=== PATIENT | male | born 1940 | race Caucasian/White ===

== ENCOUNTER 2018-04-25 21:58 | Inpatient (IN) | payer OTHER, MEDICARE ==
[~2018-04-25] VITALS: Ht 180.3 cm; Wt 120.1 kg
[~2018-04-25 21:58] MED LIST: ALBIPROI INH; ALBU2.5V5 NEB; ASPI325 PO; ASPI81EC PO; ATOR40TA PO; ATORVASTATIN CA80 MG PO; AZIT250 PO; AZIT500 PO; CEPH500 PO; CILO100 PO; CILO50 PO; CLOP75 PO; COMBIVENT RESPIM4 GM IH; DELTASONE20 MG PO; DIAZ5 PO; DOCU100 PO; DURICEF; FERR325 PO; FISH1000 PO; FLUSAL2505 INH; FURO20 PO; GABA100 PO; GABA300 PO; GABA600 PO; HYDACE10B PO; HYDACE5 PO; HYDACE5325 PO; HYDCHL12.5 PO; HYDRA25 PO; HYDROCHLOTHIAZIDE; LAVAP17G PO; LISI20 PO; LOSA50 PO; LOSHYD100 PO; METO25 PO; MULVITMIND PO; NITR.4SL SL; NYST100P TOP; OMEG1CAP30 PO; OMEP20ER PO; OMEP40CA12 PO; OXYACE5T PO; Omeprazole20 M1 PO; PINDOLOL 5 MG; PINDOLOL PO; POLY17UD PO; POTCHL10ER PO; POTCHL20ER PO; PRED10; PRED20 PO; ROBITUSSIN DM PO; ROSU10TA PO; SIMV20 PO; SIMV5 PO; SPIR25 PO; STRIVERDI RESPIM4 GM INH; SULTRIDS PO; TAMS.4ER PO; THIA100 PO; TIOT18 INH; UREATC TOP; Ventolin Soln3 ML INH; [UNRECOGNIZED DRUG - REMARK]
[2018-04-25 22:12] LABS: Hematocrit 40.9 % (37.0-53.0); Hemoglobin 13.8 g/dL (13.5-17.5); Mean Corpuscular HGB 35.5 pg (26.0-34.0); Mean Corpuscular HGB Conc 33.7 g/dL (31.5-36.5); Mean Corpuscular Volume 105 fL (80-100); Mean Platelet Volume 9.6 fL (9.1-12.4); Platelet Count 212 K/mm3 (150-400); RDW Coefficient Variation 13.7 % (11.7-14.2); RDW Standard Deviation 51.8 fL (35.1-46.3); Red Blood Cell Count 3.89 M/mm3 (4.30-5.90); White Blood Cell Count 12.46 K/mm3 (4.00-11.30)
[2018-04-25 22:30] LABS: BAND PERCENT MAN 4 % (0-8); BASOPHILS ABSOLUTE MAN 0.12 K/mm3 (0.00-0.23); BASOPHILS PERCENT MAN 1 % (0-2); EOSINOPHILS ABSOLUTE MAN 1.74 K/mm3 (0.00-0.68); EOSINOPHILS PERCENT MAN 14 % (0-6); LYMPHOCYTES ABSOLUTE MAN 2.49 K/mm3 (0.84-5.20); LYMPHOCYTES PERCENT MAN 20 % (21-46); MONOCYTES ABSOLUTE MAN 0.74 K/mm3 (0.16-1.47); MONOCYTES PERCENT MAN 6 % (4-13); MYELOCYTE ABSOLUTE MAN 0.12 K/mm3 (0.00-0.00); MYELOCYTE PERCENT MAN 1 % (0-0); NEUTROPHILS ABSOLUTE MAN 7.22 K/mm3 (1.96-9.15); SEG NEUTROPHILS PERCENT MAN 54 % (41-73); TOTAL CELLS COUNTED 100
[2018-04-25 22:35] LABS: Alanine Aminotransfer (ALT/SGP 33 U/L (12-78); Albumin/Globulin Ratio 1.1 (0.8-1.8); Alk Phos 73 U/L (50-136); Anion Gap 10 mmol/L (6-16); Aspartate Aminotrans (AST/SGOT 22 U/L (12-37); Blood Urea Nitrogen 13 mg/dL (8-24); Bun/Creatinine Ratio 15.3 (12.0-20.0); CO2, Blood 26 mmol/L (21-32); Calcium, Blood 9.1 mg/dL (8.5-10.1); Chloride, Blood 99 mmol/L (98-108); Creatinine, Blood 0.85 mg/dL (0.60-1.20); Globulin, Blood 3.5 g/dL (2.2-4.0); Glomerular Filtration Rate >60 (60-); Glucose, Blood 164 mg/dL (70-99); Potassium, Blood 4.1 mmol/L (3.5-5.5); Sodium, Blood 135 mmol/L (136-145); Total Protein, Blood 7.5 g/dL (6.4-8.2)
[2018-04-25] MEDS ORDERED: ALBU90OI INH (22:38)
[2018-04-25] MEDS ORDERED: ALBU3IS INH (22:38)
[2018-04-25] MEDS ORDERED: ASPI325 PO (22:39)
[2018-04-25] MEDS ORDERED: CHOL10002 PO (22:39)
[2018-04-25] MEDS ORDERED: CILO100 (22:40)
[2018-04-25] MEDS ORDERED: CILO100 PO (22:40)
[2018-04-25] MEDS ORDERED: ATHLETE'S FOO35.4 GM TOP (22:42)
[2018-04-25] MEDS ORDERED: CYCL10 PO (22:43)
[2018-04-25] MEDS ORDERED: FISH OIL 1,0001 EAC1 PO (22:44)
[2018-04-25] MEDS ORDERED: Mucus Relief400 MG PO (22:45)
[2018-04-25] MEDS ORDERED: LOSARTAN POTAS100 MG PO (22:45)
[2018-04-25] MEDS ORDERED: GABA300 PO (22:45)
[2018-04-25] MEDS ORDERED: Hair, Skin & N1 EACH PO (22:46)
[2018-04-25] MEDS ORDERED: ASMANEX220 MC1 INH (22:46)
[2018-04-25 22:50] LABS: Troponin I 0.523 ng/mL (0.000-0.040)
[2018-04-25] MEDS ORDERED: STIOLTO RESPIMAT4 GM INH (22:55)
[2018-04-25] MEDS ORDERED: PYRI100 PO (22:57)
[2018-04-26 04:36] LABS: BASOPHILS ABSOLUTE AUTO 0.03 K/mm3 (0.00-0.23); BASOPHILS PERCENT AUTO 0 % (0-2); EOSINOPHILS ABSOLUTE AUTO 0.17 K/mm3 (0.00-0.68); EOSINOPHILS PERCENT AUTO 2 % (0-6); Hematocrit 36.8 % (37.0-53.0); Hemoglobin 12.7 g/dL (13.5-17.5); IMMATURE GRAN ABSOLUTE AUTO 0.09 K/mm3 (0.00-0.10); IMMATURE GRAN PERCENT AUTO 1 % (0-1); LYMPHOCYTES ABSOLUTE AUTO 0.64 K/mm3 (0.84-5.20); LYMPHOCYTES PERCENT AUTO 8 % (21-46); MONOCYTES ABSOLUTE AUTO 0.18 K/mm3 (0.16-1.47); MONOCYTES PERCENT AUTO 2 % (4-13); Mean Corpuscular HGB 36.5 pg (26.0-34.0); Mean Corpuscular HGB Conc 34.5 g/dL (31.5-36.5); Mean Corpuscular Volume 106 fL (80-100); Mean Platelet Volume 9.7 fL (9.1-12.4); NEUTROPHILS ABSOLUTE AUTO 7.28 K/mm3 (1.96-9.15); NEUTROPHILS PERCENT AUTO 87 % (41-73); Platelet Count 184 K/mm3 (150-400); RDW Coefficient Variation 13.6 % (11.7-14.2); RDW Standard Deviation 53.4 fL (35.1-46.3); Red Blood Cell Count 3.48 M/mm3 (4.30-5.90); White Blood Cell Count 8.39 K/mm3 (4.00-11.30)
[2018-04-26 05:01] LABS: Anion Gap 12 mmol/L (6-16); Blood Urea Nitrogen 17 mg/dL (8-24); Bun/Creatinine Ratio 18.5 (12.0-20.0); CO2, Blood 22 mmol/L (21-32); Calcium, Blood 8.7 mg/dL (8.5-10.1); Chloride, Blood 101 mmol/L (98-108); Creatinine, Blood 0.92 mg/dL (0.60-1.20); Glomerular Filtration Rate >60 (60-); Glucose, Blood 181 mg/dL (70-99); Potassium, Blood 4.4 mmol/L (3.5-5.5); Sodium, Blood 135 mmol/L (136-145)
[2018-04-26 10:53] LABS: Troponin I 5.58 ng/mL (0.000-0.040)
[2018-04-26 16:45] LABS: Troponin I 7.1 ng/mL (0.000-0.040)
[2018-04-27 00:56] LABS: BASOPHILS ABSOLUTE AUTO 0.02 K/mm3 (0.00-0.23); BASOPHILS PERCENT AUTO 0 % (0-2); EOSINOPHILS ABSOLUTE AUTO 0.04 K/mm3 (0.00-0.68); EOSINOPHILS PERCENT AUTO 0 % (0-6); Hematocrit 35.8 % (37.0-53.0); Hemoglobin 12.3 g/dL (13.5-17.5); IMMATURE GRAN ABSOLUTE AUTO 0.16 K/mm3 (0.00-0.10); IMMATURE GRAN PERCENT AUTO 1 % (0-1); LYMPHOCYTES PERCENT AUTO 9 % (21-46); MONOCYTES ABSOLUTE AUTO 0.77 K/mm3 (0.16-1.47); MONOCYTES PERCENT AUTO 6 % (4-13); Mean Corpuscular HGB 36.4 pg (26.0-34.0); Mean Corpuscular HGB Conc 34.4 g/dL (31.5-36.5); Mean Corpuscular Volume 106 fL (80-100); Mean Platelet Volume 9.9 fL (9.1-12.4); NEUTROPHILS ABSOLUTE AUTO 10.51 K/mm3 (1.96-9.15); NEUTROPHILS PERCENT AUTO 83 % (41-73); Platelet Count 179 K/mm3 (150-400); RDW Coefficient Variation 13.4 % (11.7-14.2); RDW Standard Deviation 52.9 fL (35.1-46.3); Red Blood Cell Count 3.38 M/mm3 (4.30-5.90)
[2018-04-27 01:10] LABS: Anion Gap 10 mmol/L (6-16); Blood Urea Nitrogen 18 mg/dL (8-24); Bun/Creatinine Ratio 21.7 (12.0-20.0); CO2, Blood 24 mmol/L (21-32); Calcium, Blood 8.6 mg/dL (8.5-10.1); Chloride, Blood 102 mmol/L (98-108); Creatinine, Blood 0.83 mg/dL (0.60-1.20); Glomerular Filtration Rate >60 (60-); Glucose, Blood 151 mg/dL (70-99); Potassium, Blood 4.1 mmol/L (3.5-5.5); Sodium, Blood 136 mmol/L (136-145)
[2018-04-28 05:02] LABS: BASOPHILS ABSOLUTE AUTO 0.02 K/mm3 (0.00-0.23); BASOPHILS PERCENT AUTO 0 % (0-2); EOSINOPHILS PERCENT AUTO 0 % (0-6); Hematocrit 36.4 % (37.0-53.0); Hemoglobin 12.5 g/dL (13.5-17.5); IMMATURE GRAN ABSOLUTE AUTO 0.29 K/mm3 (0.00-0.10); IMMATURE GRAN PERCENT AUTO 2 % (0-1); LYMPHOCYTES ABSOLUTE AUTO 1.03 K/mm3 (0.84-5.20); LYMPHOCYTES PERCENT AUTO 7 % (21-46); MONOCYTES ABSOLUTE AUTO 0.84 K/mm3 (0.16-1.47); MONOCYTES PERCENT AUTO 6 % (4-13); Mean Corpuscular HGB 36.2 pg (26.0-34.0); Mean Corpuscular HGB Conc 34.3 g/dL (31.5-36.5); Mean Corpuscular Volume 106 fL (80-100); Mean Platelet Volume 10.5 fL (9.1-12.4); NEUTROPHILS ABSOLUTE AUTO 11.71 K/mm3 (1.96-9.15); NEUTROPHILS PERCENT AUTO 84 % (41-73); Platelet Count 185 K/mm3 (150-400); RDW Coefficient Variation 13.4 % (11.7-14.2); RDW Standard Deviation 52.7 fL (35.1-46.3); Red Blood Cell Count 3.45 M/mm3 (4.30-5.90); White Blood Cell Count 13.89 K/mm3 (4.00-11.30)
[2018-04-28 05:27] LABS: Anion Gap 10 mmol/L (6-16); Blood Urea Nitrogen 20 mg/dL (8-24); Bun/Creatinine Ratio 25.3 (12.0-20.0); CO2, Blood 21 mmol/L (21-32); Calcium, Blood 8.4 mg/dL (8.5-10.1); Chloride, Blood 104 mmol/L (98-108); Creatinine, Blood 0.79 mg/dL (0.60-1.20); Glomerular Filtration Rate >60 (60-); Glucose, Blood 134 mg/dL (70-99); Potassium, Blood 4.1 mmol/L (3.5-5.5); Sodium, Blood 135 mmol/L (136-145)
[2018-04-29 04:37] LABS: BASOPHILS ABSOLUTE AUTO 0.02 K/mm3 (0.00-0.23); BASOPHILS PERCENT AUTO 0 % (0-2); EOSINOPHILS ABSOLUTE AUTO 0.01 K/mm3 (0.00-0.68); EOSINOPHILS PERCENT AUTO 0 % (0-6); Hematocrit 35.5 % (37.0-53.0); Hemoglobin 12.3 g/dL (13.5-17.5); IMMATURE GRAN ABSOLUTE AUTO 0.49 K/mm3 (0.00-0.10); IMMATURE GRAN PERCENT AUTO 5 % (0-1); LYMPHOCYTES ABSOLUTE AUTO 0.75 K/mm3 (0.84-5.20); LYMPHOCYTES PERCENT AUTO 7 % (21-46); MONOCYTES ABSOLUTE AUTO 0.48 K/mm3 (0.16-1.47); MONOCYTES PERCENT AUTO 5 % (4-13); Mean Corpuscular HGB 36.4 pg (26.0-34.0); Mean Corpuscular HGB Conc 34.6 g/dL (31.5-36.5); Mean Corpuscular Volume 105 fL (80-100); Mean Platelet Volume 9.8 fL (9.1-12.4); NEUTROPHILS ABSOLUTE AUTO 8.53 K/mm3 (1.96-9.15); NEUTROPHILS PERCENT AUTO 83 % (41-73); Platelet Count 165 K/mm3 (150-400); RDW Coefficient Variation 13.2 % (11.7-14.2); RDW Standard Deviation 51.1 fL (35.1-46.3); Red Blood Cell Count 3.38 M/mm3 (4.30-5.90); White Blood Cell Count 10.28 K/mm3 (4.00-11.30)
[2018-04-29] MEDS ORDERED: LEVO750 PO (13:56)
== END 2018-04-29 15:10 | disposition home or self-care (01) | DRG 193 ==
LOC: ER 21:58 → PCU 23:37
PROVIDERS: Emergency Medicine; Family Medicine; Nurse Practitioner Acute Care
PROC: 5A09357 Assistance with Respiratory Ventilation, Less than 24 Consecutive Hours, Continuous Positive Airway Pressure (ICD-10-PCS; principal; 2018-04-25)
PROC: 5A09357 Assistance with Respiratory Ventilation, Less than 24 Consecutive Hours, Continuous Positive Airway Pressure (ICD-10-PCS; 2018-04-29)
DX: J15.9 Unspecified bacterial pneumonia (principal); J96.01 Acute respiratory failure with hypoxia; J44.1 Chronic obstructive pulmonary disease with (acute) exacerbation; I50.32 Chronic diastolic (congestive) heart failure; R07.9 Chest pain, unspecified; R79.89 Other specified abnormal findings of blood chemistry; I11.0 Hypertensive heart disease with heart failure; K21.9 Gastro-esophageal reflux disease without esophagitis; G47.33 Obstructive sleep apnea (adult) (pediatric); I73.9 Peripheral vascular disease, unspecified; E78.5 Hyperlipidemia, unspecified; N40.0 Benign prostatic hyperplasia without lower urinary tract symptoms; Z95.820 Peripheral vascular angioplasty status with implants and grafts; Z87.891 Personal history of nicotine dependence; Z79.899 Other long term (current) drug therapy; R73.9 Hyperglycemia, unspecified; T38.0X5A Adverse effect of glucocorticoids and synthetic analogues, initial encounter; Y92.239 Unspecified place in hospital as the place of occurrence of the external cause; E66.9 Obesity, unspecified; Z68.36 Body mass index [BMI] 36.0-36.9, adult
CPT/HCPCS: 36415; 71045; 71046; 80048; 80053; 82550; 83605; 83880; 84145; 84484; 85025; 85730; 87040; 93005; 93010; 93970; 94640; 94644; 94660; 94762; 96365; 96366; 99285-25; C8929; J0360; J1644; J1650; J1956; J2930; J7030; Q9957

== ENCOUNTER 2018-07-05 12:23 | Emergency (ER) | payer MEDICARE, OTHER ==
[~2018-07-05] VITALS: Ht 180.3 cm; Wt 117.9 kg
[~2018-07-05 12:23] MED LIST changes: +ALBU3IS INH; +ALBU90OI INH; +ASMANEX220 MC1 INH; +ATHLETE'S FOO35.4 GM TOP; +CHOL10002 PO; +CILO100; +CYCL10 PO; +FISH OIL 1,0001 EAC1 PO; +Hair, Skin & N1 EACH PO; +LEVO750 PO; +LOSARTAN POTAS100 MG PO; +Mucus Relief400 MG PO; +PYRI100 PO; +STIOLTO RESPIMAT4 GM INH
[2018-07-05] MEDS ORDERED: Naprosyn500 MG PO (13:51)
== END 2018-07-05 13:58 | disposition home or self-care (01) ==
LOC: ER 12:23
DX: M54.2 Cervicalgia (principal); I10 Essential (primary) hypertension; Z88.0 Allergy status to penicillin; Z88.5 Allergy status to narcotic agent; Z88.1 Allergy status to other antibiotic agents; Z88.8 Allergy status to other drugs, medicaments and biological substances; Z88.6 Allergy status to analgesic agent; Z79.899 Other long term (current) drug therapy; Z79.51 Long term (current) use of inhaled steroids; Z79.82 Long term (current) use of aspirin
CPT/HCPCS: 72040; 99283-25

== ENCOUNTER 2019-04-12 18:56 | Observation (INO) | payer OTHER ==
[~2019-04-12] VITALS: Ht 180.3 cm; Wt 124.7 kg
[~2019-04-12 18:56] MED LIST changes: -ASMANEX220 MC1 INH; +ASMANEX220 MC3 INH; +ASPI81CH PO; -CHOL10002 PO; +LOSA25 PO; -LOSARTAN POTAS100 MG PO; +Naprosyn500 MG PO; +POTA10T PO; -POTCHL20ER PO; -STRIVERDI RESPIM4 GM INH; +VITAMIN D31000 UNIT PO
[2019-04-12 19:59] LABS: BASOPHILS ABSOLUTE AUTO 0.04 K/mm3 (0.00-0.23); BASOPHILS PERCENT AUTO 1 % (0-2); EOSINOPHILS ABSOLUTE AUTO 0.43 K/mm3 (0.00-0.68); EOSINOPHILS PERCENT AUTO 7 % (0-6); Hematocrit 31.9 % (37.0-53.0); Hemoglobin 10.8 g/dL (13.5-17.5); IMMATURE GRAN ABSOLUTE AUTO 0.05 K/mm3 (0.00-0.10); IMMATURE GRAN PERCENT AUTO 1 % (0-1); LYMPHOCYTES ABSOLUTE AUTO 1.49 K/mm3 (0.84-5.20); LYMPHOCYTES PERCENT AUTO 24 % (21-46); MONOCYTES ABSOLUTE AUTO 0.72 K/mm3 (0.16-1.47); MONOCYTES PERCENT AUTO 12 % (4-13); Mean Corpuscular HGB 37.6 pg (26.0-34.0); Mean Corpuscular HGB Conc 33.9 g/dL (31.5-36.5); Mean Corpuscular Volume 111 fL (80-100); Mean Platelet Volume 9.5 fL (9.1-12.4); NEUTROPHILS PERCENT AUTO 56 % (41-73); Platelet Count 213 K/mm3 (150-400); RDW Coefficient Variation 13.1 % (11.7-14.2); RDW Standard Deviation 52.7 fL (35.1-46.3); Red Blood Cell Count 2.87 M/mm3 (4.30-5.90); White Blood Cell Count 6.13 K/mm3 (4.00-11.30)
[2019-04-12 20:24] LABS: Alanine Aminotransfer (ALT/SGP 23 U/L (12-78); Albumin, Blood 3.5 g/dL (3.4-5.0); Albumin/Globulin Ratio 1.1 (0.8-1.8); Alk Phos 71 U/L (50-136); Anion Gap 7 mmol/L (6-16); Aspartate Aminotrans (AST/SGOT 19 U/L (12-37); Blood Urea Nitrogen 21 mg/dL (8-24); Bun/Creatinine Ratio 17.6 (12.0-20.0); CO2, Blood 25 mmol/L (21-32); Calcium, Blood 8.7 mg/dL (8.5-10.1); Chloride, Blood 102 mmol/L (98-108); Creatinine, Blood 1.19 mg/dL (0.60-1.20); Globulin, Blood 3.1 g/dL (2.2-4.0); Glomerular Filtration Rate >60 (60-); Glucose, Blood 96 mg/dL (70-99); Magnesium, Blood 2.1 mg/dL (1.6-2.4); Potassium, Blood 5.3 mmol/L (3.5-5.5); Sodium, Blood 134 mmol/L (136-145); Total Protein, Blood 6.6 g/dL (6.4-8.2); Troponin I 0.209 ng/mL (0.000-0.040)
[2019-04-12] MEDS ORDERED: ACET500 PO (21:12)
[2019-04-12] MEDS ORDERED: FINA5 PO (21:13)
[2019-04-12] MEDS ORDERED: Culturelle1 CAP PO (21:14)
[2019-04-12] MEDS ORDERED: BACL10 PO (21:20)
[2019-04-12] MEDS ORDERED: Naproxen250 MG PO (21:24)
--- NOTE | 2019-04-12 23:32 | NUR ---
2250 PT ADMITTED TO RM 357 PER WHEELCHAIR FROM ER. TELEMETRY REFLECTS SINUS BRADYCARDIA AT 55. 2320 KILN FURNITURE SAW TENDER JOHN CALLED AND REPORT PATIENT HAD 7 SECOND PAUSE WITH CURRENT RYTHYM SECOND DEGREE BLOCK, TYPE I. THIS NURSE CALLED Malika SAM NP AND ADVISED OF ALL THIS INFO. CONTINUE TO MONITOR.
--- NOTE | 2019-04-13 06:31 | NUR ---
SHIFT SUMMARY: 78 Y/O MALE RESTED COMFORTABLY ALL SHIFT. PT IS ALERT AND ORIENTED X 4, ABLE TO TRANSFER AND AMBULATE BATHROOM AND BACK X 1 STANDBY ASSIST. PT DENIES CHEST PAIN OR NAUSEA. PTS TELEMETRY REFLECTS NSR, SECOND DEGREE HEART BLOCK, TYPE I. PT DID HAVE ONE EPISODE 6.7 SECOND FLAT LINE WHICH WAS REPORTED TO MD. PTS BED LOW POSITION, CALL LIGHT AT SIDE.
--- NOTE | 2019-04-13 20:04 | NUR ---
SHIFT SUMMARY PT A&Ox4. CALM AND COOPERATIVE. PT RESTING IN BED DURING SHIFT. UP 1 PERSON ASSIST TO BATHROOM. PT DENIES PAIN, SOB AND N/V DURINGS SHIFT. PT RECEIVING PO ANTIBIOTICS FOR CELLULITIS TO LLE, BLE DARK RED IN COLOR. TELE SECOND DEGREE HB TYPE 1, NO TELE EVENT REPORT DURING SHIFT. DR CARRASCO CONSULTED. VSS. NO OTHER ACUTE CHANGES NOTED DURING SHIFT. REPORT GIVEN TO ONCOMING RN.
[2019-04-14 04:57] LABS: Anion Gap 9 mmol/L (6-16); Blood Urea Nitrogen 22 mg/dL (8-24); Bun/Creatinine Ratio 20.4 (12.0-20.0); CO2, Blood 23 mmol/L (21-32); Calcium, Blood 8.6 mg/dL (8.5-10.1); Chloride, Blood 102 mmol/L (98-108); Creatinine, Blood 1.08 mg/dL (0.60-1.20); Glomerular Filtration Rate >60 (60-); Glucose, Blood 103 mg/dL (70-99); Potassium, Blood 4.2 mmol/L (3.5-5.5); Sodium, Blood 134 mmol/L (136-145)
--- NOTE | 2019-04-14 06:26 | NUR ---
SHIFT SUMMARY: 78 Y/O OBESE MALE RESTED COMFORTABLY ALL SHIFT WITH NO C/O PAIN, DYSPNEA OR NAUSEA. PTS LLE STILL RED AND WARM TO TOUCH WITH KEFLEX PO BEING TAKEN. PT HAD CARDIOLOGY CONSULT AND MAY HAVE POSSIBLE HALTER MONITOR AT TIME DISCHARGE. PT EAGER TO RETURN HOME. PTS USING A WARM HEATING K PAD TO NECK FOR GENERALIZED DISCOMFORT. PTS BED LOW POSITION, CALL LIGHT AT SIDE.
--- NOTE | 2019-04-14 11:15 | NUR ---
CARDIOLOGY: DR BENOIT IN TO SEE PATIENT. OK FOR PATIENT TO DC HOME LONG FOLLOW UP CAN BE ARRNAGED. [facility] TO SEE ABOUT [facility].
[2019-04-14] MEDS ORDERED: CEPH500 PO (12:42)
--- NOTE | 2019-04-14 14:10 | NUR ---
DISCHARGE: PT DC TO HOME WITH FAMILY. SCRIPT GIVEN, [facility] TO [facility]. ORDER ENTERED FOR HOLTER MONITOR. PT TO FOLLOW UP WITH CARDIOLOGY FOR OUTPATIENT WORKUP. VERBALIZED UNDERSTANDING OF INSTRUCTIONS, FOLLOW UP, PROBLEMS TO REPORT AND MEDICATIONS. IV DC'D WNL. PT LEFT VIA WHEELCHAIR TO CAR WITH BELONGINGS.
== END 2019-04-14 14:15 | disposition home or self-care (01) ==
LOC: ER 18:56 → MEDS 18:57 → ENPENDDIS 04-14 12:14 → MEDS 04-14 14:15
PROVIDERS: Emergency Medicine; Internal Medicine; ADMIT Hospitalist
DX: I44.1 Atrioventricular block, second degree (principal); I87.2 Venous insufficiency (chronic) (peripheral); J44.9 Chronic obstructive pulmonary disease, unspecified; R77.8 Other specified abnormalities of plasma proteins; E66.9 Obesity, unspecified; I73.9 Peripheral vascular disease, unspecified; I50.30 Unspecified diastolic (congestive) heart failure
CPT/HCPCS: 36415; 80048; 80053; 83735; 84484; 85025; 93005; 93010; 93306; 94640; 94760; 96372; 99285; A9270; G0378; J1650

== ENCOUNTER 2019-05-24 23:50 | Emergency (ER) | payer OTHER ==
[~2019-05-24] VITALS: Ht 180.3 cm; Wt 127.0 kg
[~2019-05-24 23:50] MED LIST changes: +ACET500 PO; +BACL10 PO; +Culturelle1 CAP PO; +FINA5 PO; +Naproxen250 MG PO
[2019-05-25 00:25] LABS: Calcium, Ionized (POC) 1.17 mmol/L (1.10-1.46); Chloride (POC) 97 mmol/L (98-108); Creatinine (POC) 1.1 mg/dL (0.8-1.3); Glucose (ISTAT POC) 101 mg/dL (70-99); Hemoglobin (POC) 11.9 g/dL (13.5-17.5); Potassium (POC) 4.4 mmol/L (3.5-5.5); Sodium (POC) 129 mmol/L (135-148); Total CO2 (POC) 20 mmol/L (21-32)
[2019-05-25 00:59] LABS: BASOPHILS ABSOLUTE AUTO 0.05 K/mm3 (0.00-0.23); BASOPHILS PERCENT AUTO 1 % (0-2); EOSINOPHILS ABSOLUTE AUTO 0.42 K/mm3 (0.00-0.68); EOSINOPHILS PERCENT AUTO 7 % (0-6); Hematocrit 34.5 % (37.0-53.0); Hemoglobin 11.6 g/dL (13.5-17.5); IMMATURE GRAN ABSOLUTE AUTO 0.07 K/mm3 (0.00-0.10); IMMATURE GRAN PERCENT AUTO 1 % (0-1); LYMPHOCYTES ABSOLUTE AUTO 1.47 K/mm3 (0.84-5.20); LYMPHOCYTES PERCENT AUTO 26 % (21-46); MONOCYTES PERCENT AUTO 12 % (4-13); Mean Corpuscular HGB 36.3 pg (26.0-34.0); Mean Corpuscular HGB Conc 33.6 g/dL (31.5-36.5); Mean Corpuscular Volume 108 fL (80-100); Mean Platelet Volume 9.4 fL (9.1-12.4); NEUTROPHILS ABSOLUTE AUTO 2.94 K/mm3 (1.96-9.15); NEUTROPHILS PERCENT AUTO 52 % (41-73); Platelet Count 188 K/mm3 (150-400); RDW Coefficient Variation 12.9 % (11.7-14.2); RDW Standard Deviation 50.8 fL (35.1-46.3); White Blood Cell Count 5.65 K/mm3 (4.00-11.30)
[2019-05-25 01:18] LABS: Alanine Aminotransfer (ALT/SGP 24 U/L (12-78); Albumin, Blood 3.9 g/dL (3.4-5.0); Albumin/Globulin Ratio 1.1 (0.8-1.8); Alk Phos 74 U/L (50-136); Anion Gap 8 mmol/L (6-16); Aspartate Aminotrans (AST/SGOT 17 U/L (12-37); Bilirubin, Total 0.7 mg/dL (0.1-1.0); Blood Urea Nitrogen 15 mg/dL (8-24); Bun/Creatinine Ratio 15.2 (12.0-20.0); CO2, Blood 23 mmol/L (21-32); Chloride, Blood 99 mmol/L (98-108); Creatinine, Blood 0.99 mg/dL (0.60-1.20); Globulin, Blood 3.5 g/dL (2.2-4.0); Glomerular Filtration Rate >60 (60-); Glucose, Blood 102 mg/dL (70-99); Potassium, Blood 4.4 mmol/L (3.5-5.5); Sodium, Blood 130 mmol/L (136-145); Total Protein, Blood 7.4 g/dL (6.4-8.2)
== END 2019-05-25 02:05 | disposition home or self-care (01) ==
LOC: ER 23:50
PROVIDERS: Emergency Medicine
DX: R04.0 Epistaxis (principal); E87.1 Hypo-osmolality and hyponatremia; I10 Essential (primary) hypertension; Z88.1 Allergy status to other antibiotic agents; Z88.5 Allergy status to narcotic agent; Z88.6 Allergy status to analgesic agent; Z88.8 Allergy status to other drugs, medicaments and biological substances; Z79.899 Other long term (current) drug therapy; Z79.82 Long term (current) use of aspirin
CPT/HCPCS: 36415; 80047; 80053; 85014; 85025; 99283; J7030

== ENCOUNTER 2019-06-11 14:18 | Inpatient (IN) | payer OTHER ==
[~2019-06-11] VITALS: Ht 180.3 cm; Wt 126.2 kg
[2019-06-11 15:02] LABS: BASOPHILS ABSOLUTE AUTO 0.04 K/mm3 (0.00-0.23); BASOPHILS PERCENT AUTO 1 % (0-2); EOSINOPHILS ABSOLUTE AUTO 0.51 K/mm3 (0.00-0.68); EOSINOPHILS PERCENT AUTO 11 % (0-6); Hematocrit 35.6 % (37.0-53.0); Hemoglobin 12.4 g/dL (13.5-17.5); IMMATURE GRAN ABSOLUTE AUTO 0.05 K/mm3 (0.00-0.10); IMMATURE GRAN PERCENT AUTO 1 % (0-1); LYMPHOCYTES ABSOLUTE AUTO 1.34 K/mm3 (0.84-5.20); LYMPHOCYTES PERCENT AUTO 29 % (21-46); MONOCYTES ABSOLUTE AUTO 0.58 K/mm3 (0.16-1.47); MONOCYTES PERCENT AUTO 13 % (4-13); Mean Corpuscular HGB 37.8 pg (26.0-34.0); Mean Corpuscular HGB Conc 34.8 g/dL (31.5-36.5); Mean Corpuscular Volume 109 fL (80-100); Mean Platelet Volume 9.7 fL (9.1-12.4); NEUTROPHILS ABSOLUTE AUTO 2.12 K/mm3 (1.96-9.15); NEUTROPHILS PERCENT AUTO 46 % (41-73); Platelet Count 202 K/mm3 (150-400); RDW Coefficient Variation 12.5 % (11.7-14.2); RDW Standard Deviation 50.2 fL (35.1-46.3); Red Blood Cell Count 3.28 M/mm3 (4.30-5.90); White Blood Cell Count 4.64 K/mm3 (4.00-11.30)
[2019-06-11 15:31] LABS: Alanine Aminotransfer (ALT/SGP 22 U/L (12-78); Albumin/Globulin Ratio 1.1 (0.8-1.8); Alk Phos 74 U/L (50-136); Anion Gap 7 mmol/L (6-16); Aspartate Aminotrans (AST/SGOT 18 U/L (12-37); Bilirubin, Total 1.1 mg/dL (0.1-1.0); Blood Urea Nitrogen 11 mg/dL (8-24); Bun/Creatinine Ratio 15.2 (12.0-20.0); CO2, Blood 23 mmol/L (21-32); Calcium, Blood 9.2 mg/dL (8.5-10.1); Chloride, Blood 101 mmol/L (98-108); Creatinine, Blood 0.73 mg/dL (0.60-1.20); Globulin, Blood 3.6 g/dL (2.2-4.0); Glomerular Filtration Rate >60 (60-); Glucose, Blood 102 mg/dL (70-99); Potassium, Blood 4.5 mmol/L (3.5-5.5); Sodium, Blood 131 mmol/L (136-145); Total Protein, Blood 7.6 g/dL (6.4-8.2); Troponin I 0.319 ng/mL (0.000-0.040)
[2019-06-11] MEDS ORDERED: DOCU100 PO (16:54)
[2019-06-11] MEDS ORDERED: GABA300 PO (16:56)
[2019-06-11] MEDS ORDERED: LIDO5TO TOP (16:57)
[2019-06-11] MEDS ORDERED: STIOLTO RESPIMAT4 GM INH (16:59)
[2019-06-11] MEDS ORDERED: MIRALAX17 GM PO (17:00)
--- NOTE | 2019-06-11 18:47 | NUR ---
ARRIVAL TO ICU 1814 - PT ARRIVES TO ICU AT THIS TIME. HE IS A/O X3, CALM AND COOPERATIVE. DENIES PAIN. CURRENTLY IN BLOCK, HR 60S WITH VISIBLE PAUSES. BP ELEVATED AT 200-220 SYSTOLIC. MD MADRID CALLED AND NOTIFIED; T.O. TO ADMINSTER HOME DOSE OF LOSARTAN AND PRN HYDRALAZINE. CURRENTLY AWAITING VERIFICAITON FROM PHARMACY. FAMILY AT BEDSIDE. SPO2 96% ON RA. CALL LIGHT WITHIN REACH. IV SALINE LOCKED. WILL GIVE BEDSIDE, HANDOFF REPORT TO JOSE RN.
--- NOTE | 2019-06-11 19:15 | NUR ---
ASSUMED CARE PT SITTING UP IN BED, DENIES COMPLAINTS. PER REPORT, PT JUST ARRIVED POST APPOINTMENT AT [facility] WHERE HR IN THE 20'S AND THIRD DEGREE HEART BLOCK FOUND. CURRENTLY, PT IS IN FIRST DEGREE IN THE 80'S, DENIES COMPLAINTS OF DIZZINESS, + SOB WITH ACTIVITY BUT PT REPORTS THIS IS HIS BASELINE. PLAN FOR PERM PACEMAKER TOMORROW, TIME GIVEN TO SON AND . DR CABRERA CALLED REQUESTING UPDATE, PLANS TO ENTER ORDERS FOR BP MEDS SINCE SBP REMAINS >200. RT IN ROOM SETTING UP CPAP FOR HS USE.
--- NOTE | 2019-06-12 | NUR ---
NPO PT NPO FOR PACEMAKER PLACEMENT IN AM.
[2019-06-12 04:05] LABS: International Normalized Ratio 1.02; Prothrombin Time Results 10.8 Sec (9.7-11.5)
[2019-06-12 04:08] LABS: Anion Gap 10 mmol/L (6-16); Blood Urea Nitrogen 13 mg/dL (8-24); Bun/Creatinine Ratio 16.9 (12.0-20.0); CO2, Blood 26 mmol/L (21-32); Calcium, Blood 8.9 mg/dL (8.5-10.1); Chloride, Blood 98 mmol/L (98-108); Creatinine, Blood 0.77 mg/dL (0.60-1.20); Glomerular Filtration Rate >60 (60-); Glucose, Blood 102 mg/dL (70-99); Magnesium, Blood 1.9 mg/dL (1.6-2.4); Potassium, Blood 4.1 mmol/L (3.5-5.5); Sodium, Blood 134 mmol/L (136-145)
[2019-06-12 05:07] LABS: Source, Urine Catheter
[2019-06-12 05:09] LABS: Bilirubin, Urine Neg (Neg); Blood, Urine Neg (Neg); Glucose Qualitative, Urine Neg (Neg); Ketones, Urine Neg (Neg); Leukocyte Esterase, Urine Neg (Neg); Nitrite, Urine Neg (Neg); Protein, Urine 3+ (Neg); Specific Gravity, Urine 1.005 (1.003-1.022); Urobilinogen, Urine NORM (Normal)
[2019-06-12 05:13] LABS: Appearance, Urine Clear (Clear); Color, Urine Yellow (P-Yellow)
[2019-06-12 05:21] LABS: Bacteria Rare /hpf; Red Blood Cells, Urine 0-2 /hpf (0-2); Squamous Epithelial Cells Not Seen /hpf (Few); White Blood Cells, Urine 0-2 /hpf (0-5)
--- NOTE | 2019-06-12 06:02 | NUR ---
SHIFT SUMMARY NO ACUTE EVENTS OVERNIGHT. PT NPO SINCE MIDNIGHT FOR PACEMAKER PLACEMENT THIS AM. PT REFUSED [facility] CPAP, TO BRING IN HIS CPAP FOR TONIGHT, USED O2 WHILE ASLEEP FOR SPO2 DROPS. ECG SHOWS FIRST DEGREE AVB FOR ENTIRE SHIFT, LOWEST RATE, UNSUSTAINED NOTED WHILE ASLEEP AT 46. BP OCCASIONALLY HYPERTENSIVE, BUT NO HYDRALAZINE GIVEN AFTER RECHECK SBP HAS BEEN <160. UOP >3L POST LASIX LAST NIGHT.
--- NOTE | 2019-06-12 06:40 | NUR ---
DR CABRERA IN DR IN TO SEE PT, UPDATED ON UOP >3L FOR SHIFT, BP AND PLAN FOR PACEMAKER THIS AM. DR CABRERA REQUESTED PT HAVE ALL HIS HTN MEDS THIS AM.
--- NOTE | 2019-06-12 08:10 | NUR ---
INITIAL ASSESSMENT PATIENT RESTING QUIETLY IN BED UPON ENTERING ROOM. PATIENT ALERT AND ORIENTED X 4, AFEBRILE. PATIENT REPORTS N/T IN ALL EXTREMITIES AND STATES THAT THIS IS NORMAL FOR HIM. PATIEN WEAK, 1 PERSON ASSIST. PATIENT SATTING 90% AND GREATER ON RA. LUNGS CLEAR IN UPPER LOBES, DIMINISHED IN LOWER LOBES. CRACKLES NOTED IN LLL. PATIENT REPORTS THAT HE WEARS CPAP WITH 2 L O2 AT NIGHT AT HOME. PATIENT STATES HE HAS COPD COUGH AND SPUTUM- MODERATE AMOUNT OF SPUTUM, FROTHY AND WHITE. PATIENT IN AV BLOCK. HR 40S TO 80S. SBP 170 TO 181. ABDOMEN MODERATELY DISTENDED- PATIENT REPORTS NORMAL FOR HIM. ABD SOFT, NONTENDER, WITH NORMOACTIVE BS NOTED. PATIENT HAD MEDIUM SIZED, FORMED, BROWN STOOL THIS AM. PATIENT HAS BEEN NPO SINCE MIDNIGHT FOR PACEMAKER PLACEMENT SCHEDULED TODAY. BESS IN PLACE AND DRAINING YELLOW COLORED URINE. REDDENED GROIN FOLDS NOTED. DRESSINGS IN PLACE TO BLES- PATIENT STATES IT IS FROM [place] AND THAT [facility] SPECIAL[facility] IS [facility]NA[facility]ING THE DRESSINGS AND THAT HE IS TO BE SEEN ON MONDAY AGAIN FOR THEM. IVS FLUSHED AND SALINE LOCKED. BED LOW, CALL LIGHT IN REACH. FAMILY AT BEDSIDE. WILL CONTINUE TO MONITOR PATIENT FREQUENTLY T/O SHIFT.
--- NOTE | 2019-06-12 10:38 | NUR ---
PATIENT TAKEN FOR PACEMAKER PROCEDURE BY VEGETABLE TIER RN.
--- NOTE | 2019-06-12 13:25 | NUR ---
PATIENT BACK FROM PACEMAKER PLACEMENT AT 1250. DUAL CHAMBER PPM PLACED. SURGICAL SITE TO LEFT CHEST WALL APPEARS WNL- TEGADERM DRESSING IN PLACE. PATIENT ALERT AND ORIENTED, IN GOOD SPIRITS. AFEBRILE. VITAL SIGNS STABLE. PATIENT IN SR WITH BBB, OCCASIONALLY VENTRICULARLY PACED. HR 60S TO 70S. BP STABLE. FAMILY NOW AT BEDSIDE. NO COMPLAINTS AT THIS TIME. WILL CONTINUE TO MONITOR.
--- NOTE | 2019-06-12 16:13 | NUR ---
SHIFT SUMMARY PATIENT HAS REMAINED ALERT AND ORIENTED T/O SHIFT. AFEBRILE. PATIENT GIVEN PRN TYLENOL OT DURING SHIFT FOR COMPLAINT OF NECK PAIN. PATIENT REMAINED SATTING WELL ON RA. PATIENT'S BROUGHT IN HOME CPAP FOR NIGHT. PATIENT IN FIRST DEGREE BLOCK BEFORE DUAL CHAMBER PPM PLACEMENT. PATIENT NOW IN SR WITH BBB AND OCCASIONALLY VENT PACED. VITAL HAVE BEEN STABLE. PATIENT HAD MEDIUM, SOFT, BROWN BM. PATIENT TOLERATING DIET WELL SINCE PACER PLACEMENT. BESS DRAINING DARK YELLOW URINE. NO CHANGE TO SKIN. NYSTATIN ORDERED FOR REDDENED KEON/ GROIN FOLDS. PATIENT REMAINS SALINE LOCKED. FAMILY AT BEDSIDE. REPORT HAS BEEN GIVEN TO ASSUMING PCU NURSE. PATIENT WILL BE TRANSFERRING SHORTLY TO PCU ROOM 02.
--- NOTE | 2019-06-12 17:01 | NUR ---
PATIENT TRANSFERRED TO PCU.
--- NOTE | 2019-06-12 17:11 | NUR ---
NURSING PCU DAYSHIFT SUMMARY: Assumed care of pt at approx 1700. Arrived from ICU via w/c accompanied by PCT and family members. Xfer w/SBA to unit bed w/o difficulty. C/O mild pain to LCW r/t recent pacer placement, site appears stable w/no bleed or hematoma noted. Tele placed, HR 60's, occ paced. No respiratory distress noted, w/mild dyspnea w/exertion, home CPAP at bedside, O2 sat stable on RA. Abd obese, nontender, FC in place and draining well. PIV x2, s/l. No s/s of acute distress upon arrival. Pt and family oriented to unit, call light placed in reach. Pt denies any current needs, anticipating discharge home tomorrow morning, cont to monitor until rpt is given to NOC RN.
--- NOTE | 2019-06-12 20:00 | NUR ---
CARE ASSUMPTION PT A&O X4. VSS. L UPPER CHEST WALL NOTED TO BE SLIGHTLY RED AND SWOLLEN POST PLACER IMPLANTATION W/ SMALL BLEED. PT C/O L SHOULDER BEING "SORE". PT REQUESTING SLING FOR ARM BUT FOUND SLING TO BE UNCOMFORTABLE, PT NO LONGER WEARING. L ARM SUPPORTED AT PT'S SIDE AND ACROSS PT'S CHEST W/ PILLOW. WILL CONTINUE TO MONITOR AND PROVIDE CARE.
--- NOTE | 2019-06-12 22:00 | NUR ---
RED COLORED URINE IN BESS BAG PT UP TO BATHROOM W/ NOTED RED COLORED URINE IN BESS CATH COLLECTION BAG REPORTED TO BE NEW. WHEN DISCUSSING POTENTIAL CAUSE PT STATES HAVING "TUGGED" AT THE CATHETER LINE AND IT "PULLING INSIDE." WILL CONTINUE TO MONITOR.
--- NOTE | 2019-06-13 06:22 | NUR ---
SHIFT SUMMARY PT A&O X4. VSS. L CHEST WALL POST PACER UNCHANGED THIS SHIFT W/ SMALL AMOUNT OF BLOOD UNDER DRESSING. PT C/O L SHOULDER AND NECK SORENESS, MEDICATING PER EMAR. BLOOD TINGED URINE NOTED IN BESS CATH BAG THIS SHIFT, NOW YELLOW ONLY AGAIN. PT AWAITING DC HOME. WILL CONTINUE TO MONITOR AND PROVIDE CARE UNTIL REPORT OFF TO DAY SHIFT RN.
--- NOTE | 2019-06-13 07:47 | NUR ---
NURSING PCU DAYSHIFT: Assumed care of pt at approx 0700. A/O, pleasant, cooperative w/care. C/O 2-3 chronic BLE pain and mild L shoulder discomfort r/t recent pacer placement. Pacer site appears stable w/no bleed or hematoma noted. Redness to skin folds, BLE w/dressings in place d/t PVD, no other breakdown noted. Mild general weakness, chronic numbness/tingling of all ext's. Tele in place, paced, no c/o CP/pressure, SBP 160's prior to a.m. meds. L/S dim in mid/lower lobes, dyspnea w/minimal exertion, O2 sat low 90's on RA, c/o occ cough producing clear sputum, continuous bedside O2 monitoring. Abd obese, SNT, BT+, FC w/stat lock in place at initial assessment. PIV x2, s/l. Seen by PMD, d/o received from cardiology, plan for discharge home today. FC dc'd w/o difficulty, pt tolerated well. Pt denies any current needs, anticipating discharge home. Call light remains in reach, cont to monitor for any changes.
[2019-06-13] MEDS ORDERED: ACET500 PO (09:07)
[2019-06-13] MEDS ORDERED: AMLO10 PO (09:10)
[2019-06-13] MEDS ORDERED: ATEN25 PO (09:11)
[2019-06-13] MEDS ORDERED: CLOP75 PO (09:11)
--- NOTE | 2019-06-13 09:34 | NUR ---
NURSING PCU DISCHARGE SUMMARY: No acute changes noted t/o the a.m. Family at bedside. Seen by PMD, discharge home d/o received. Pt and family verbalized understanding of all written and verbal discharge intructions, pacer info box sent w/pt, [facility]. PIV x2 dc'd w/caths intact. No s/s of acute distress at this time, cont to monitor until escort from unit is complete.
== END 2019-06-13 10:23 | disposition home or self-care (01) | DRG 243 ==
LOC: ER 14:18 → ICUW 16:23 → ICUE 16:23 → PCU 06-12 17:04
PROVIDERS: Internal Medicine Cardiovascular Disease; Physician Assistant; ADMIT Internal Medicine
PROC: 0JH606Z Insertion of Pacemaker, Dual Chamber into Chest Subcutaneous Tissue and Fascia, Open Approach (ICD-10-PCS; principal; 2019-06-12)
PROC: 02HK3JZ Insertion of Pacemaker Lead into Right Ventricle, Percutaneous Approach (ICD-10-PCS; 2019-06-12)
DX: I44.2 Atrioventricular block, complete (principal); I50.32 Chronic diastolic (congestive) heart failure; I45.5 Other specified heart block; J44.9 Chronic obstructive pulmonary disease, unspecified; E11.51 Type 2 diabetes mellitus with diabetic peripheral angiopathy without gangrene; G47.33 Obstructive sleep apnea (adult) (pediatric); N40.0 Benign prostatic hyperplasia without lower urinary tract symptoms; E11.40 Type 2 diabetes mellitus with diabetic neuropathy, unspecified; K21.9 Gastro-esophageal reflux disease without esophagitis; I11.0 Hypertensive heart disease with heart failure; E78.5 Hyperlipidemia, unspecified; E66.01 Morbid (severe) obesity due to excess calories; Z87.891 Personal history of nicotine dependence; Z79.1 Long term (current) use of non-steroidal anti-inflammatories (NSAID); Z79.82 Long term (current) use of aspirin; Z79.899 Other long term (current) drug therapy; Z88.6 Allergy status to analgesic agent; Z88.1 Allergy status to other antibiotic agents; Z88.5 Allergy status to narcotic agent; Z88.8 Allergy status to other drugs, medicaments and biological substances
CPT/HCPCS: 33208; 36415; 51703; 71046; 80048; 80053; 81001; 83735; 83880; 84484; 85025; 85610; 86850; 86900; 86901; 93005; 93010; 94640; 94660; 94762; 99152; 99153; 99285-25; C1785; C1898; J1644; J1940; J2250; J2405; J3010; J7040; Q9967

== ENCOUNTER 2020-04-27 11:30 | Observation (INO) | payer OTHER ==
[~2020-04-27] VITALS: Ht 180.3 cm; Wt 136.8 kg
[~2020-04-27 11:30] MED LIST changes: +ASPI325EC PO; -ASPI81CH PO; +ATEN25 PO; +LIDO5TO TOP; -LOSA25 PO; +MIRALAX17 GM PO; +NORVASC10 MG PO
[2020-04-27 11:58] LABS: BASOPHILS ABSOLUTE AUTO 0.01 K/mm3 (0.00-0.23); BASOPHILS PERCENT AUTO 0 % (0-2); EOSINOPHILS ABSOLUTE AUTO 0.09 K/mm3 (0.00-0.68); EOSINOPHILS PERCENT AUTO 1 % (0-6); Hematocrit 32.9 % (37.0-53.0); Hemoglobin 10.9 g/dL (13.5-17.5); IMMATURE GRAN ABSOLUTE AUTO 0.05 K/mm3 (0.00-0.10); IMMATURE GRAN PERCENT AUTO 1 % (0-1); LYMPHOCYTES ABSOLUTE AUTO 0.51 K/mm3 (0.84-5.20); LYMPHOCYTES PERCENT AUTO 6 % (21-46); MONOCYTES ABSOLUTE AUTO 0.19 K/mm3 (0.16-1.47); MONOCYTES PERCENT AUTO 2 % (4-13); Mean Corpuscular HGB 37.1 pg (26.0-34.0); Mean Corpuscular HGB Conc 33.1 g/dL (31.5-36.5); Mean Corpuscular Volume 112 fL (80-100); Mean Platelet Volume 10.6 fL (9.1-12.4); NEUTROPHILS ABSOLUTE AUTO 7.61 K/mm3 (1.96-9.15); NEUTROPHILS PERCENT AUTO 90 % (41-73); NRBC ABSOLUTE 0.02 K/mm3 (0.00-0.02); NRBC Auto 0.2 /100 WBC (0.0-0.2); Platelet Count 162 K/mm3 (150-400); RDW Coefficient Variation 14.3 % (11.7-14.2); RDW Standard Deviation 58.4 fL (35.1-46.3); Red Blood Cell Count 2.94 M/mm3 (4.30-5.90); White Blood Cell Count 8.46 K/mm3 (4.00-11.30)
[2020-04-27 12:17] LABS: Alanine Aminotransfer (ALT/SGP 24 U/L (12-78); Albumin, Blood 3.9 g/dL (3.4-5.0); Albumin/Globulin Ratio 1.1 (0.8-1.8); Alk Phos 78 U/L (50-136); Anion Gap 7 mmol/L (6-16); Aspartate Aminotrans (AST/SGOT 14 U/L (12-37); Bilirubin, Total 0.9 mg/dL (0.1-1.0); Blood Urea Nitrogen 20 mg/dL (8-24); Bun/Creatinine Ratio 18.9 (12.0-20.0); CO2, Blood 23 mmol/L (21-32); Calcium, Blood 9.2 mg/dL (8.5-10.1); Chloride, Blood 109 mmol/L (98-108); Creatinine, Blood 1.06 mg/dL (0.60-1.20); Globulin, Blood 3.7 g/dL (2.2-4.0); Glomerular Filtration Rate >60 (60-); Glucose, Blood 120 mg/dL (70-99); Potassium, Blood 4.8 mmol/L (3.5-5.5); Sodium, Blood 139 mmol/L (136-145); Total Protein, Blood 7.6 g/dL (6.4-8.2); Troponin I 0.222 ng/mL (0.000-0.040)
[2020-04-27] MEDS ORDERED: FISH OIL CONC1000 M2 PO (12:22)
[2020-04-27] MEDS ORDERED: PANT40 PO (12:23)
[2020-04-27 15:30] LABS: Base Excess Venous -4.1 mmol/L; Bicarbonate Venous 21.2 mmol/L (24.0-30.0); PCO2 Venous 36.3 mmHg (38-42); pH Blood Venous 7.37 (7.34-7.37)
--- NOTE | 2020-04-27 18:16 | NUR ---
PT ARRIVED AT 1730 VIA CART. PT ON 4L O2 R22. PT STATES HE FEELS BETTER THAN WHEN HE ARRIVED TO HOSPITAL. PT SITTING AT SIDE OF BED AT THIS TIME WITH CALL LIGHT WITHIN REACH NO DISTRESS NOTED. PT WAS A ONE PERSON ASSIST TO BEDSIDE COMMODE. PT'S BREATHING IS MUCH MORE LABORED WITH PHYSICAL EFFORT. WILL CONTINUE TO MONITOR. PULSE OXIMETRY IS MONITORING AT THIS TIME.
--- NOTE | 2020-04-28 01:09 | NUR ---
INSOMNIA PT REPORTS DIFFICULTY SLEEPING. STATES HE NORMALLY TAKES 1-2 TABS TYLENOL PM TO HELP HIM SLEEP @NIGHT. ASKED PT IF MELATONIN WORKS & PT STATED NO IT DOES NOT WORK FOR HIM. INFORMED DR PEREZ & HE ORDERED TYLENOL PM @BEDTIME PRN. WILL MEDICATE PER ORDERS & CONTINUE TO MONITOR.
--- NOTE | 2020-04-28 03:20 | NUR ---
SHIFT SUMMARY AOX4. VSS. TELE IN PLACE, RUNNING PACED @70. DENIES N/V. REPORTS 05/01 BURNING, TINGLING PAIN IN HANDS & WAIST DOWN, STATES HE HAS CHRONIC NEUROPATHY. MEDICATED W/TYLENOL, GABAPENTIN & BACLOFEN FOR DISCOMFORT, REPORTS MILD RELIEF. E/U RESPIRATIONS @REST. DYSPNIC W/ACTIVITY. SPO2 >90% ON 4L O2- PT STATES HE NORMALLY WEARS O2 BECAUSE HE DOESN'T WEAR HIS CPAP @HS @HOME. LUNGS SOUND DIM W/CRACKLES BASES. REPORTS HE "BREATHS BETTER" WHEN SITTING UPRIGHT & NORMALLY HE SLEEPS IN A RECLINER. HAS +2 EDEMA IN RT FOOT & +1 EDEMA IN L FOOT, BLE EDEMATOUS, SCALY, DISCOLORED. CALL LIGHT IN REACH. TM
[2020-04-28 04:51] LABS: Base Excess Venous -5.3 mmol/L; PCO2 Venous 25.5 mmHg (38-42); PO2 Venous 120 mmHg (38-42); pH Blood Venous 7.47 (7.34-7.37)
[2020-04-28 04:51] LABS: Hematocrit 29.6 % (37.0-53.0); Hemoglobin 9.7 g/dL (13.5-17.5); Mean Corpuscular HGB 36.7 pg (26.0-34.0); Mean Corpuscular HGB Conc 32.8 g/dL (31.5-36.5); Mean Corpuscular Volume 112 fL (80-100); Mean Platelet Volume 10.8 fL (9.1-12.4); Platelet Count 133 K/mm3 (150-400); RDW Coefficient Variation 14.8 % (11.7-14.2); Red Blood Cell Count 2.64 M/mm3 (4.30-5.90); White Blood Cell Count 17.07 K/mm3 (4.00-11.30)
[2020-04-28 05:11] LABS: Anion Gap 8 mmol/L (6-16); Blood Urea Nitrogen 27 mg/dL (8-24); Bun/Creatinine Ratio 22.3 (12.0-20.0); CO2, Blood 21 mmol/L (21-32); Calcium, Blood 8.6 mg/dL (8.5-10.1); Chloride, Blood 107 mmol/L (98-108); Creatinine, Blood 1.21 mg/dL (0.60-1.20); Glomerular Filtration Rate >60 (60-); Glucose, Blood 155 mg/dL (70-99); Potassium, Blood 4.7 mmol/L (3.5-5.5); Sodium, Blood 136 mmol/L (136-145)
[2020-04-28] MEDS ORDERED: SENNA-PLUS TAB1 EACH PO (11:56)
[2020-04-28] MEDS ORDERED: ABAT250V (11:57)
[2020-04-28] MEDS ORDERED: PRED20 PO (11:57)
--- NOTE | 2020-04-28 16:01 | NUR ---
PT DISCHARGED AT 1600 WITH TO TRANSPORT. RESPIRATORY CALLED AND SAID PT CAN GO HOME WITHOUT O2 BEING DELIVERED TO ROOM PT IS 92% RESTING. PT WAS INSTRUCTED TO GET ONE HIS O2 SOON HE GETS INTO HIS HOUSE AND NOT TO WALK AROUND WITHOUT O2. [facility] TO HIS HOME FOR WALKING. PT WAS ALSO INSTRUCTED TO US HIS CPAP EVERY NIGHT AND RECIEVED EXTRA EDUCATION PRIOR TO DISCHARGE FROM RESPIRATORY THERAPIST. PT HAD MEDICATIONS REVIEWED WITH BOTH HIM AND HIS PRESENT AND [facility] TO [facility]. ALL PAPERS SIGNED AND EDUCATIONAL MATERIAL REVIEWED. PT WAS EDUCATED ABOUT HIS COVID 19 TEST AND WAS INSTRUCTED TO STAY HOME UNTIL HE GETS THE FINAL RESULT CALLED TO HIM. PT AND VERBALIZED UNDERSTANDING. PT WHEELCHAIRED OUT TO CAR BY AID TO N ENTRANCE.
== END 2020-04-28 17:18 | disposition home or self-care (01) ==
LOC: ER 11:30 → MEDS 11:31 → ER 14:56 → MEDS 16:54
PROVIDERS: Emergency Medicine; ADMIT Internal Medicine
DX: J96.01 Acute respiratory failure with hypoxia (principal); J44.1 Chronic obstructive pulmonary disease with (acute) exacerbation; I11.0 Hypertensive heart disease with heart failure; I50.32 Chronic diastolic (congestive) heart failure; I87.2 Venous insufficiency (chronic) (peripheral); E78.5 Hyperlipidemia, unspecified; E66.9 Obesity, unspecified; I73.9 Peripheral vascular disease, unspecified; G47.33 Obstructive sleep apnea (adult) (pediatric); Z11.59 Encounter for screening for other viral diseases; Z91.19 Patient's noncompliance with other medical treatment and regimen; Z95.0 Presence of cardiac pacemaker; Z79.82 Long term (current) use of aspirin; Z79.899 Other long term (current) drug therapy; Z88.0 Allergy status to penicillin; Z88.6 Allergy status to analgesic agent; Z88.5 Allergy status to narcotic agent; Z88.8 Allergy status to other drugs, medicaments and biological substances; R79.89 Other specified abnormal findings of blood chemistry; Z68.41 Body mass index [BMI] 40.0-44.9, adult
CPT/HCPCS: 36415; 71045; 80048; 80053; 82803; 83880; 84145; 84484; 85025; 85027; 93005; 93010; 94618; 94640; 94660; 94664; 94667; 94760; 94762; 96374; 98960; 99285-25; A9270; A9270-GY; G0378; J1650; J2930; J7512; U0002; U0003

== ENCOUNTER 2022-06-03 13:38 | Emergency (ER) | payer OTHER ==
[~2022-06-03] VITALS: Ht 177.8 cm; Wt 127.0 kg
[~2022-06-03 13:38] MED LIST changes: +ABAT250V; +FISH OIL CONC1000 M2 PO; +PANT40 PO; +SENNA-PLUS TAB1 EACH PO
[2022-06-03 14:49] LABS: BASOPHILS ABSOLUTE AUTO 0.06 K/mm3 (0.00-0.23); BASOPHILS PERCENT AUTO 1 % (0-2); EOSINOPHILS ABSOLUTE AUTO 0.36 K/mm3 (0.00-0.68); EOSINOPHILS PERCENT AUTO 3 % (0-6); Hematocrit 33.7 % (37.0-53.0); Hemoglobin 11.7 g/dL (13.5-17.5); IMMATURE GRAN ABSOLUTE AUTO 0.14 K/mm3 (0.00-0.10); IMMATURE GRAN PERCENT AUTO 1 % (0-1); LYMPHOCYTES ABSOLUTE AUTO 1.61 K/mm3 (0.84-5.20); LYMPHOCYTES PERCENT AUTO 13 % (21-46); MONOCYTES ABSOLUTE AUTO 1.14 K/mm3 (0.16-1.47); MONOCYTES PERCENT AUTO 10 % (4-13); Mean Corpuscular HGB Conc 34.7 g/dL (31.5-36.5); Mean Corpuscular Volume 109 fL (80-100); Mean Platelet Volume 9.7 fL (9.1-12.4); NEUTROPHILS ABSOLUTE AUTO 8.71 K/mm3 (1.96-9.15); NEUTROPHILS PERCENT AUTO 72 % (41-73); Platelet Count 252 K/mm3 (150-400); RDW Coefficient Variation 12.6 % (11.7-14.2); RDW Standard Deviation 50.1 fL (35.1-46.3); Red Blood Cell Count 3.08 M/mm3 (4.30-5.90); White Blood Cell Count 12.02 K/mm3 (4.00-11.30)
[2022-06-03 15:06] LABS: Albumin, Blood 3.4 g/dL (3.4-5.0); Albumin/Globulin Ratio 0.9 (0.8-1.8); Bilirubin, Total 0.7 mg/dL (0.1-1.0); Bun/Creatinine Ratio 10.6 (12.0-20.0); Calcium, Blood 9.6 mg/dL (8.5-10.1); Creatinine, Blood 0.85 mg/dL (0.60-1.20); Globulin, Blood 3.9 g/dL (2.2-4.0); Magnesium, Blood 1.6 mg/dL (1.6-2.4); Potassium, Blood 3.8 mmol/L (3.5-5.5); Total Protein, Blood 7.3 g/dL (6.4-8.2)
[2022-06-03] MEDS ORDERED: PAXLOVID 2X1501 EACH PO (18:27)
[2022-06-03] MEDS ORDERED: NITR.4SL SL (18:27)
== END 2022-06-03 18:39 | disposition home or self-care (01) ==
LOC: ER 13:38
PROVIDERS: Emergency Medicine
DX: R07.9 Chest pain, unspecified (principal); J44.9 Chronic obstructive pulmonary disease, unspecified; I10 Essential (primary) hypertension; E78.5 Hyperlipidemia, unspecified; R79.89 Other specified abnormal findings of blood chemistry; Z88.5 Allergy status to narcotic agent; Z88.8 Allergy status to other drugs, medicaments and biological substances; Z79.82 Long term (current) use of aspirin; Z79.899 Other long term (current) drug therapy; Z79.52 Long term (current) use of systemic steroids; Z95.0 Presence of cardiac pacemaker; Z88.0 Allergy status to penicillin; Z53.29 Procedure and treatment not carried out because of patient's decision for other reasons
CPT/HCPCS: 71045; 80053; 83735; 83880; 84484; 85025; 93005; 93010

== ENCOUNTER 2022-10-21 15:23 | Emergency (ER) | payer OTHER ==
[~2022-10-21] VITALS: Ht 177.8 cm; Wt 120.2 kg
[~2022-10-21 15:23] MED LIST changes: +PAXLOVID 2X1501 EACH PO
[2022-10-21 16:07] LABS: BASOPHILS ABSOLUTE AUTO 0.03 K/mm3 (0.00-0.23); BASOPHILS PERCENT AUTO 0 % (0-2); EOSINOPHILS ABSOLUTE AUTO 0.07 K/mm3 (0.00-0.68); EOSINOPHILS PERCENT AUTO 1 % (0-6); Hematocrit 26.7 % (37.0-53.0); Hemoglobin 9.1 g/dL (13.5-17.5); IMMATURE GRAN ABSOLUTE AUTO 0.07 K/mm3 (0.00-0.10); IMMATURE GRAN PERCENT AUTO 1 % (0-1); LYMPHOCYTES ABSOLUTE AUTO 1.08 K/mm3 (0.84-5.20); LYMPHOCYTES PERCENT AUTO 13 % (21-46); MONOCYTES ABSOLUTE AUTO 1.06 K/mm3 (0.16-1.47); MONOCYTES PERCENT AUTO 13 % (4-13); Mean Corpuscular HGB 34.9 pg (26.0-34.0); Mean Corpuscular HGB Conc 34.1 g/dL (31.5-36.5); Mean Corpuscular Volume 102 fL (80-100); Mean Platelet Volume 9.4 fL (9.1-12.4); NEUTROPHILS ABSOLUTE AUTO 5.76 K/mm3 (1.96-9.15); NEUTROPHILS PERCENT AUTO 71 % (41-73); Platelet Count 254 K/mm3 (150-400); RDW Coefficient Variation 13.6 % (11.7-14.2); RDW Standard Deviation 51.1 fL (35.1-46.3); Red Blood Cell Count 2.61 M/mm3 (4.30-5.90); White Blood Cell Count 8.07 K/mm3 (4.00-11.30)
[2022-10-21 16:20] LABS: Albumin, Blood 3.5 g/dL (3.4-5.0); Bilirubin, Total 0.8 mg/dL (0.1-1.0); Bun/Creatinine Ratio 23.3 (12.0-20.0); Calcium, Blood 9.2 mg/dL (8.5-10.1); Creatinine, Blood 1.33 mg/dL (0.60-1.20); Globulin, Blood 3.4 g/dL (2.2-4.0); Potassium, Blood 4.4 mmol/L (3.5-5.5); Total Protein, Blood 6.9 g/dL (6.4-8.2)
== END 2022-10-21 19:40 | disposition home or self-care (01) ==
LOC: ER 15:23
PROVIDERS: Emergency Medicine
DX: J81.1 Chronic pulmonary edema (principal); I11.0 Hypertensive heart disease with heart failure; I50.9 Heart failure, unspecified; J44.9 Chronic obstructive pulmonary disease, unspecified; E78.5 Hyperlipidemia, unspecified; Z88.0 Allergy status to penicillin; Z88.5 Allergy status to narcotic agent; Z88.8 Allergy status to other drugs, medicaments and biological substances; Z79.82 Long term (current) use of aspirin; Z79.899 Other long term (current) drug therapy; Z79.52 Long term (current) use of systemic steroids; Z95.0 Presence of cardiac pacemaker
CPT/HCPCS: 71045; 80053; 83880; 84484; 85025; 93005; 93010; 99285-25

== ENCOUNTER 2022-12-21 14:07 | Inpatient (IN) | payer OTHER ==
[~2022-12-21] VITALS: Ht 177.8 cm; Wt 115.4 kg
[2022-12-21] MEDS ORDERED: FAMO40 PO (14:27)
[2022-12-21 14:28] LABS: BASOPHILS ABSOLUTE AUTO 0.02 K/mm3 (0.00-0.23); BASOPHILS PERCENT AUTO 0 % (0-2); EOSINOPHILS PERCENT AUTO 2 % (0-6); IMMATURE GRAN ABSOLUTE AUTO 0.08 K/mm3 (0.00-0.10); IMMATURE GRAN PERCENT AUTO 1 % (0-1); LYMPHOCYTES ABSOLUTE AUTO 1.28 K/mm3 (0.84-5.20); LYMPHOCYTES PERCENT AUTO 13 % (21-46); MONOCYTES ABSOLUTE AUTO 0.93 K/mm3 (0.16-1.47); MONOCYTES PERCENT AUTO 9 % (4-13); Mean Corpuscular HGB 29.7 pg (26.0-34.0); Mean Corpuscular HGB Conc 30.7 g/dL (31.5-36.5); Mean Corpuscular Volume 97 fL (80-100); Mean Platelet Volume 9.8 fL (9.1-12.4); NEUTROPHILS ABSOLUTE AUTO 7.72 K/mm3 (1.96-9.15); NEUTROPHILS PERCENT AUTO 75 % (41-73); Platelet Count 326 K/mm3 (150-400); RDW Coefficient Variation 16.6 % (11.7-14.2); RDW Standard Deviation 57.8 fL (35.1-46.3); Red Blood Cell Count 1.85 M/mm3 (4.30-5.90); White Blood Cell Count 10.23 K/mm3 (4.00-11.30)
[2022-12-21] MEDS ORDERED: FURO40 PO (14:28)
[2022-12-21] MEDS ORDERED: MOME220I (14:29)
[2022-12-21] MEDS ORDERED: AMLO10 PO (14:30)
[2022-12-21 14:33] LABS: Hematocrit 17.9 % (37.0-53.0); Hemoglobin 5.5 g/dL (13.5-17.5)
[2022-12-21 14:48] LABS: Albumin, Blood 3.1 g/dL (3.4-5.0); Bilirubin, Total 0.6 mg/dL (0.1-1.0); Bun/Creatinine Ratio 19.5 (12.0-20.0); Calcium, Blood 9.6 mg/dL (8.5-10.1); Creatinine, Blood 1.64 mg/dL (0.60-1.20); Globulin, Blood 3.2 g/dL (2.2-4.0); Total Protein, Blood 6.3 g/dL (6.4-8.2)
[2022-12-21 21:20] LABS: International Normalized Ratio 1.07; Prothrombin Time Results 11.2 Sec (9.7-11.5)
--- NOTE | 2022-12-21 22:19 | NUR ---
ARRIVAL TO [facility] PT ARRIVED TO [facility] AT APPROXIMATELY 2000. PT TRANSFERED FROM [facility] TO HOSPITAL BED WITH 1 PERSON ASSIST STAND PIVOT. PT A&Ox4, ORIENTED TO CALL LIGHT/UNIT. VSS, SpO2> 92% RA, REPORTS MILD SOB WITH ACTIVITY. BP STABLE, PACED 90's, DENIES CP/PRESSURE. REPORTS MILD DIZZINESS, STATES THAT IT IS IMPROVING. PT REPORTS BEING CONTINENT OF URINE AND BOWEL, INSTRUCTED PT TO CALL FOR HELP TO USE BATHROOM. NO S/S OF BLEEDING AT THIS TIME. BLOOD PRODUCTS INFUSING, WNL. PT RESTING COMFORTABLY, WATCHING TV. BED IN LOWEST POSITION, CALL LIGHT IN REACH.
[2022-12-22 02:13] LABS: Albumin, Blood 2.9 g/dL (3.4-5.0); Albumin/Globulin Ratio 0.9 (0.8-1.8); Bilirubin, Total 2.9 mg/dL (0.1-1.0); Bun/Creatinine Ratio 21.3 (12.0-20.0); Creatinine, Blood 1.41 mg/dL (0.60-1.20); Globulin, Blood 3.4 g/dL (2.2-4.0); Potassium, Blood 4.2 mmol/L (3.5-5.5); Total Protein, Blood 6.3 g/dL (6.4-8.2)
[2022-12-22 02:28] LABS: BASOPHILS ABSOLUTE AUTO 0.01 K/mm3 (0.00-0.23); BASOPHILS PERCENT AUTO 0 % (0-2); EOSINOPHILS PERCENT AUTO 0 % (0-6); Hematocrit 22.6 % (37.0-53.0); Hemoglobin 7.4 g/dL (13.5-17.5); IMMATURE GRAN ABSOLUTE AUTO 0.08 K/mm3 (0.00-0.10); IMMATURE GRAN PERCENT AUTO 1 % (0-1); LYMPHOCYTES ABSOLUTE AUTO 0.69 K/mm3 (0.84-5.20); LYMPHOCYTES PERCENT AUTO 9 % (21-46); MONOCYTES ABSOLUTE AUTO 0.12 K/mm3 (0.16-1.47); MONOCYTES PERCENT AUTO 2 % (4-13); Mean Corpuscular HGB 29.6 pg (26.0-34.0); Mean Corpuscular HGB Conc 32.7 g/dL (31.5-36.5); Mean Platelet Volume 9.8 fL (9.1-12.4); NEUTROPHILS ABSOLUTE AUTO 7.04 K/mm3 (1.96-9.15); NEUTROPHILS PERCENT AUTO 89 % (41-73); Platelet Count 318 K/mm3 (150-400); RDW Coefficient Variation 17.3 % (11.7-14.2); RDW Standard Deviation 56.7 fL (35.1-46.3); White Blood Cell Count 7.94 K/mm3 (4.00-11.30)
[2022-12-22 02:34] LABS: Mean Corpuscular Volume 90 fL (80-100)
--- NOTE | 2022-12-22 05:00 | NUR ---
SHIFT SUMMARY SEE PREVIOUS NOTE. NO ACUTE CHANGES. VSS, SpO2> 92% RA, DENIES SOB. BP STABLE, PACED 90'S, DENIES CP/PRESSURE. NO S/S OF BLEEDING. HGB STABLE. PT A&Ox4, CALLS AND COMMUNICATES NEEDS APPROPRIATELY. 1 ASSIST WITH FWW TO BSC, CONTINENT OF URINE AND BOWEL. PT DENIES PAIN. PT NPO SINCE ARRIVAL. NO OTHER EVENTS, WILL REPORT TO ONCOMING RN.
[2022-12-22 07:25] LABS: Hematocrit 21.2 % (37.0-53.0); Hemoglobin 7.2 g/dL (13.5-17.5)
--- NOTE | 2022-12-22 09:49 | NUR ---
"Spiritual Care | Pt. Request Pt. is awake in bed and welcomes my visit. Pt. is pleasant but unsettled by the unexpected passing of his son in due to cancer. Listened with empathy and a calming presence. Facilitated a family life review and established rapport. Prayed with Pt. Pt. verbalized gratitude for the spiirtual care visit, and welcomed me to return."
[2022-12-22 14:43] LABS: Hematocrit 21.7 % (37.0-53.0); Hemoglobin 7.2 g/dL (13.5-17.5)
--- NOTE | 2022-12-22 17:58 | NUR ---
SHIFT SUMMARY ALERT AND ORIENTED, SPOUSE PRESENT IN AM AND AFTERNOON. GI CONSULTED FOR GI BLEED. ORDERS FOR CLEAR LIQUIDS NOW, NPO AFTER BREAKFAST 12/23/22, AND PLAN FOR EGD IN AFTERNOON 12/23/22. SBA UP TO BSC. VOIDING WELL, OCC SOFT DARK BROWN BOWEL MOVEMENTS. VSS, RA. BLE DRESSINGS FOR LYMPHEDEMA IN PLACE. [facility] BY [facility]22 AND TO REMAIN IN PLACE FOR 2 WEEKS PER PATIENT. PATIENTS STATES NOT TO REMOVE, APPEARS TO BE GAUZE ROLL, COBAN, AND KERLEX NETTING. HGB STABLE AT 7.2 AFTER 2 UNITS OF PRBC DURING POLICE GUARD. TELE PACED IN 90S.
[2022-12-23 02:18] LABS: BASOPHILS ABSOLUTE AUTO 0.03 K/mm3 (0.00-0.23); BASOPHILS PERCENT AUTO 0 % (0-2); EOSINOPHILS ABSOLUTE AUTO 0.15 K/mm3 (0.00-0.68); EOSINOPHILS PERCENT AUTO 2 % (0-6); Hematocrit 22.4 % (37.0-53.0); Hemoglobin 7.3 g/dL (13.5-17.5); IMMATURE GRAN ABSOLUTE AUTO 0.06 K/mm3 (0.00-0.10); IMMATURE GRAN PERCENT AUTO 1 % (0-1); LYMPHOCYTES ABSOLUTE AUTO 2.05 K/mm3 (0.84-5.20); LYMPHOCYTES PERCENT AUTO 25 % (21-46); MONOCYTES ABSOLUTE AUTO 0.89 K/mm3 (0.16-1.47); MONOCYTES PERCENT AUTO 11 % (4-13); Mean Corpuscular HGB 29.9 pg (26.0-34.0); Mean Corpuscular HGB Conc 32.6 g/dL (31.5-36.5); Mean Corpuscular Volume 92 fL (80-100); Mean Platelet Volume 9.3 fL (9.1-12.4); NEUTROPHILS ABSOLUTE AUTO 5.12 K/mm3 (1.96-9.15); NEUTROPHILS PERCENT AUTO 62 % (41-73); Platelet Count 309 K/mm3 (150-400); RDW Coefficient Variation 17.5 % (11.7-14.2); RDW Standard Deviation 58.6 fL (35.1-46.3); RETICULOCYTE ABSOLUTE 0.0722 M/mm3 (0.0200-0.1100); RETICULOCYTE COUNT PERCENT 2.96 % (0.50-2.50); Red Blood Cell Count 2.44 M/mm3 (4.30-5.90)
[2022-12-23 03:10] LABS: Albumin, Blood 2.9 g/dL (3.4-5.0); Albumin/Globulin Ratio 0.9 (0.8-1.8); Bilirubin, Total 1.5 mg/dL (0.1-1.0); Bun/Creatinine Ratio 21.5 (12.0-20.0); Calcium, Blood 9.1 mg/dL (8.5-10.1); Creatinine, Blood 1.07 mg/dL (0.60-1.20); Globulin, Blood 3.2 g/dL (2.2-4.0); Percent Saturation 63.1 % (20.0-50.0); Potassium, Blood 4.1 mmol/L (3.5-5.5); Total Protein, Blood 6.1 g/dL (6.4-8.2)
--- NOTE | 2022-12-23 04:00 | NUR ---
PT REFUSED 0400 VITALS.
--- NOTE | 2022-12-23 04:35 | NUR ---
SHIFT SUMMARY VSS, SpO2> 92% RA, DENIES SOB. BP STABLE, PACED 90'S, DENIES CP/PRESSURE. NO S/S OF BLEEDING. HGB STABLE. PT A&Ox4, CALLS AND COMMUNICATES NEEDS APPROPRIATELY. 1 ASSIST WITH FWW TO BSC, CONTINENT OF URINE AND BOWEL. PT DENIES PAIN. CLEAR LIQUID DIET, NOTHING RED THROUGHOUT SHIFT, TO BE NPO AFTER BREAKFAST. NO OTHER EVENTS, WILL REPORT TO ONCOMING RN.
--- NOTE | 2022-12-23 11:03 | NUR ---
CARE ASSUMPTION This RN assumed care at 0700 VSS. Spo2 >90% on RA. Tele paced. Patient is alert and oriented x4. Patient reports some anxiety with upcoming procedure. This RN sat and listened to the patient and used therapeutic communication. This seemed to help ease patients anxiety. Patient reports no pain. Patient reports no shortness of breath. Patient reports no chest pain/pressure. See shift assessment for further detials. Patient has dressing on bilateral lower legs that he sees at the [facility] biweekly for dressing changes, and patient stated he did not want it removed. Md Steel in to see patient and patient and updated them on plan of care and procedure. Patient and patient verbalized understanding. Plan of care is up to date. Physical therapy in to see patient. Patient AM care done. See ADLs. Patient call light is within reach and bed in lowest position.
--- NOTE | 2022-12-23 12:55 | NUR ---
PATIENT LEFT FOR PROCEDURE patient left for procedure at 1253 in no distress. patient left with patient and RN.
--- NOTE | 2022-12-23 13:20 | NUR ---
AUSCULTATED INSP. WHEEZING/RHONCHI TO POSTERIOR RUL, DIMINISHED IN BASES BILAT. PATIENT DENIES SOB. RESP EVEN AND UNLABORED.
--- NOTE | 2022-12-23 14:34 | NUR ---
12/23/22 1434 Mattie Marrero 1425- 3ML 4% LIDOCAINE ATOMIZED TO BACK OF THROAT PER DR SCHWARTZ ORDER. MONITOR INTACT WITH CONTINUOUS PULSE OXIMETRY AND INTERMITTENT BP.
--- NOTE | 2022-12-23 16:42 | NUR ---
RETURNED FROM PROCEDURE Patient returned from procedure at 1520. patient vital signs are stable and patient is in no distress. at bedside. call light within reach and bed in lowest position.
--- NOTE | 2022-12-23 17:34 | NUR ---
SHIFT SUMMARY Patient neuro remains unchaged. Vital signs stable. No acute changes during this shift. Call light within reach and bed in lowest position. Will give report to oncoming shift.
[2022-12-24 04:29] LABS: BASOPHILS ABSOLUTE AUTO 0.03 K/mm3 (0.00-0.23); BASOPHILS PERCENT AUTO 0 % (0-2); EOSINOPHILS ABSOLUTE AUTO 0.22 K/mm3 (0.00-0.68); EOSINOPHILS PERCENT AUTO 3 % (0-6); Hematocrit 23.3 % (37.0-53.0); Hemoglobin 7.4 g/dL (13.5-17.5); IMMATURE GRAN ABSOLUTE AUTO 0.06 K/mm3 (0.00-0.10); IMMATURE GRAN PERCENT AUTO 1 % (0-1); LYMPHOCYTES ABSOLUTE AUTO 1.88 K/mm3 (0.84-5.20); LYMPHOCYTES PERCENT AUTO 23 % (21-46); MONOCYTES ABSOLUTE AUTO 1.14 K/mm3 (0.16-1.47); MONOCYTES PERCENT AUTO 14 % (4-13); Mean Corpuscular HGB 29.6 pg (26.0-34.0); Mean Corpuscular HGB Conc 31.8 g/dL (31.5-36.5); Mean Corpuscular Volume 93 fL (80-100); Mean Platelet Volume 9.4 fL (9.1-12.4); NEUTROPHILS ABSOLUTE AUTO 4.78 K/mm3 (1.96-9.15); NEUTROPHILS PERCENT AUTO 59 % (41-73); Platelet Count 297 K/mm3 (150-400); RDW Coefficient Variation 17.1 % (11.7-14.2); RDW Standard Deviation 57.1 fL (35.1-46.3); White Blood Cell Count 8.11 K/mm3 (4.00-11.30)
[2022-12-24 04:46] LABS: Albumin, Blood 2.7 g/dL (3.4-5.0); Albumin/Globulin Ratio 0.8 (0.8-1.8); Bilirubin, Total 1.1 mg/dL (0.1-1.0); Calcium, Blood 8.6 mg/dL (8.5-10.1); Creatinine, Blood 1.19 mg/dL (0.60-1.20); Globulin, Blood 3.2 g/dL (2.2-4.0); Potassium, Blood 4.2 mmol/L (3.5-5.5); Total Protein, Blood 5.9 g/dL (6.4-8.2)
--- NOTE | 2022-12-24 05:40 | NUR ---
SHIFT SUMMARY PATIENT IS ALERT AND ORIENTED X4. PATIENT ABLE TO STAND STEADY WITH MINIMAL ASSIST AND A FRONT WHEELED WALKER. SBP IN THE LOW 100'S BUT REMAINS STABLE. SPO2 >92% ON ROOM AIR. HAD NO COMPLAINTS OF PAIN OR SHORTNESS OF BREATH. PATIENT VENTRICULAR PACED IN THE 90'S ON TELE. NO BOWEL MOVEMENT OVERNIGHT. NO ACUTE ISSUES NOTED OVERNIGHT. CALL LIGHT WITHIN REACH.
--- NOTE | 2022-12-24 07:12 | NUR ---
ASSUMED CARE: PT AWAKE, TALKING TO STAFF. ON RA, PACED AT 60 ON TELE. DENIES NEEDS OR CONCERNS AT THIS TIME.
[2022-12-24] MEDS ORDERED: PANT40 PO (12:32)
--- NOTE | 2022-12-24 14:18 | NUR ---
IV DC'D WNL. PT GIVEN INSTRUCTIONS REGARDING NEW MEDICATIONS AND FOLLOW UP APPOINTMENTS. DENIED FURTHER NEEDS OR CONCERNS. ESCORTED OUT VIA WHEEL CHAIR BY HOSPITAL STAFF.
== END 2022-12-24 13:30 | disposition home or self-care (01) | DRG 811 ==
LOC: ER 14:07 → PCU 19:34
PROVIDERS: Emergency Medicine; Family Medicine; Student in an Organized Health Care Education/Training Program; ADMIT Internal Medicine
PROC: 30233N1 Transfusion of Nonautologous Red Blood Cells into Peripheral Vein, Percutaneous Approach (ICD-10-PCS; 2022-12-21)
PROC: 0W3P8ZZ Control Bleeding in Gastrointestinal Tract, Via Natural or Artificial Opening Endoscopic (ICD-10-PCS; principal; 2022-12-23 14:00)
PROC: 0DB98ZX Excision of Duodenum, Via Natural or Artificial Opening Endoscopic, Diagnostic (ICD-10-PCS; 2022-12-23 14:00)
DX: D62 Acute posthemorrhagic anemia (principal); K25.4 Chronic or unspecified gastric ulcer with hemorrhage; K31.811 Angiodysplasia of stomach and duodenum with bleeding; I50.32 Chronic diastolic (congestive) heart failure; N17.9 Acute kidney failure, unspecified; J44.9 Chronic obstructive pulmonary disease, unspecified; I11.0 Hypertensive heart disease with heart failure; E78.5 Hyperlipidemia, unspecified; I73.9 Peripheral vascular disease, unspecified; F10.10 Alcohol abuse, uncomplicated; G62.9 Polyneuropathy, unspecified; I87.2 Venous insufficiency (chronic) (peripheral); K31.7 Polyp of stomach and duodenum; G47.33 Obstructive sleep apnea (adult) (pediatric); Z85.46 Personal history of malignant neoplasm of prostate; Z87.19 Personal history of other diseases of the digestive system; Z90.49 Acquired absence of other specified parts of digestive tract; Z95.828 Presence of other vascular implants and grafts; Z99.81 Dependence on supplemental oxygen; Z98.890 Other specified postprocedural states; Z95.0 Presence of cardiac pacemaker; Z79.02 Long term (current) use of antithrombotics/antiplatelets; Z79.899 Other long term (current) drug therapy; Z88.1 Allergy status to other antibiotic agents; Z88.5 Allergy status to narcotic agent; Z88.8 Allergy status to other drugs, medicaments and biological substances; Z79.51 Long term (current) use of inhaled steroids; Z79.01 Long term (current) use of anticoagulants; Z87.891 Personal history of nicotine dependence
CPT/HCPCS: 36415; 36430; 80053; 82728; 83540; 83550; 84484; 85014; 85018; 85025; 85045; 85610; 86850; 86900; 86901; 86923; 88305; 93005; 93010; 94640; 94660; 94760; 94762; 96374; 96375; 97110; 97116; 97140; 97162; 99285-25; A9270; C9113; J2001; J2405; J2704; J2930; J7030; J7120; P9016

== ENCOUNTER 2022-12-28 18:12 | Inpatient (IN) | payer OTHER ==
[~2022-12-28] VITALS: Ht 177.8 cm; Wt 108.9 kg
[~2022-12-28 18:12] MED LIST changes: +AMLO10 PO; +FAMO40 PO; +FURO40 PO; +MOME220I
[2022-12-28 20:00] LABS: BASOPHILS ABSOLUTE AUTO 0.03 K/mm3 (0.00-0.23); BASOPHILS PERCENT AUTO 0 % (0-2); EOSINOPHILS ABSOLUTE AUTO 0.26 K/mm3 (0.00-0.68); EOSINOPHILS PERCENT AUTO 4 % (0-6); Hematocrit 24.3 % (37.0-53.0); Hemoglobin 7.6 g/dL (13.5-17.5); IMMATURE GRAN ABSOLUTE AUTO 0.03 K/mm3 (0.00-0.10); IMMATURE GRAN PERCENT AUTO 0 % (0-1); LYMPHOCYTES ABSOLUTE AUTO 1.78 K/mm3 (0.84-5.20); LYMPHOCYTES PERCENT AUTO 24 % (21-46); MONOCYTES ABSOLUTE AUTO 1.08 K/mm3 (0.16-1.47); MONOCYTES PERCENT AUTO 15 % (4-13); Mean Corpuscular HGB 29.5 pg (26.0-34.0); Mean Corpuscular HGB Conc 31.3 g/dL (31.5-36.5); Mean Corpuscular Volume 94 fL (80-100); Mean Platelet Volume 9.7 fL (9.1-12.4); NEUTROPHILS ABSOLUTE AUTO 4.15 K/mm3 (1.96-9.15); NEUTROPHILS PERCENT AUTO 57 % (41-73); Platelet Count 251 K/mm3 (150-400); RDW Coefficient Variation 17.5 % (11.7-14.2); RDW Standard Deviation 56.9 fL (35.1-46.3); Red Blood Cell Count 2.58 M/mm3 (4.30-5.90); White Blood Cell Count 7.33 K/mm3 (4.00-11.30)
[2022-12-28 20:14] LABS: International Normalized Ratio 1.09; Prothrombin Time Results 11.4 Sec (9.7-11.5)
[2022-12-28 20:28] LABS: Albumin/Globulin Ratio 0.9 (0.8-1.8); Bilirubin, Total 0.9 mg/dL (0.1-1.0); Bun/Creatinine Ratio 13.1 (12.0-20.0); Calcium, Blood 8.6 mg/dL (8.5-10.1); Creatinine, Blood 1.45 mg/dL (0.60-1.20); Globulin, Blood 3.2 g/dL (2.2-4.0); Potassium, Blood 3.8 mmol/L (3.5-5.5); Total Protein, Blood 6.2 g/dL (6.4-8.2)
--- NOTE | 2022-12-29 05:14 | NUR ---
PATIENT ALERT AND ORIENTED, ROOM AIR, PACED ON TELE, USES WALKER ONE ASSIST, CONTINENT, LAC W/ NS @ 150 CC/HR, CARDIAC DIET. AMBULATION TEST IN ED REVEALED BP 70/40.
[2022-12-29 06:50] LABS: Hematocrit 22.4 % (37.0-53.0); Hemoglobin 7.1 g/dL (13.5-17.5)
[2022-12-29 07:11] LABS: Albumin, Blood 2.6 g/dL (3.4-5.0); Albumin/Globulin Ratio 0.8 (0.8-1.8); Bilirubin, Total 0.9 mg/dL (0.1-1.0); Calcium, Blood 8.3 mg/dL (8.5-10.1); Creatinine, Blood 1.23 mg/dL (0.60-1.20); Globulin, Blood 3.2 g/dL (2.2-4.0); Potassium, Blood 3.5 mmol/L (3.5-5.5); Total Protein, Blood 5.8 g/dL (6.4-8.2)
[2022-12-29 09:20] LABS: Stool Occult Blood Guaiac 1 Pos (Neg)
[2022-12-29 13:49] LABS: Hematocrit 22.8 % (37.0-53.0); Hemoglobin 7.3 g/dL (13.5-17.5)
--- NOTE | 2022-12-29 17:37 | NUR ---
SHIFT SUMMARY PT A&OX4 AND IN PLEASENT MOOD T/O SHIFT. FAMILY IN TO SEE PT T/O VISITING HOURS. CALL LIGHT W/IN REACH. TOLERATING PO INTAKE. POSITIVE ORTHOSTATIC BP REPORTED TO DR-500 FLUID RUNNING @ THIS TIME. HYPOTENSION NOTED T/O SHIFT. 1X FWW.CONT. TO MONITOR HGB.
[2022-12-29 21:09] LABS: Hematocrit 23.2 % (37.0-53.0); Hemoglobin 7.3 g/dL (13.5-17.5)
--- NOTE | 2022-12-30 04:10 | NUR ---
SHIFT MOSTLY UNREMARKABLE. PT TOOK 2100 MEDICATIONS WITHOUT DIFFICULTY AND HAS SLEPT THROUGH MUCH OF REMAINDER OF SHIFT. 1 PERSON ASSIST TO BEDSIDE COMMODE. ORDERED MELATONIN 5 MG TO ASSIST WITH GETTING TO SLEEP. PT DENIES PAIN/DISCOMFORT. CALL LIGHT LEFT WITHIN REACH.
[2022-12-30 06:52] LABS: Hematocrit 21.3 % (37.0-53.0); Hemoglobin 6.8 g/dL (13.5-17.5); Mean Corpuscular HGB 29.7 pg (26.0-34.0); Mean Corpuscular HGB Conc 31.9 g/dL (31.5-36.5); Mean Corpuscular Volume 93 fL (80-100); Mean Platelet Volume 9.7 fL (9.1-12.4); Platelet Count 199 K/mm3 (150-400); RDW Coefficient Variation 17.1 % (11.7-14.2); RDW Standard Deviation 56.2 fL (35.1-46.3); Red Blood Cell Count 2.29 M/mm3 (4.30-5.90); White Blood Cell Count 5.16 K/mm3 (4.00-11.30)
[2022-12-30 07:08] LABS: Albumin, Blood 2.6 g/dL (3.4-5.0); Albumin/Globulin Ratio 0.8 (0.8-1.8); Bun/Creatinine Ratio 11.5 (12.0-20.0); Calcium, Blood 8.5 mg/dL (8.5-10.1); Creatinine, Blood 1.13 mg/dL (0.60-1.20); Globulin, Blood 3.1 g/dL (2.2-4.0); Potassium, Blood 3.6 mmol/L (3.5-5.5); Total Protein, Blood 5.7 g/dL (6.4-8.2)
--- NOTE | 2022-12-30 09:03 | NUR ---
NS @ 100 CONTINUOUS Clarified NS @ 100 continuous order written on 12/[address] Hoover to see whether or not to continue. T.O. to continue based on sbp 90's and symptomatic dizziness. NS changed from 500 mL bag to [address] Hoover also about midodrine being scheduled with hold parameters which is inconsistent with Progress Note info. Order to give per EMAR, not per Progress Note.
[2022-12-30 14:33] LABS: Hematocrit 24.8 % (37.0-53.0)
--- NOTE | 2022-12-30 17:36 | NUR ---
BP 139/[address] GOEL WHETHER OR NOT TO CONTINUE IV FLUIDS. T.O. TO DC FLUIDS BASED ON ABOVE BP. ORDER UPDATED.
--- NOTE | 2022-12-30 18:54 | NUR ---
Discharge Summary A/Ox4, pleasant/cooperative. 1p SBA with FWW to bathroom. Dizziness subsided per patient after NS and 1 PRBC infused. No complaints of pain. Stools are a grayish greenish color. D/C to home. Reviewed d/c papers with patient, questions answered to his satisfaction. Copy given. No new meds. Escorted by PATIENT CARE via w/c. Belongings sent home.
== END 2022-12-30 19:15 | disposition home or self-care (01) | DRG 812 ==
LOC: ER 18:12 → MEDS 18:13
PROVIDERS: Anesthesiology; Emergency Medicine; Family Medicine; Student in an Organized Health Care Education/Training Program; ADMIT Internal Medicine
PROC: 30233N1 Transfusion of Nonautologous Red Blood Cells into Peripheral Vein, Percutaneous Approach (ICD-10-PCS; principal; 2022-12-30)
PROC: 5A09357 Assistance with Respiratory Ventilation, Less than 24 Consecutive Hours, Continuous Positive Airway Pressure (ICD-10-PCS; 2022-12-30)
DX: D50.0 Iron deficiency anemia secondary to blood loss (chronic) (principal); N17.9 Acute kidney failure, unspecified; I50.30 Unspecified diastolic (congestive) heart failure; J44.9 Chronic obstructive pulmonary disease, unspecified; I11.0 Hypertensive heart disease with heart failure; I95.9 Hypotension, unspecified; G47.33 Obstructive sleep apnea (adult) (pediatric); I73.9 Peripheral vascular disease, unspecified; E78.5 Hyperlipidemia, unspecified; G62.9 Polyneuropathy, unspecified; I87.2 Venous insufficiency (chronic) (peripheral); F10.10 Alcohol abuse, uncomplicated; Z99.81 Dependence on supplemental oxygen; Z98.890 Other specified postprocedural states; Z95.0 Presence of cardiac pacemaker; Z90.49 Acquired absence of other specified parts of digestive tract; Z87.19 Personal history of other diseases of the digestive system; Z95.828 Presence of other vascular implants and grafts; Z87.891 Personal history of nicotine dependence; Z86.79 Personal history of other diseases of the circulatory system; Z85.46 Personal history of malignant neoplasm of prostate; Z88.0 Allergy status to penicillin; Z88.5 Allergy status to narcotic agent; Z88.8 Allergy status to other drugs, medicaments and biological substances; Z88.1 Allergy status to other antibiotic agents; Z79.899 Other long term (current) drug therapy; Z79.51 Long term (current) use of inhaled steroids; Z79.02 Long term (current) use of antithrombotics/antiplatelets; Z79.01 Long term (current) use of anticoagulants
CPT/HCPCS: 36415; 36430; 71046; 80053; 82270; 82947; 84484; 85014; 85018; 85025; 85027; 85610; 86850; 86900; 86901; 86923; 93005; 93010; 94640; 94664; 94760; 94762; 96360; 96361; 97110; 97162; 99285-25; A9270; G0378; J7030; J7040; J7050; P9016

== ENCOUNTER 2023-01-09 13:32 | Inpatient (IN) | payer OTHER ==
[~2023-01-09] VITALS: Ht 180.3 cm; Wt 113.2 kg
[~2023-01-09 13:32] MED LIST changes: -FISH OIL CONC1000 M2 PO; -MOME220I; +MOME220I INH; +OMEGA-3 FISH O1 EAC6 PO
[2023-01-09 14:11] LABS: BASOPHILS ABSOLUTE AUTO 0.02 K/mm3 (0.00-0.23); BASOPHILS PERCENT AUTO 0 % (0-2); EOSINOPHILS ABSOLUTE AUTO 0.24 K/mm3 (0.00-0.68); EOSINOPHILS PERCENT AUTO 4 % (0-6); Hematocrit 26.4 % (37.0-53.0); Hemoglobin 8.4 g/dL (13.5-17.5); IMMATURE GRAN ABSOLUTE AUTO 0.02 K/mm3 (0.00-0.10); IMMATURE GRAN PERCENT AUTO 0 % (0-1); LYMPHOCYTES ABSOLUTE AUTO 1.41 K/mm3 (0.84-5.20); LYMPHOCYTES PERCENT AUTO 21 % (21-46); MONOCYTES PERCENT AUTO 11 % (4-13); Mean Corpuscular HGB 29.6 pg (26.0-34.0); Mean Corpuscular HGB Conc 31.8 g/dL (31.5-36.5); Mean Corpuscular Volume 93 fL (80-100); Mean Platelet Volume 10.1 fL (9.1-12.4); NEUTROPHILS ABSOLUTE AUTO 4.22 K/mm3 (1.96-9.15); NEUTROPHILS PERCENT AUTO 64 % (41-73); Platelet Count 210 K/mm3 (150-400); RDW Coefficient Variation 17.5 % (11.7-14.2); RDW Standard Deviation 59.2 fL (35.1-46.3); Red Blood Cell Count 2.84 M/mm3 (4.30-5.90); White Blood Cell Count 6.61 K/mm3 (4.00-11.30)
[2023-01-09 14:56] LABS: Albumin/Globulin Ratio 0.9 (0.8-1.8); Bilirubin, Total 0.6 mg/dL (0.1-1.0); Bun/Creatinine Ratio 11.2 (12.0-20.0); Calcium, Blood 8.5 mg/dL (8.5-10.1); Creatinine, Blood 1.07 mg/dL (0.60-1.20); Globulin, Blood 3.4 g/dL (2.2-4.0); Potassium, Blood 2.7 mmol/L (3.5-5.5); Total Protein, Blood 6.4 g/dL (6.4-8.2)
[2023-01-09] MEDS ORDERED: STIOLTO RESPIMAT4 G1 INH (21:04)
[2023-01-09 21:32] VITALS: BP 118/62
--- NOTE | 2023-01-10 00:51 | NUR ---
ADMIT NOTE 82 YR OLD MALE ADMITTED TO FLOOR FROM THE ED WITH DX OF ELEVATED TROPONINS. REPORT WSA PT WAS SOB EARLIER IN THE DAY (YESTERDAY), AND WAS FOUND SLUMPED OVER WHEN EMS ARRIVED. ALERT AND ORIENTED X 4. VSS. ORIENTED TO USE OF CALL LIGHT AND CALL LIGHT IN REACH. BED CHANGED OUT. NOTE ELEVATED TROPS, FROM 132 TO 188. CALL PLACED TO MD SALVATORE ORDERED HEPARIN DRIP AND "CARDIAC WORK UP TOMORROW".
[2023-01-10 01:37] LABS: Hematocrit 25.1 % (37.0-53.0); Mean Corpuscular HGB 29.3 pg (26.0-34.0); Mean Corpuscular HGB Conc 31.9 g/dL (31.5-36.5); Mean Corpuscular Volume 92 fL (80-100); Mean Platelet Volume 9.8 fL (9.1-12.4); Platelet Count 210 K/mm3 (150-400); RDW Coefficient Variation 17.5 % (11.7-14.2); Red Blood Cell Count 2.73 M/mm3 (4.30-5.90); White Blood Cell Count 6.66 K/mm3 (4.00-11.30)
[2023-01-10 01:53] LABS: Anti-Xa UFH, PHA Monitoring <0.10 IU/mL; International Normalized Ratio 1.09; Prothrombin Time Results 11.4 Sec (9.7-11.5)
[2023-01-10 01:59] LABS: Albumin, Blood 2.7 g/dL (3.4-5.0); Anion Gap 4 mmol/L (6-16); Blood Urea Nitrogen 12 mg/dL (8-24); Bun/Creatinine Ratio 12.4 (12.0-20.0); CO2, Blood 29 mmol/L (21-32); Calcium, Blood 8.7 mg/dL (8.5-10.1); Chloride, Blood 105 mmol/L (98-108); Creatinine, Blood 0.97 mg/dL (0.60-1.20); Glomerular Filtration Rate 77 (60-); Glucose, Blood 113 mg/dL (70-99); Magnesium, Blood 1.6 mg/dL (1.6-2.4); Phosphorus, Blood 2.9 mg/dL (2.5-4.9); Potassium, Blood 2.8 mmol/L (3.5-5.5); Sodium, Blood 138 mmol/L (136-145)
--- NOTE | 2023-01-10 02:04 | NUR ---
HEPARIN DRIP STARTED. VSS. NO C/O VOICED
[2023-01-10 03:21] VITALS: BP 114/63
--- NOTE | 2023-01-10 05:24 | NUR ---
PRINCIPLE INDUSTRIAL HYGIENIST SUMMARY VSS. ADMITTED EARLIER IN THE SHIFT WITH DX OF ELEVATED TROPONINS. ALERT AND ORIENTED X 4. COOPERATIVE. TROP LEVEL INCREASED FROM 132 IN THE ER, TO 188 HERE ON THE FLOOR. MD NOTIFIED AND HEPARIN DRIP STARTED. HAS BEEN RESTING QUIETLY WITH OCCASIONAL INTERRUPTIONS. VOICED DIFFICULTIES WITH CPAP, TOOK IT OFF AND SAID HE WOULD HAVE HIS BROUGHT IN FROM HOME. FREQUENT TRIPS OUT OF BED TO COMMODE WITH ASSIST WITH LOOSE STOOLS. ORIENTED TO USE OF CALL LIGHT. CALL LIGHT IN REACH
[2023-01-10 07:36] VITALS: BP 116/60
[2023-01-10 13:01] LABS: Percent Saturation 7.8 % (20.0-50.0)
[2023-01-10 14:54] LABS: Bun/Creatinine Ratio 14.1 (12.0-20.0); Calcium, Blood 8.5 mg/dL (8.5-10.1); Creatinine, Blood 0.93 mg/dL (0.60-1.20); Potassium, Blood 3.2 mmol/L (3.5-5.5)
[2023-01-10 15:45] VITALS: BP 130/64
--- NOTE | 2023-01-10 17:12 | NUR ---
SHIFT SUMMARY PT A&OX4 AND PLEASANT. PT UP TO BEDSIDE COMMODE SEVERAL TIMES TODAY WITH SOFT BM's. PT DID NO WORK WITH PHYSICAL THERAPY THIS MORNING D/T ELEVATED TROPONIN LEVELS. AFTERNOON TROPONIN LEVEL SHOWED LEVEL TRENDING DOWNWARD AND ANITRA DRIP DC'D PER DOCTOR'S ORDERS. PT DENIED CP OR SOB HOWEVER PT DOES BECOME SOB WITH ACTIVITY WHICH IS NORMAL PER PT. AT BEDSIDE. PT CALLS APPROPRIATLY. BED IN LOWEST POSITION AND CALL LIGHT IN REACH.
--- NOTE | 2023-01-10 17:32 | NUR ---
VISIT MADE WITH PT AND SITTING AT THE BEDSIDE. PT IS ALERT, COOPERATIVE AND PLEASANT. THEY BOTH ARE ENGAGED IN CONVERSATION. PT REPORTS HE IS FEELING BETTER AND IS STILL RECEIVING INFUSIONS. REPORTS THAT THIS IS THE 3RD TIME HE HAS BEEN IN THE HOSPITAL, ALL FOR DIFFERENT REASONS. PT REPORTS HE WILL GO BACK HOME UPON DC AND HIS AND DTR ARE HIS CAREGIVERS. PT HAS NO CONCERNS OR SYMPTOMS AT THIS TIME. PT AND HAVE QUESTIONS ABOUT CAREGIVERS. PT REPORTS HE IS A [facility] AND IS SERVICE CONNECTED-HE HAS QUESTIONS ABOUT CAREGIVERS. ADVISED I WILL FOLLOW UP WITH CM AND FOLLOW UP WITH HIM IN THE MORNING, HE VU. LEFT MY CARD AND CONTACT INFORMATION IF HE HAS ANY OTHER QUESTIONS. PT THINKS HE WILL BE DCD TOMORROW SOMETIME. PALLIATIVE CARE WILL CONTINUE TO FOLLOW AND PROVIDE SUPPORT.
[2023-01-10 19:49] VITALS: BP 128/86
--- NOTE | 2023-01-11 03:34 | NUR ---
COREMAKER HELPER SUMMARY VSS. TROPS DOWN FROM 24 HR AGO, (156). HEP DRIP WAS DC'D ON AM SHIFT. SEE MAR FOR ANTICOAG SCHEDULED. CPAP AT NIGHT, HAS OWN, VOICED FELT BETTER WITH IT. HOB ELEVATED. REQUESTED AND MD ORDERED SLEEP MED, MED EFFECTIVE. HAS BEEN RESTING QUIETLY WITH FEW INTERRUPTIONS. DENIED CHEST PAINS. MED TELE PACED AT 66. CALL LIGHT IN REACH. WILL CONTINUE TO MONITOR
[2023-01-11 06:11] LABS: Hematocrit 25.1 % (37.0-53.0); Hemoglobin 8.1 g/dL (13.5-17.5); Mean Corpuscular HGB 29.8 pg (26.0-34.0); Mean Corpuscular HGB Conc 32.3 g/dL (31.5-36.5); Mean Corpuscular Volume 92 fL (80-100); Mean Platelet Volume 10.2 fL (9.1-12.4); Platelet Count 209 K/mm3 (150-400); RDW Coefficient Variation 17.5 % (11.7-14.2); RDW Standard Deviation 58.3 fL (35.1-46.3); Red Blood Cell Count 2.72 M/mm3 (4.30-5.90); White Blood Cell Count 6.16 K/mm3 (4.00-11.30)
[2023-01-11 06:36] LABS: Albumin, Blood 2.7 g/dL (3.4-5.0); Albumin/Globulin Ratio 0.9 (0.8-1.8); Bilirubin, Total 0.7 mg/dL (0.1-1.0); Bun/Creatinine Ratio 12.4 (12.0-20.0); Calcium, Blood 8.5 mg/dL (8.5-10.1); Creatinine, Blood 0.89 mg/dL (0.60-1.20); Potassium, Blood 3.3 mmol/L (3.5-5.5); Total Protein, Blood 5.7 g/dL (6.4-8.2)
[2023-01-11 07:56] VITALS: BP 95/59
[2023-01-11 08:14] VITALS: BP 102/56
--- NOTE | 2023-01-11 14:02 | NUR ---
CASE CONF WITH CM, PT HAD QUESTIONS ABOUT CAREGIVERS. PT REPORTS HE IS A [facility] PT AND IS SERVICE CONNECTED. HE AND HIS HAVE QUESTIONS IF THE [facility] WOULD HELP COVER SOME CAREGIVING. CURRENTLY, ALL CARE IS [id number] TO PT BY HIS SPOUSE AND DTR, SEEKING ADDITIONAL RESOURCES. CM WILL FOLLOW UP TO SEE WHAT PT IS ELIGIBLE FOR.
[2023-01-11 15:48] VITALS: BP 126/57
--- NOTE | 2023-01-11 18:31 | NUR ---
SHIFT SUMMARY PT A&OX4 AND PLEASANT. NO ACUTE CHANGES TODAY. PT WORKED WITH PHYSCIAL THERAPY AND AMBULATED TO HALLWAY AND BACK TO BED. PT BECOMES SOB WITH ACTIVITY WHICH PT STATES IS HIS BASELINE. NO C/O PAIN. VERY LITTLE APPETITE. AT BEDSIDE FOR AFTERNOON. CALLS APPROPRIATELY. BED IN LOWEST POSITION AND CALL LIGHT IN REACH.
[2023-01-11 19:55] VITALS: BP 126/65
[2023-01-12 03:30] VITALS: BP 112/72
--- NOTE | 2023-01-12 04:06 | NUR ---
SHIFT MOSTLY UNREMARKABLE. PER DAY SHIFT REPORT PT DID NOT HAVE BOWEL MOVEMENT YESTERDAY BUT DID HAVE 2 LARGE ONES THE DAY PRIOR. PT REQUESTED MIRALAX WITH EVENING MEDICATIONS AFTER REFUSING 0900 DOSE OF MIRALAX. PROVIDED THIS ALONG WITH COLACE. ENCOURAGED INCREASING PO FLUID INTAKE TO AID MIRALAX IN STIMULATING BM. DIRUETIC THERAPY IN PLACE FOR PT. PT HAS BEEN 1 PERSON ASSIST TO BEDSIDE COMMODE THROUGHOUT SHIFT. FREQUENT VOIDING. MILD O2 DESATURATION WITH TRANSFER OTHERWISE >92% ON ROOM AIR. COMPLAINTS OF NAUSEA EARLY THIS MORNING WHICH WERE ADEQUATELY MANAGED WITH PRN ZOFRAN. PT HAD SMALL AMOUNT OF UNMEASURED EMESIS LATE LAST EVENING AND FELT FINE AFTER. BOWEL AUSCULTATION WAS HYPERACTIVE WITH VERY MILD ABDOMINAL TENDERNESS. WILL PASS INFORMATION TO DAY SHIFT. PT AOX4, COOPERATIVE WITH CARE, AND PLEASANT. CALLS APPROPRIATELY. CALL LIGHT LEFT WITHIN REACH.
[2023-01-12 05:33] LABS: Hematocrit 26.1 % (37.0-53.0); Hemoglobin 8.4 g/dL (13.5-17.5); Mean Corpuscular HGB 29.9 pg (26.0-34.0); Mean Corpuscular HGB Conc 32.2 g/dL (31.5-36.5); Mean Corpuscular Volume 93 fL (80-100); Mean Platelet Volume 10.3 fL (9.1-12.4); Platelet Count 215 K/mm3 (150-400); RDW Coefficient Variation 17.6 % (11.7-14.2); RDW Standard Deviation 59.6 fL (35.1-46.3); Red Blood Cell Count 2.81 M/mm3 (4.30-5.90)
[2023-01-12 06:22] LABS: Bun/Creatinine Ratio 12.2 (12.0-20.0); Calcium, Blood 8.7 mg/dL (8.5-10.1); Creatinine, Blood 0.99 mg/dL (0.60-1.20); Potassium, Blood 3.2 mmol/L (3.5-5.5)
[2023-01-12 07:38] VITALS: BP 119/57
--- NOTE | 2023-01-12 08:00 | NUR ---
pt laying in bed awake watching tv, pleasant and cooperative with care, follows commands well, denies pain, states he feels good, slept well last night, lungs are clear dim in bases posterior, anterior can detect a faint exp wheeze, on r/a, uses cpap with sleep, hrr, tele in place running paced rhythm, iv to rac site is clear and patent, btx4, abd large soft nontender, voids without diff, skin has b/l le wrapped by [facility], will not remove dressing, he denies having wounds, just for edema, maew, ambulates with walker, gait noted to be steady, hardeep, call light in reach.
[2023-01-12] MEDS ORDERED: SPIR25 PO (09:59)
[2023-01-12] MEDS ORDERED: POTA10T PO (10:29)
--- NOTE | 2023-01-12 11:00 | NUR ---
PT RESTING COMF, NO CONCERNS OR NEEDS AT THIS TIME. PT REPORTS HE IS TO BE DCD TODAY.
--- NOTE | 2023-01-12 12:30 | NUR ---
pt has been discharged to home, went over instructions with him, faxed new med to [facility] [place], iv removed intact, stayed for lunch, left with all belongings via wheelchair with spouce and client resolution specialist in attendence.
== END 2023-01-12 12:38 | disposition home or self-care (01) | DRG 641 ==
LOC: ER 13:32 → MEDS 17:51
PROVIDERS: Emergency Medicine; Internal Medicine; ADMIT Internal Medicine
DX: E87.6 Hypokalemia (principal); I50.32 Chronic diastolic (congestive) heart failure; I24.8 Other forms of acute ischemic heart disease; D64.9 Anemia, unspecified; J44.9 Chronic obstructive pulmonary disease, unspecified; E78.5 Hyperlipidemia, unspecified; I73.9 Peripheral vascular disease, unspecified; I11.0 Hypertensive heart disease with heart failure; I87.8 Other specified disorders of veins; G47.33 Obstructive sleep apnea (adult) (pediatric); G62.9 Polyneuropathy, unspecified; E66.9 Obesity, unspecified; Z68.33 Body mass index [BMI] 33.0-33.9, adult; Z85.46 Personal history of malignant neoplasm of prostate; Z99.89 Dependence on other enabling machines and devices; Z90.49 Acquired absence of other specified parts of digestive tract; Z95.0 Presence of cardiac pacemaker; Z98.890 Other specified postprocedural states; Z87.891 Personal history of nicotine dependence; Z88.0 Allergy status to penicillin; Z88.6 Allergy status to analgesic agent; Z88.8 Allergy status to other drugs, medicaments and biological substances; Z79.02 Long term (current) use of antithrombotics/antiplatelets; Z79.899 Other long term (current) drug therapy
CPT/HCPCS: 36415; 71045; 80048; 80053; 80069; 82607; 82728; 82746; 83540; 83550; 83735; 83880; 84132; 84484; 85025; 85027; 85520; 85610; 93005; 93010; 94640; 94660; 94664; 94762; 96365; 96366; 96372-59; 96375; 97110; 97161; 97530; 99285-25; A9270; G0378; J1644; J2405; J2916; J3480; J7030

== ENCOUNTER 2023-03-24 07:58 | Emergency (ER) | payer OTHER ==
[~2023-03-24] VITALS: Ht 188 cm; Wt 113.4 kg
[~2023-03-24 07:58] MED LIST changes: +CLOPIDOGREL300 M1; +DOCU100; +GABA100; +MOME.1TO; +NEURONTIN300 MG; +STIOLTO RESPIMAT4 G1 INH
[2023-03-24] MEDS ORDERED: Percocet 5-3251 EACH PO (09:58)
[2023-03-24 10:02] VITALS: BP 140/82
== END 2023-03-24 10:47 | disposition home or self-care (01) ==
LOC: ER 07:58
DX: R10.30 Lower abdominal pain, unspecified (principal); I10 Essential (primary) hypertension; G47.33 Obstructive sleep apnea (adult) (pediatric); E78.5 Hyperlipidemia, unspecified; J44.9 Chronic obstructive pulmonary disease, unspecified; Z88.0 Allergy status to penicillin; Z88.1 Allergy status to other antibiotic agents; Z88.5 Allergy status to narcotic agent; Z88.6 Allergy status to analgesic agent; Z88.8 Allergy status to other drugs, medicaments and biological substances; Z79.02 Long term (current) use of antithrombotics/antiplatelets; Z79.51 Long term (current) use of inhaled steroids; Z79.899 Other long term (current) drug therapy
CPT/HCPCS: 99283; A9270

== ENCOUNTER 2024-02-14 11:38 | Day surgery (SDC) | payer OTHER ==
[~2024-02-14] VITALS: Ht 180.3 cm; Wt 130.0 kg
[~2024-02-14 11:38] MED LIST changes: +ALBU2.5V5 INH; -ALBU2.5V5 NEB; +ALEVE ARTHRITI100 GM TOP; +ASCORBIC ACID500 MG PO; +ASMANEX220 M14 INH; +Balanced Salt Epinephrine Irrigation Solution 500 mL IR SCH; -CLOPIDOGREL300 M1; -DOCU100; +FERROUS GLUCON324 M7 PO; +LATA.005SO LEFTEYE; +LIDOCAINE HCL TOP; +Lidocaine HCl/Pf 1% 5 ML VIAL XX SCH; -MOME220I INH; +Moxifloxacin HCL 0.5 MG/0.1 ML 0.4MLSYR RIGHTEYE SCH; -NEURONTIN300 MG; +NEURONTIN300 MG PO; +NS 500 ML IV ONE; +PHENYLEPHRINE\\TROPICAMIDE\\TETRACAINE OPHTHALMIC DILATING SOLN RIGHTEYE PRN; +PRED FORTE5 ML LEFTEYE; +Percocet 5-3251 EACH PO; +Povidone-Iodine 450 DROP/30 ML Solution ONE; +Povidone-Iodine 450 DROP/30 ML Solution RIGHTEYE SCH; +SIMBRINZA 1%-0.28 M1 LEFTEYE; +Triamcinolone Inj Susp 40 MG / ML 1ML Vial INJ SCH; +Triamcinolone Inj Susp 40 MG / ML 1ML Vial ONE
[2024-02-14] MEDS ORDERED: Midazolam HCl 1MG / ML 2ML Vial ONE ×2 (12:19→12:58)
[2024-02-14] MEDS ORDERED: SPIR50 PO (12:21)
[2024-02-14] MEDS ORDERED: NS 500 ML IV ONE (12:35)
[2024-02-14] MEDS ORDERED: Tetracaine HCl 0.5% Opth Soln 15 ml RIGHTEYE ONE (12:51)
--- NOTE | 2024-02-14 12:51 | NUR ---
02/14/24 1251 Lucy Sarmiento PATIENT REPORTS OPEN SORE TO L FOOT THAT HE HAD DURING PROCEDURE LAST WEEK WELL, REPORTS HE HAS HAD THIS SORE FOR 8 MONTHS, [facility]
[2024-02-14 14:50] VITALS: BP 150/55
--- NOTE | 2024-02-14 14:52 | NUR ---
02/14/24 1452 Dima Weir PT STATES RECORDED B/P IS CLOSER TO BASELINE THAN PRE-OP. PT INSTRUCTED TO MONITOR B/P AT HOME, AND FOLLOW UP WITH PCP IF NEEDED. HE DENIED CP, SOB, OR DIZZINESS.
== END 2024-02-14 13:43 | disposition home or self-care (01) ==
LOC: ORSCSDS 11:38
PROVIDERS: Ophthalmology
PROC: 08RJ3JZ Replacement of Right Lens with Synthetic Substitute, Percutaneous Approach (ICD-10-PCS; principal; 2024-02-14 13:00)
DX: H25.11 Age-related nuclear cataract, right eye (principal); Z96.1 Presence of intraocular lens; H21.81 Floppy iris syndrome; I10 Essential (primary) hypertension; K21.9 Gastro-esophageal reflux disease without esophagitis; G47.33 Obstructive sleep apnea (adult) (pediatric); Z95.0 Presence of cardiac pacemaker; Z79.899 Other long term (current) drug therapy
CPT/HCPCS: J2250; J3301; J7040; V2632

== ENCOUNTER 2024-09-22 06:18 | Emergency (ER) | payer OTHER ==
[~2024-09-22] VITALS: Ht 177.8 cm; Wt 115.7 kg
[~2024-09-22 06:18] MED LIST changes: -Balanced Salt Epinephrine Irrigation Solution 500 mL IR SCH; -Lidocaine HCl/Pf 1% 5 ML VIAL XX SCH; -Moxifloxacin HCL 0.5 MG/0.1 ML 0.4MLSYR RIGHTEYE SCH; -NS 500 ML IV ONE; -PHENYLEPHRINE\\TROPICAMIDE\\TETRACAINE OPHTHALMIC DILATING SOLN RIGHTEYE PRN; -Povidone-Iodine 450 DROP/30 ML Solution ONE; -Povidone-Iodine 450 DROP/30 ML Solution RIGHTEYE SCH; +SPIR50 PO; -Triamcinolone Inj Susp 40 MG / ML 1ML Vial INJ SCH; -Triamcinolone Inj Susp 40 MG / ML 1ML Vial ONE
[2024-09-22 07:07] LABS: Hematocrit 31.3 % (37.0-53.0); Hemoglobin 10.9 g/dL (13.5-17.5); Mean Corpuscular HGB 37.5 pg (26.0-34.0); Mean Corpuscular HGB Conc 34.8 g/dL (31.5-36.5); Mean Corpuscular Volume 108 fL (80-100); Mean Platelet Volume 10.7 fL (9.1-12.4); Platelet Count 165 K/mm3 (150-400); RDW Coefficient Variation 12.5 % (11.7-14.2); RDW Standard Deviation 49.8 fL (35.1-46.3); Red Blood Cell Count 2.91 M/mm3 (4.30-5.90); White Blood Cell Count 13.44 K/mm3 (4.00-11.30)
[2024-09-22 07:27] LABS: BAND PERCENT MAN 22 % (0-8); BASOPHILS PERCENT MAN 0 % (0-2); EOSINOPHILS PERCENT MAN 0 % (0-6); MONOCYTES ABSOLUTE MAN 0.67 K/mm3 (0.16-1.47); MONOCYTES PERCENT MAN 5 % (4-13); NEUTROPHILS ABSOLUTE MAN 12.76 K/mm3 (1.96-9.15); SEG NEUTROPHILS PERCENT MAN 73 % (41-73); TOTAL CELLS COUNTED 100
[2024-09-22] MEDS ORDERED: JARDIANCE10 MG (07:28)
[2024-09-22 07:36] LABS: Albumin, Blood 2.2 g/dL (3.4-5.0); Albumin/Globulin Ratio 0.5 (0.8-1.8); Bilirubin, Total 2.2 mg/dL (0.1-1.0); Bun/Creatinine Ratio 19.9 (12.0-20.0); Calcium, Blood 8.5 mg/dL (8.5-10.1); Creatinine, Blood 1.81 mg/dL (0.60-1.20); Globulin, Blood 4.4 g/dL (2.2-4.0); Potassium, Blood 2.4 mmol/L (3.5-5.5); Total Protein, Blood 6.6 g/dL (6.4-8.2)
[2024-09-22] MEDS ORDERED: Potassium Chloride 20 MEQ TabCR PO ONE (08:00)
[2024-09-22 08:13] LABS: Influenza A, PCR NEGATIVE (NEGATIVE); Influenza B, PCR NEGATIVE (NEGATIVE); Resp Syncytial Virus, PCR NEGATIVE (NEGATIVE); SARS-Cov-2 (COVID-19) PCR, MMC NEGATIVE (NEGATIVE)
[2024-09-22] MEDS ORDERED: Azithromycin 250 MG Tab PO ONE (12:45)
[2024-09-22] MEDS ORDERED: AZIT250 PO (12:52)
[2024-09-22] MEDS ORDERED: Prednisone20 MG PO (12:52)
[2024-09-22] MEDS ORDERED: PredniSONE 20 MG Tab PO ONE (12:55)
[2024-09-22 14:15] VITALS: BP 108/84
== END 2024-09-22 14:34 | disposition home or self-care (01) ==
LOC: ER 06:18
PROVIDERS: Emergency Medicine
DX: J18.9 Pneumonia, unspecified organism (principal); J44.9 Chronic obstructive pulmonary disease, unspecified; I50.30 Unspecified diastolic (congestive) heart failure; I11.0 Hypertensive heart disease with heart failure; E78.5 Hyperlipidemia, unspecified; G47.33 Obstructive sleep apnea (adult) (pediatric); Z79.52 Long term (current) use of systemic steroids; Z79.899 Other long term (current) drug therapy; Z88.0 Allergy status to penicillin; Z88.1 Allergy status to other antibiotic agents; Z88.5 Allergy status to narcotic agent; Z88.6 Allergy status to analgesic agent; Z88.8 Allergy status to other drugs, medicaments and biological substances
CPT/HCPCS: 0241U; 71045; 80053; 83880; 84484; 85025; 93005; 93010; 99285-25; A9270; J7512

== ENCOUNTER 2024-09-29 06:14 | Inpatient (IN) | payer OTHER ==
[~2024-09-29] VITALS: Ht 177.8 cm; Wt 117.0 kg
[2024-09-29] VITALS (10 sets, daily range): BP systolic 92–159; BP diastolic 50–77
[~2024-09-29 06:14] MED LIST changes: +JARDIANCE10 MG; +Prednisone20 MG PO
[2024-09-29 06:42] LABS: Hematocrit 33.5 % (37.0-53.0); Hemoglobin 11.8 g/dL (13.5-17.5); Mean Corpuscular HGB 36.6 pg (26.0-34.0); Mean Corpuscular HGB Conc 35.2 g/dL (31.5-36.5); Mean Corpuscular Volume 104 fL (80-100); Mean Platelet Volume 9.9 fL (9.1-12.4); NRBC ABSOLUTE 0.02 K/mm3 (0.00-0.02); NRBC Auto 0.1 /100 WBC (0.0-0.2); Platelet Count 272 K/mm3 (150-400); RDW Coefficient Variation 13.1 % (11.7-14.2); RDW Standard Deviation 49.5 fL (35.1-46.3); Red Blood Cell Count 3.22 M/mm3 (4.30-5.90); White Blood Cell Count 20.69 K/mm3 (4.00-11.30)
[2024-09-29 07:07] LABS: BAND PERCENT MAN 4 % (0-8); BASOPHILS PERCENT MAN 0 % (0-2); EOSINOPHILS PERCENT MAN 0 % (0-6); LYMPHOCYTES ABSOLUTE MAN 2.48 K/mm3 (0.84-5.20); LYMPHOCYTES PERCENT MAN 12 % (21-46); METAMYELOCYTE ABSOLUTE MAN 0.41 K/mm3 (0.00-0.00); METAMYELOCYTE PERCENT MAN 2 % (0-0); MONOCYTES ABSOLUTE MAN 1.24 K/mm3 (0.16-1.47); MONOCYTES PERCENT MAN 6 % (4-13); MYELOCYTE ABSOLUTE MAN 0.41 K/mm3 (0.00-0.00); MYELOCYTE PERCENT MAN 2 % (0-0); NEUTROPHILS ABSOLUTE MAN 16.13 K/mm3 (1.96-9.15); SEG NEUTROPHILS PERCENT MAN 74 % (41-73); TOTAL CELLS COUNTED 100
[2024-09-29] MEDS ORDERED: NS 1,000 ML IV SCH ×2 (07:10→08:00)
[2024-09-29] MEDS ORDERED: Azithromycin 500 MG in NS 250 ML IV ONE ×2 (07:30→11:05)
[2024-09-29] MEDS ORDERED: CefTRIAXone Sodium 1,000 MG in NS 100 ML IV ONE ×2 (07:30→11:05)
[2024-09-29 07:34] LABS: Albumin, Blood 2.2 g/dL (3.4-5.0); Albumin/Globulin Ratio 0.5 (0.8-1.8); Bilirubin, Total 1.1 mg/dL (0.1-1.0); Bun/Creatinine Ratio 20.2 (12.0-20.0); Calcium, Blood 8.9 mg/dL (8.5-10.1); Creatinine, Blood 1.29 mg/dL (0.60-1.20); Globulin, Blood 4.3 g/dL (2.2-4.0); Potassium, Blood 2.4 mmol/L (3.5-5.5); Total Protein, Blood 6.5 g/dL (6.4-8.2)
[2024-09-29] MEDS ORDERED: Potassium Chloride 40 MEQ IV ONE (07:55)
[2024-09-29] MEDS ORDERED: Potassium Chl 20MEQ/Water100ML 100 ML IV SCH ×2 (08:00→16:50)
[2024-09-29] MEDS ORDERED: FLU VACC TS2024-25(6MOS UP)/PF 45 MCG/0.5 ML SYRINGE IM SCH (08:25)
[2024-09-29] MEDS ORDERED: NS 250 ML IV PRN (11:35)
[2024-09-29] MEDS ORDERED: Lidocaine 2% Jelly Uro-Jet UR ONE (11:55)
[2024-09-29] MEDS ORDERED: Midodrine 2.5 MG Tab PO SCH (13:00)
[2024-09-29 13:51] LABS: Adenovirus Not Detected (NOT DETECT); Coronavirus 229E Not Detected (NOT DETECT); Coronavirus HKU1 Not Detected (NOT DETECT); Coronavirus NL63 Not Detected (NOT DETECT); Coronavirus OC43 Detected (NOT DETECT)
[2024-09-29 13:52] LABS: Bordetella pertussis Not Detected (NOT DETECT); Chlamydophila pneumoniae Not Detected (NOT DETECT); Human Metapneumovirus Not Detected (NOT DETECT); Human Rhinovirus/Enterovirus Not Detected (NOT DETECT); Influenza A/2009-H1 Not Detected (NOT DETECT); Influenza A/H1 Not Detected (NOT DETECT); Influenza A/H3 Not Detected (NOT DETECT); Influenza B Not Detected (NOT DETECT); Mycoplasma pneumoniae Not Detected (NOT DETECT); Parainfluenza Virus 1 Not Detected (NOT DETECT); Parainfluenza Virus 2 Not Detected (NOT DETECT); Parainfluenza Virus 3 Not Detected (NOT DETECT); Parainfluenza Virus 4 Not Detected (NOT DETECT); Respiratory Syncytial Virus Not Detected (NOT DETECT); SARS-Cov-2 (COVID-19), BioFire Not Detected (NOT DETECT)
[2024-09-29] MEDS ORDERED: N-Acetylcysteine 600 MG CAP PO SCH (14:00)
[2024-09-29] MEDS ORDERED: FURO40 PO (14:32)
[2024-09-29] MEDS ORDERED: CLOP75 PO (14:38)
[2024-09-29] MEDS ORDERED: ATEN25 PO (14:38)
[2024-09-29] MEDS ORDERED: Ondansetron HCl 2 MG / ML 2ML Vial IV PRN (15:35)
[2024-09-29] MEDS ORDERED: Acetaminophen 325 MG TABLET PO PRN (15:35)
[2024-09-29] MEDS ORDERED: FentaNYL Citrate 50 MCG/ML 2 ML Injection IV PRN (15:35)
[2024-09-29] MEDS ORDERED: Baclofen 10 MG Tab PO PRN (16:10)
[2024-09-29 16:15] LABS: Bun/Creatinine Ratio 19.5 (12.0-20.0); Calcium, Blood 8.7 mg/dL (8.5-10.1); Creatinine, Blood 1.28 mg/dL (0.60-1.20); Potassium, Blood 2.6 mmol/L (3.5-5.5)
[2024-09-29] MEDS ORDERED: Albuterol 2.5 MG/3 ML VIAL INH PRN (16:15)
[2024-09-29] MEDS ORDERED: Nitroglycerin 0.4 MG SUBL SL PRN (16:15)
[2024-09-29] MEDS ORDERED: Mometasone Furoate Inhaler 220 mcg 14 ACT INH SCH (16:25)
[2024-09-29] MEDS ORDERED: Ipratropium/Albuterol SulF 2.5-0.5MG/3 ML Amp INH SCH ×2 (16:30→17:36)
[2024-09-29] MEDS ORDERED: Pantoprazole Sodium 40 MG Tab PO SCH (16:30)
[2024-09-29] MEDS ORDERED: Metoclopramide HCl 5MG / ML 2ML Vial IV PRN (16:50)
[2024-09-29] MEDS ORDERED: Potassium Chloride 20 MEQ TabCR PO ONE (17:00)
[2024-09-29] MEDS ORDERED: Magnesium Hydroxide Conc 10 ML UDC PO PRN (17:00)
[2024-09-29] MEDS ORDERED: Magnesium Hydroxide Conc 10 ML UDC PO ONE (17:00)
[2024-09-29] MEDS ORDERED: PrednisoLONE 1% Opth Susp 5 ML LEFTEYE SCH (17:00)
[2024-09-29] MEDS ORDERED: Mag Hydrox/Al Hydrox/Simeth 18 ML,Lidocaine 2% Viscous Soln 9 ML,Atropine/Scopalam/Hyos... PO ONE (17:10)
--- NOTE | 2024-09-29 18:16 | NUR ---
Admit/ End of shift note Pt admitted from the ED to [facility]. Pt was oriented to the room and called the light system. BPs were soft on admit but have improved throughout the shift. CT chest was completed this afternoon. When arriving back to the unit, Pt was moved back to the bed and immediately became nauseous and vomited a small amount. Pt reports that his abd was a 7/10 pain. MD was phoned x2 for orders. See MAR. Seems to be a little more comfortable this shift. Multiple visitors this shift. Pt admitted with a chronic hunter. Pt and family did not want the catheter changed out today, reporting it would cause him a lot of anxiety. Due to be changed Oct 08. clinical project assistant notified. Pt is able to make needs known, call light is within reach.
--- NOTE | 2024-09-29 20:10 | NUR ---
START OF SHIFT THIS NURSE ASSUMED CARE AT APPROXIMATELY 1900. UPDATE GIVEN TO DAUGHTER MISTY. PT RESTING IN BED. PT COMPLAINS OF 6/10 ABDOMINAL PAIN BUT STATES THE PAIN HAS IMPROVED. PT STATED PAIN STARTED AFTER HE ARRIVED AND TOOK PO MEDS. PREVIOUS NURSE STATED MD AWARE. PT ON 4L NC. PT HAD NO OTHER COMPLAINTS. WILL CONTINUE PLAN OF CARE.
[2024-09-29] MEDS ORDERED: Cilostazol 50 MG Tab PO SCH (21:00)
[2024-09-29] MEDS ORDERED: BRINZOLAMIDE BOTHEYES SCH (21:00)
[2024-09-29] MEDS ORDERED: Docusate Sodium 100 MG Cap PO SCH (21:00)
[2024-09-29] MEDS ORDERED: Gabapentin 300 MG Cap PO SCH (21:00)
[2024-09-29] MEDS ORDERED: BRIMONIDINE BOTHEYES SCH (21:00)
[2024-09-29] MEDS ORDERED: Tamsulosin HCl 0.4 MG Cap PO SCH (21:00)
[2024-09-29] MEDS ORDERED: Lactobacil 2-S.Thermo-Bifido 1 1 Cap PO SCH (21:00)
[2024-09-29] MEDS ORDERED: EYE BOTHEYES SCH (21:00)
[2024-09-29] MEDS ORDERED: Latanoprost 0.005% Opth Soln 2.5 ML LEFTEYE SCH (21:00)
[2024-09-29] MEDS ORDERED: Atorvastatin 40 MG Tab PO SCH (21:00)
[2024-09-30] VITALS: BP 160/60
[2024-09-30 01:21] LABS: Bun/Creatinine Ratio 18.9 (12.0-20.0); Calcium, Blood 8.8 mg/dL (8.5-10.1); Creatinine, Blood 1.27 mg/dL (0.60-1.20); Potassium, Blood 3.1 mmol/L (3.5-5.5)
[2024-09-30] MEDS ORDERED: Potassium Chl 20MEQ/Water100ML 100 ML IV SCH (01:30)
[2024-09-30] MEDS ORDERED: Magnesium Sulf 2 GM/Water 50ML 50 ML IV ONE (01:30)
[2024-09-30] MEDS ORDERED: Melatonin 5 MG Tablet PO ONE (01:55)
[2024-09-30 04:00] VITALS: BP 152/67
[2024-09-30 04:02] LABS: Hematocrit 31.2 % (37.0-53.0); Mean Corpuscular HGB 36.8 pg (26.0-34.0); Mean Corpuscular HGB Conc 35.3 g/dL (31.5-36.5); Mean Corpuscular Volume 104 fL (80-100); Mean Platelet Volume 9.7 fL (9.1-12.4); Platelet Count 281 K/mm3 (150-400); RDW Coefficient Variation 13.2 % (11.7-14.2); RDW Standard Deviation 50.9 fL (35.1-46.3); Red Blood Cell Count 2.99 M/mm3 (4.30-5.90); White Blood Cell Count 20.17 K/mm3 (4.00-11.30)
--- NOTE | 2024-09-30 04:17 | NUR ---
SHIFT SUMMARY PT COMPLAINED OF PAIN 1X OVER NIGHT. 25MCG GIVEN OF FENTANYL. PAIN IMPROVED. 1X DOSE OF 5MG MELATONIN ORDERED AND GIVEN, PT ABLE TO SLEEP FOR A FEW HOURS AT A TIME. PT ON 4L NC, AO X4. POTASSIUM BEING REPLACED. 2G OF MAG REPLACED. WILL CONTINUE PLAN OF CARE.
[2024-09-30 04:19] LABS: International Normalized Ratio 1.08; Prothrombin Time Results 11.5 Sec (9.7-11.5)
[2024-09-30 04:23] LABS: Calcium, Blood 8.9 mg/dL (8.5-10.1); Creatinine, Blood 1.19 mg/dL (0.60-1.20); Potassium, Blood 3.2 mmol/L (3.5-5.5)
[2024-09-30] MEDS ORDERED: Azithromycin 250 MG Tab PO SCH (09:00)
[2024-09-30] MEDS ORDERED: Polyethylene Glycol 3350 17 gm PO SCH (09:00)
[2024-09-30] MEDS ORDERED: CefTRIAXone Sodium 1,000 MG in NS 100 ML IV SCH (09:00)
[2024-09-30] MEDS ORDERED: Enoxaparin 40 MG/0.4 ML SYR SC SCH (09:00)
[2024-09-30] MEDS ORDERED: Empagliflozin 10 MG TAB PO SCH (09:00)
[2024-09-30] MEDS ORDERED: Ascorbic Acid 500 MG Tab PO SCH (09:00)
[2024-09-30] MEDS ORDERED: Clopidogrel Bisulfate 75 MG Tab PO SCH (09:00)
[2024-09-30] MEDS ORDERED: Ferrous Gluconate 325 MG Tablet PO SCH (09:00)
[2024-09-30 09:03] VITALS: BP 135/77
[2024-09-30 11:57] VITALS: BP 132/62
[2024-09-30] MEDS ORDERED: Spironolactone 25 MG Tab PO SCH (12:00)
[2024-09-30] MEDS ORDERED: Atenolol 25 MG Tab PO SCH (12:00)
[2024-09-30] MEDS ORDERED: Furosemide 40 MG Tab PO SCH (12:00)
[2024-09-30] MEDS ORDERED: MetroNIDAZOLE 500MG/NS 100 ml 100 ML IV SCH (16:00)
[2024-09-30 16:28] VITALS: BP 142/65
--- NOTE | 2024-09-30 18:17 | NUR ---
End of shift note Pt was OOB this morning to the chair. Pt was able to move with 1-2 SBA with FWW. Pt has maintained sats 94% on 3L. Thoracentesis on hold per radiology, MD notified. Pulmonology consulted and will continue to conservatively manage fluid collection. Chronic hunter in place for retention, draining clear yellow urine. Significant bowel care given this shift. Pt was able to have large liquid BM this shift. Abd pain has much improved. Only one episode of vomiting, shortly after lunch. Resolved with PRN meds Pt was downgraded to medical status this afternoon. Tele remains in place. Multiple visitors this shift. Pt is able to make needs known, call light is within reach.
[2024-09-30] MEDS ORDERED: Linezolid 600 MG Tab PO SCH (21:00)
[2024-09-30 21:05] VITALS: BP 139/70
[2024-09-30] MEDS ORDERED: Potassium Chloride 10 Meq Tablet SA PO ONE (21:40)
[2024-10-01 00:34] VITALS: BP 137/64
[2024-10-01 04:58] VITALS: BP 143/64
[2024-10-01 06:06] LABS: Bun/Creatinine Ratio 19.3 (12.0-20.0); Calcium, Blood 8.9 mg/dL (8.5-10.1); Creatinine, Blood 1.09 mg/dL (0.60-1.20); Potassium, Blood 3.4 mmol/L (3.5-5.5)
--- NOTE | 2024-10-01 06:35 | NUR ---
PT STABLE THROUGHOUT SHIFT ON 2L O2 BY NC. PT TOLERATING IV ABX. PT DID WEAR CPAP INTERMITTENTLY DURING NOC SHIFT. PT AOX4, ABLE TO USE CALL LIGHT AND MAKE NEEDS KNOWN. CHRONIC BESS IN PLACE AND CONTINUES TO DRAIN WELL. PT STATES THAT IT WAS JUST CHANGED AT NC 1XWEEK AGO. PT HAS HAD GOOD OUTPUT FROM BESS. ABD DISTENDED NO BM ON THIS SHIFT, PT WAS GIVEN BOWEL CARE. PT POTASSIUM WAS REPLETED X1 WITH 20MEQ PO POTASSIUM. PT PACED RATE IN 70S, NO C/O CP OR SOB. PT DOES NOT HAVE PRODUCTIVE COUGH AT THIS TIME, SPUTUM SAMPLE STILL PENDING COLLECTION. PT DOES REQUIRE ENCOURAGEMENT FOR ADLS AND ATTEMPTS TO HAVE STAFF DO BASICS THINGS LIKE HOLD CUP FOR WATER WHEN DRINKING OR FEEDING APPLESAUCE WITH PILLS. PT IS ABLE TO DO THIS TASK INDEPENDENTLY WHEN ENCOURAGED TO DO SO.
[2024-10-01 07:37] VITALS: BP 127/63
[2024-10-01] MEDS ORDERED: Potassium Chloride 20 MEQ TabCR PO ONE (07:40)
[2024-10-01 15:58] VITALS: BP 144/68
--- NOTE | 2024-10-01 18:35 | NUR ---
SHIFT SUMMARY: PT HAS BEEN A&Ox4, ABLE TO MAKE NEEDS KNOWN, COOPERATIVE W/CARE. O2 SATS >92% ON 2 L/MIN NC, CPAP ON SB. SPUTUM SAMPLE CONTINUES TO PEND, NO PRODUCTIVE COUGH AT THIS TIME. NO THORACENTESIS TODAY. PT ENCOURAGED TO USE INC SPIROMETER WHILE AWAKE AND DOES USE IT REPEATEDLY T/OUT THE DAY. PT DENIES CP, PACED RATE MOSTLY 70s ON MONITOR. CHRONIC BESS PATENT, DRAINING DARK YELLOW COLORED URINE TO GRAVITY. PT OOB W/ 1-2 ASSIST AND FWW, LOOSE/LIQUID STOOL, BOWEL CARE HELD THIS AM, BEDBATH COMPLETED. PT SPENDS MOST OF THE DAY IN RECLINER, ALSO WORKS WITH PT. PT REPORTS LOW APPETITE, ENSURE ADDED TO MEALS BID. POTASSIUM REPLACED THIS SHIFT. AT THIS TIME PT IS RESTING QUIETLY IN BED W/CALL LIGHT IN REACH.
[2024-10-01 21:23] VITALS: BP 120/60
[2024-10-02] MEDS ORDERED: HydrOXYzine Pamoate 25 MG Cap PO PRN (02:50)
[2024-10-02 03:05] VITALS: BP 139/85
[2024-10-02 06:46] LABS: Hematocrit 29.3 % (37.0-53.0); Hemoglobin 10.3 g/dL (13.5-17.5); Mean Corpuscular HGB Conc 35.2 g/dL (31.5-36.5); Mean Corpuscular Volume 108 fL (80-100); Mean Platelet Volume 9.9 fL (9.1-12.4); Platelet Count 225 K/mm3 (150-400); RDW Coefficient Variation 13.4 % (11.7-14.2); RDW Standard Deviation 53.3 fL (35.1-46.3); Red Blood Cell Count 2.71 M/mm3 (4.30-5.90); White Blood Cell Count 13.84 K/mm3 (4.00-11.30)
[2024-10-02 06:57] LABS: Bun/Creatinine Ratio 19.4 (12.0-20.0); Calcium, Blood 9.2 mg/dL (8.5-10.1); Creatinine, Blood 0.98 mg/dL (0.60-1.20); Potassium, Blood 3.9 mmol/L (3.5-5.5)
--- NOTE | 2024-10-02 07:30 | NUR ---
INITIAL ASSESSMENT: Patient is awake lying in bed, he is oriented x4. He is atrial paced in the 70s. He reports he is having RLQ pain, he rates this at a 5/10. LS DIM in the bases, biox high 90s on 2l oxygen. ABD distended and has tympanic bowel tones. BLE with edema and a wound on left ankle with mepilex in place. He was assisted to dangle, when he got up he started pooping, he was assisted to the BSC. Patient is having liquid brown stool. VSS. Patient is going to sit for a little bit. Call light in reach.
--- NOTE | 2024-10-02 07:31 | NUR ---
PT STABLE THROUGHOUT THE SHIFT. INTERMITTENT USE OF CPAP. PT DID C/O ANXIETY AND WAS GIVEN HYDROXAZINE WITH GOOD EFFECT. CHRONIC BESS IN PLACE AND CONTINUES TO DRAIN WELL. PT TOLERATING IV ABX.
[2024-10-02 07:37] VITALS: BP 146/70
[2024-10-02] MEDS ORDERED: Potassium Chloride 10 Meq Tablet SA PO SCH (09:00)
--- NOTE | 2024-10-02 10:30 | NUR ---
Update: Dr. Meza is at the bedside to evaluate patients pleural effusion, he talked with the patient about a thoracentesis. Patient and are agreeable. Bedside throa was completed, the fluid was drained was purlent. 3 tubes were sent, was brought to the bedside and updated. approx 30cc removed. Dr. Meza attempted to place a pigtail chest tube to assess further drainage, no other drainage noted, pigtail tube removed. The patient tolerated the procedure well.
[2024-10-02 10:55] VITALS: BP 142/65
--- NOTE | 2024-10-02 12:30 | NUR ---
Chest tube placement: Patient has a second loculated pocket of fluid on the left side, patient prepped and pigtail chest tube was placed. He had more purlent drainage removed, approximately 50 cc drained. Tube to 20 cm suction with water seal collection system. Patient tolerated procedure well. VSS. at bedside. Call light in reach.
[2024-10-02 13:12] LABS: Automated BF RBC Count 0.061 M/mm3 (0-0)
[2024-10-02 13:20] LABS: Albumin, Body Fluid 1.2 g/dL; Glucose, Body Fluid 8 mg/dL; Triglycerides, Body Fluid 27 mg/dL
[2024-10-02 14:04] LABS: Protein, Body Fluid 3.9 g/dL
[2024-10-02 15:13] VITALS: BP 124/58
[2024-10-02 15:22] LABS: Lactate Dehydrogenase, Body Fl >8000 U/L
[2024-10-02 15:37] LABS: Automated BF WBC Count >200.000 K/mm3 (0-999); RBC Count, Body Fluid 61000 /mm3 (0-0)
--- NOTE | 2024-10-02 16:00 | NUR ---
Update: Patient is resting comfortably, VSS. He is going to take a nap. He denies other needs at this time. Call light in reach.
[2024-10-02 16:29] LABS: Total Cell Count, Body Fluid 100
[2024-10-02 16:32] LABS: Appearance, Body Fluid Turbid (Clear); Color, Body Fluid L Yellow (None-Yellow)
--- NOTE | 2024-10-02 17:40 | NUR ---
Summary: Patient has been alert and oriented x4 T/O the shift. HRR. LS DIM in the bases, he has a coarse PC with thick jesus sputum-culture sent. Patient had two bedside thoracentesis with approx a total of 80ml of purlent drainage out of two loculated pockets. With the second drainage Dr. Meza placed a pigtail drainage in place to oceanseal suction canister. Patient tolerated the procedure well, with minimal discomfort. BT tympanic, he has had multiple liquid brown bowel movements, CT ABD complete. PPP. He has trace edema to BLE and a brownish discoloration to BLE. He was able to get OOB to the recliner for a short time this morning. No other changes this shift. Will report to oncoming RN.
[2024-10-02 19:43] VITALS: BP 122/47
[2024-10-02 23:30] VITALS: BP 121/55
[2024-10-03 04:30] VITALS: BP 136/67
[2024-10-03 05:21] LABS: Bun/Creatinine Ratio 16.8 (12.0-20.0); Calcium, Blood 8.5 mg/dL (8.5-10.1); Creatinine, Blood 1.01 mg/dL (0.60-1.20); Potassium, Blood 3.6 mmol/L (3.5-5.5)
--- NOTE | 2024-10-03 06:55 | NUR ---
EOS: PATIENT REMAINS ALERT AND ORIENTED. ABLE TO MAKE NEEDS KNOWN, PLEASANT, COOEPRATIVE WITH CARE, USES THE CALL LIGHT APPRORPAITELY. 21 mL MORE IN THE OASIS TOTAL OF 88 SINCE SINCE ATTATCHED TO SUCTION. DENEIS CHEST PAIN PRESSURE OR SOB. IMPROVED THROUGHT HE NIGHT FROM 4L TO 2L NC. PATIENT WITH NO ACUTE CONCERNS FROM THIS RN. PLAN OF CARE CONTINUES.
[2024-10-03 08:47] VITALS: BP 137/52
[2024-10-03] MEDS ORDERED: CefTRIAXone Sodium 1,000 MG in NS 100 ML IV ONE (10:00)
[2024-10-03 11:46] VITALS: BP 131/50
[2024-10-03 15:39] VITALS: BP 128/63
--- NOTE | 2024-10-03 18:35 | NUR ---
SHIFT SUMMARY PT A&O X4, CALM, COOPERATIVE TO CARE. PT IN V-PACED RHYTHM IN THE 70'S, SBP STABLE, DENIES CP/PRESSURE, NUMB/TINGLING. L/S DIM T/O, O2 >92% ON 2L VIA NC, PT WITH A LEFT SIDE CHEST TUBE, RED DRAINAGE NOTED. HE DENIES SOB AT THIS TIME. PT TO COMPLETE CHEST CT AND F/U WITH PULMONOGLY IN THE AM. PT TO BEDSIDE COMMODE THIS EVENING FOR BM. BESS CATH IN PLACE, DRAINING TO GRAVITY. PT DENIES QUESTIONS/CONCERNS AT THIS TIME. WILL MONITOR OT AND REPORT TO CONSULTANT IN ERGONOMICS AND SAFETY RN.
[2024-10-03 20:13] VITALS: BP 159/64
--- NOTE | 2024-10-03 22:16 | NUR ---
ASSUMPTION OF CARE ASSUMED CARE OF PATIENT AT 1900. UPON INITIAL ASSESSMENT, PT A&OX4. C/O ABD PAIN. ABD DISTENDED. PRN REGLAN GIVEN AND PRN PAIN MEDS GIVEN, SEE MAR FOR DETAILS. PT ENDORSES RELIEF. VITALLY STABLE AT THIS TIME. VPACED ON TELE. CHEST TUBE IN PLACE. LUNG SOUNDS AUDIBLE BILATERALLY. PT'S NEEDS MET AT THIS TIME.
[2024-10-03 23:48] VITALS: BP 150/66
[2024-10-04 03:59] VITALS: BP 128/60
[2024-10-04 04:27] LABS: Hematocrit 27.9 % (37.0-53.0); Hemoglobin 9.3 g/dL (13.5-17.5); Mean Corpuscular HGB 36.6 pg (26.0-34.0); Mean Corpuscular HGB Conc 33.3 g/dL (31.5-36.5); Mean Corpuscular Volume 110 fL (80-100); Platelet Count 212 K/mm3 (150-400); RDW Coefficient Variation 13.2 % (11.7-14.2); RDW Standard Deviation 52.7 fL (35.1-46.3); Red Blood Cell Count 2.54 M/mm3 (4.30-5.90); White Blood Cell Count 10.99 K/mm3 (4.00-11.30)
[2024-10-04 04:57] LABS: Bun/Creatinine Ratio 14.3 (12.0-20.0); Calcium, Blood 8.5 mg/dL (8.5-10.1); Creatinine, Blood 0.98 mg/dL (0.60-1.20); Potassium, Blood 3.8 mmol/L (3.5-5.5)
--- NOTE | 2024-10-04 05:48 | NUR ---
SHIFT SUMMARY PT HAD OVERALL UNEVENTFUL NIGHT. 4L O2. CHEST TUBE IN PLACE WITH MINIMAL OUTPUT. PRN PAIN MEDS GIVEN PER ORDERS, SEE MAR FOR DETAILS. CT THIS AM.
[2024-10-04 07:32] VITALS: BP 136/53
[2024-10-04] MEDS ORDERED: CefTRIAXone Sodium 2,000 MG in NS 100 ML IV SCH (09:00)
--- NOTE | 2024-10-04 13:05 | NUR ---
PER REPORT CHEST CT COMPLETED EARLY THIS AM. COIL CONNECTOR TO BEDSIDE. CHEST TUBE REMOVED. SITE COVERED WITH BANDAIDE. PT TOLERATED WELL.
[2024-10-04 13:50] VITALS: BP 155/55
[2024-10-04 16:12] VITALS: BP 135/58
--- NOTE | 2024-10-04 17:27 | NUR ---
SHIFT SUMMARY PT A&O X4, CALM, COOPERATIVE TO CARE. HR IN THE 70'S, VENTRICULAR PACED RHYTHM, HE DENIES CP/PRESSURE, NUMB/TINGLING, SBP STABLE. L/S DIM T/O, O2 >92% ON 4L VIA NC, 4L AT BASELINE. PIGTAIL CHEST TUBE REMOVED THIS AM, BANDAIDE IN PLACE. PT DENIES SOB AT REST BUT PRESENT WITH EXERTION. HE WORKED WITH PT TODAY. PT ABLE TO TRANSFER FROM BED TO CHAIR/COMODE WITH 1 PERSON ASSIST WITH FWW AND GAIT BELT. PT TO CONTINUE ABX. PER ORDERS PT TO BE UP IN CHAIR DURING MEALS. PT DENIES QUESTIONS AT THIS TIME. WILL CONTINUE TO MONITOR AND REPORT TO RECYCLING OR RUBBISH COLLECTOR RN.
[2024-10-04 19:36] VITALS: BP 140/67
[2024-10-05 00:11] VITALS: BP 171/68
--- NOTE | 2024-10-05 02:45 | NUR ---
SHIFT SUMMARY PT HAD OVERALL UNEVENTFUL NIGHT. Q2H TURNS. INTERMITTENT BACK PAIN, TREATED PER ORDERS. SEE MAR FOR DETAILS. VITALLY STABLE AT THIS TIME.
[2024-10-05 04:28] VITALS: BP 170/65
[2024-10-05] MEDS ORDERED: HydrALAZINE HCl 20 MG / ML 1ML Vial IV PRN (04:40)
--- NOTE | 2024-10-05 04:40 | NUR ---
RN NOTE PT SBP > 170'S. RN PHONED RESIDENT. PRN HYDRALAZINE 10MG Q6 FOR SBP > 180 ORDERED. NO S/S ACUTE DISTRESS THIS TIME. PT RESTING COMFORTABLY IN BED.
[2024-10-05 05:06] LABS: BASOPHILS ABSOLUTE AUTO 0.02 K/mm3 (0.00-0.23); BASOPHILS PERCENT AUTO 0 % (0-2); EOSINOPHILS PERCENT AUTO 1 % (0-6); Hematocrit 27.3 % (37.0-53.0); Hemoglobin 9.2 g/dL (13.5-17.5); IMMATURE GRAN ABSOLUTE AUTO 0.19 K/mm3 (0.00-0.10); IMMATURE GRAN PERCENT AUTO 2 % (0-1); LYMPHOCYTES ABSOLUTE AUTO 1.18 K/mm3 (0.84-5.20); LYMPHOCYTES PERCENT AUTO 11 % (21-46); MONOCYTES ABSOLUTE AUTO 1.07 K/mm3 (0.16-1.47); MONOCYTES PERCENT AUTO 10 % (4-13); Mean Corpuscular HGB 36.8 pg (26.0-34.0); Mean Corpuscular HGB Conc 33.7 g/dL (31.5-36.5); Mean Corpuscular Volume 109 fL (80-100); NEUTROPHILS PERCENT AUTO 77 % (41-73); Platelet Count 216 K/mm3 (150-400); RDW Coefficient Variation 13.2 % (11.7-14.2); White Blood Cell Count 11.26 K/mm3 (4.00-11.30)
[2024-10-05 05:46] LABS: Bun/Creatinine Ratio 12.1 (12.0-20.0); Calcium, Blood 8.6 mg/dL (8.5-10.1); Creatinine, Blood 0.91 mg/dL (0.60-1.20); Potassium, Blood 3.6 mmol/L (3.5-5.5)
[2024-10-05 07:34] VITALS: BP 136/58
[2024-10-05] MEDS ORDERED: LEVO750 PO (10:03)
[2024-10-05] MEDS ORDERED: VISBIOME 112.51 EACH PO (10:03)
[2024-10-05] MEDS ORDERED: METR500 PO (10:04)
[2024-10-05] MEDS ORDERED: Lidocaine 2% Jelly Uro-Jet UR ONE (10:45)
--- NOTE | 2024-10-05 15:05 | NUR ---
DISCHARGE SUMMARY PT A&O X4, CALM, COOPERATIVE TO CARE. HR IN THE 80'S, V-PACED RHYTHM, DENIED CP/PRESSURE, NUMB/TINGLING, SBP STABLE. L/S DIM T/O, DENIES SOB, MINOR SOB WITH EXERTION, RECOVER WITH DEEP BREATHING. O2 >92% ON 4L VIA NC, 4L AT BASELINE. +BS, PT WITH ABD DISTENTION, HE STATES THIS IS NORMAL FOR HIM. BANDADE IN PLACE OVER CT INSERTION SITE. CT REMOVED 10/04, PT DENIES PAIN. PT WITH CHRONIC INDWELLING BESS CATH. CATH REPLACED THIS SHIFT, YELLOW URINE DRAINING TO GRAVITY. LEGS WRAPPED PER PTS REQUEST. ORDERS FOR D/C RECIEVED. REVIEWED D/C INSTRUCTIONS WITH PT. PT DENIES ANY QUESTIONS OR CONCERNS. SARINA PG REMOVED, PRESSURE APPLIED, DRESSED WITH COBAN AND GAUZE, PT TOLERATED WELL. PT LEFT VIA WHEELCHAIR WITH RN.
[2024-10-08 14:14] LABS: Body Fluid WBC Count > 200000 /mm3 (0-999)
== END 2024-10-05 12:57 | disposition home health service (06) | DRG 871 ==
LOC: ER 06:14 → PCU 08:23
PROVIDERS: Emergency Medicine; Internal Medicine; Student in an Organized Health Care Education/Training Program; ADMIT Internal Medicine
PROC: 3E03329 Introduction of Other Anti-infective into Peripheral Vein, Percutaneous Approach (ICD-10-PCS; 2024-09-29)
PROC: 0W9B3ZZ Drainage of Left Pleural Cavity, Percutaneous Approach (ICD-10-PCS; principal; 2024-10-02)
PROC: 0W9B30Z Drainage of Left Pleural Cavity with Drainage Device, Percutaneous Approach (ICD-10-PCS; 2024-10-02)
DX: A40.9 Streptococcal sepsis, unspecified (principal); J15.4 Pneumonia due to other streptococci; J86.9 Pyothorax without fistula; J96.21 Acute and chronic respiratory failure with hypoxia; J90 Pleural effusion, not elsewhere classified; J44.0 Chronic obstructive pulmonary disease with (acute) lower respiratory infection; I50.32 Chronic diastolic (congestive) heart failure; I13.0 Hypertensive heart and chronic kidney disease with heart failure and stage 1 through stage 4 chronic kidney disease, or unspecified chronic kidney disease; Z99.81 Dependence on supplemental oxygen; E87.6 Hypokalemia; I89.0 Lymphedema, not elsewhere classified; I48.0 Paroxysmal atrial fibrillation; I44.0 Atrioventricular block, first degree; E78.5 Hyperlipidemia, unspecified; D63.1 Anemia in chronic kidney disease; G47.33 Obstructive sleep apnea (adult) (pediatric); G62.9 Polyneuropathy, unspecified; N18.30 Chronic kidney disease, stage 3 unspecified; R10.11 Right upper quadrant pain; Z88.0 Allergy status to penicillin; Z88.8 Allergy status to other drugs, medicaments and biological substances; Z79.02 Long term (current) use of antithrombotics/antiplatelets; Z79.899 Other long term (current) drug therapy; Z85.46 Personal history of malignant neoplasm of prostate; Z85.51 Personal history of malignant neoplasm of bladder; Z90.49 Acquired absence of other specified parts of digestive tract; Z95.0 Presence of cardiac pacemaker; Z87.891 Personal history of nicotine dependence
CPT/HCPCS: 0202U; 32551; 32555; 36415; 51702; 71045; 71250; 71260; 74177; 80048; 80053; 82042; 82945; 83605; 83615; 83735; 83880; 84132; 84145; 84157; 84478; 84484; 85025; 85027; 85379; 85610; 85730; 87040; 87070; 87075; 87184; 87205; 88108; 88305; 89051; 93005; 93010; 94640; 94660; 94664; 94760; 94762; 96360-59; 97110; 97162; 97530; 99285-25; A9270; C1751; J0456; J0696; J2405; J2765; J3010; J3475; J3480; J7030; J7050; Q0177; Q9967

== ENCOUNTER 2024-10-13 15:21 | Inpatient (IN) | payer OTHER ==
[~2024-10-13] VITALS: Ht 180.3 cm; Wt 115.3 kg
[~2024-10-13 15:21] MED LIST changes: -JARDIANCE10 MG; +JARDIANCE10 MG PO; +METR500 PO; +VISBIOME 112.51 EACH PO
[2024-10-13 15:44] LABS: BASOPHILS ABSOLUTE AUTO 0.01 K/mm3 (0.00-0.23); BASOPHILS PERCENT AUTO 0 % (0-2); EOSINOPHILS ABSOLUTE AUTO 0.23 K/mm3 (0.00-0.68); EOSINOPHILS PERCENT AUTO 3 % (0-6); Hematocrit 29.8 % (37.0-53.0); IMMATURE GRAN PERCENT AUTO 1 % (0-1); LYMPHOCYTES ABSOLUTE AUTO 1.14 K/mm3 (0.84-5.20); LYMPHOCYTES PERCENT AUTO 15 % (21-46); MONOCYTES ABSOLUTE AUTO 0.94 K/mm3 (0.16-1.47); MONOCYTES PERCENT AUTO 12 % (4-13); Mean Corpuscular HGB 36.2 pg (26.0-34.0); Mean Corpuscular HGB Conc 33.6 g/dL (31.5-36.5); Mean Corpuscular Volume 108 fL (80-100); Mean Platelet Volume 9.9 fL (9.1-12.4); NEUTROPHILS ABSOLUTE AUTO 5.42 K/mm3 (1.96-9.15); NEUTROPHILS PERCENT AUTO 69 % (41-73); Platelet Count 155 K/mm3 (150-400); RDW Coefficient Variation 13.4 % (11.7-14.2); RDW Standard Deviation 52.7 fL (35.1-46.3); Red Blood Cell Count 2.76 M/mm3 (4.30-5.90); White Blood Cell Count 7.84 K/mm3 (4.00-11.30)
[2024-10-13 16:05] LABS: Albumin, Blood 2.7 g/dL (3.4-5.0); Albumin/Globulin Ratio 0.6 (0.8-1.8); Bilirubin, Total 0.5 mg/dL (0.1-1.0); Bun/Creatinine Ratio 11.5 (12.0-20.0); Calcium, Blood 8.8 mg/dL (8.5-10.1); Creatinine, Blood 3.56 mg/dL (0.60-1.20); Globulin, Blood 4.5 g/dL (2.2-4.0); Potassium, Blood 3.3 mmol/L (3.5-5.5); Total Protein, Blood 7.2 g/dL (6.4-8.2)
[2024-10-13] MEDS ORDERED: FLU VACC TS2024-25(6MOS UP)/PF 45 MCG/0.5 ML SYRINGE IM SCH (18:00)
[2024-10-13] MEDS ORDERED: Albuterol 2.5 MG/3 ML VIAL INH PRN (18:45)
[2024-10-13] MEDS ORDERED: Baclofen 10 MG Tab PO PRN (18:45)
[2024-10-13] MEDS ORDERED: LevoFLOXacin 500 MG Tab PO SCH (18:45)
[2024-10-13] MEDS ORDERED: Nitroglycerin 0.4 MG SUBL SL PRN (18:50)
[2024-10-13] MEDS ORDERED: NS KCl 20mEq 1,000 ML IV SCH (19:00)
[2024-10-13] MEDS ORDERED: Diclofenac Sodium 100 GM TUBE TOP PRN (19:30)
[2024-10-13] MEDS ORDERED: Mometasone Furoate Inhaler 220 mcg 14 ACT INH SCH (19:30)
[2024-10-13] MEDS ORDERED: Ipratropium/Albuterol SulF 2.5-0.5MG/3 ML Amp INH SCH (19:30)
[2024-10-13 20:04] LABS: Albumin, Blood 2.3 g/dL (3.4-5.0); Anion Gap 13 mmol/L (3-11); Blood Urea Nitrogen 42 mg/dL (8-24); Bun/Creatinine Ratio 12.1 (12.0-20.0); CO2, Blood 21 mmol/L (21-32); Calcium, Blood 8.5 mg/dL (8.5-10.1); Chloride, Blood 104 mmol/L (98-108); Creatinine, Blood 3.48 mg/dL (0.60-1.20); Glomerular Filtration Rate 17 (60-); Glucose, Blood 109 mg/dL (70-99); Phosphorus, Blood 4.4 mg/dL (2.5-4.9); Sodium, Blood 135 mmol/L (136-145)
[2024-10-13] MEDS ORDERED: Brimonidine Tartrate 0.2% Opth 5 ml LEFTEYE SCH (21:00)
[2024-10-13] MEDS ORDERED: MetroNIDAZOLE 500 MG Tab PO SCH (21:00)
[2024-10-13] MEDS ORDERED: Gabapentin 100 MG Cap PO SCH (21:00)
[2024-10-13] MEDS ORDERED: Atorvastatin 40 MG Tab PO SCH (21:00)
[2024-10-13] MEDS ORDERED: Latanoprost 0.005% Opth Soln 2.5 ML LEFTEYE SCH (21:00)
[2024-10-13] MEDS ORDERED: Tamsulosin HCl 0.4 MG Cap PO SCH (21:00)
[2024-10-13] MEDS ORDERED: Cilostazol 50 MG Tab PO SCH (21:00)
[2024-10-13] MEDS ORDERED: Docusate Sodium 100 MG Cap PO SCH (21:00)
[2024-10-13] MEDS ORDERED: Lactobacil 2-S.Thermo-Bifido 1 1 Cap PO SCH (21:00)
[2024-10-13] MEDS ORDERED: Dorzolamide 2% Opth Soln LEFTEYE SCH (21:00)
[2024-10-13 21:33] VITALS: BP 124/49
[2024-10-14] MEDS ORDERED: Melatonin 3 MG Tab PO PRN (00:25)
[2024-10-14 04:53] VITALS: BP 120/49
[2024-10-14 04:57] LABS: BASOPHILS ABSOLUTE AUTO 0.02 K/mm3 (0.00-0.23); BASOPHILS PERCENT AUTO 0 % (0-2); EOSINOPHILS ABSOLUTE AUTO 0.26 K/mm3 (0.00-0.68); EOSINOPHILS PERCENT AUTO 5 % (0-6); Hemoglobin 8.6 g/dL (13.5-17.5); IMMATURE GRAN ABSOLUTE AUTO 0.06 K/mm3 (0.00-0.10); IMMATURE GRAN PERCENT AUTO 1 % (0-1); LYMPHOCYTES ABSOLUTE AUTO 0.85 K/mm3 (0.84-5.20); LYMPHOCYTES PERCENT AUTO 16 % (21-46); MONOCYTES ABSOLUTE AUTO 0.69 K/mm3 (0.16-1.47); MONOCYTES PERCENT AUTO 13 % (4-13); Mean Corpuscular HGB 36.6 pg (26.0-34.0); Mean Corpuscular HGB Conc 34.4 g/dL (31.5-36.5); Mean Corpuscular Volume 106 fL (80-100); Mean Platelet Volume 9.9 fL (9.1-12.4); NEUTROPHILS ABSOLUTE AUTO 3.36 K/mm3 (1.96-9.15); NEUTROPHILS PERCENT AUTO 64 % (41-73); Platelet Count 134 K/mm3 (150-400); RDW Coefficient Variation 13.5 % (11.7-14.2); RDW Standard Deviation 52.5 fL (35.1-46.3); Red Blood Cell Count 2.35 M/mm3 (4.30-5.90); White Blood Cell Count 5.24 K/mm3 (4.00-11.30)
[2024-10-14 05:23] LABS: Albumin, Blood 2.1 g/dL (3.4-5.0); Albumin/Globulin Ratio 0.6 (0.8-1.8); Bilirubin, Total 0.7 mg/dL (0.1-1.0); Bun/Creatinine Ratio 12.5 (12.0-20.0); Calcium, Blood 8.4 mg/dL (8.5-10.1); Creatinine, Blood 3.04 mg/dL (0.60-1.20); Globulin, Blood 3.5 g/dL (2.2-4.0); Magnesium, Blood 1.5 mg/dL (1.6-2.4); Potassium, Blood 3.3 mmol/L (3.5-5.5); Total Protein, Blood 5.6 g/dL (6.4-8.2)
[2024-10-14] MEDS ORDERED: Pantoprazole Sodium 40 MG Tab PO SCH (07:30)
--- NOTE | 2024-10-14 07:42 | NUR ---
SHIFT SUMMARY (STATISTICAL PROGRAMMER) ADMITTED TO ROOM 303 OVERNIGHT DUE TO INCREASED LEG EDEMA AND DX RENAL INSUFFICIENCY ,BAG OF ORDERED IVF AT 125ML PER HR WAS COMPLETED ,URINE CLEAR YELLOW & OVER 1500 ML OUTPUT (CHRONIC BESS D/T RETENTION) URINE COLOR WAS MUCH DARKER AT HOME PER PT, CALLED HIS & DAUGHTER TO UPDATE THEM, ALERT AND ORIENTED X 3 TO 4,PLEASANT,CALM,COOPERATIVE, LG LOOSE STOOL X1 BEDPAN D/T REPORTS UNABLE TO STAND LATELY DUE TO LEG SWELLING & WEAKNESS, DIASTOLIC ON THE LOW SIDE EARLY THIS MORNING(40s) OTHERWISE VSS. LE WITH INTACT BANDAGES CHANGED WEEKLY AT IN CLINIC, BESS WAS NOT CHANGED IN THE ED WAS IN HOSPITAL WITH PNEUMONIA ABOUT A WEEK AGO AND IT WAS CHANGED AT THAT TIME.
[2024-10-14 07:48] VITALS: BP 119/49
[2024-10-14] MEDS ORDERED: Potassium Chloride 20 MEQ TabCR PO ONE (08:00)
[2024-10-14] MEDS ORDERED: Finasteride 5 MG Tab PO SCH (09:00)
[2024-10-14] MEDS ORDERED: Ferrous Gluconate 325 MG Tablet PO SCH (09:00)
[2024-10-14] MEDS ORDERED: Heparin Sodium 5000 Units/ML 1ML MDV SC SCH (09:00)
[2024-10-14] MEDS ORDERED: Clopidogrel Bisulfate 75 MG Tab PO SCH (09:00)
[2024-10-14] MEDS ORDERED: Atenolol 25 MG Tab PO SCH (09:00)
[2024-10-14] MEDS ORDERED: Empagliflozin 10 MG TAB PO SCH (09:00)
[2024-10-14] MEDS ORDERED: Acetaminophen 325 MG TABLET PO PRN (11:50)
[2024-10-14] MEDS ORDERED: OxyCODONE HCL 5 MG TAB PO PRN (13:20)
[2024-10-14 15:56] VITALS: BP 148/61
[2024-10-14] MEDS ORDERED: Famotidine 20 MG Tab PO SCH (16:00)
[2024-10-14] MEDS ORDERED: Prochlorperazine Edisylate 10 mg Vial IV PRN (16:00)
--- NOTE | 2024-10-14 17:45 | NUR ---
PT ALERT AND ORIENTED X4, VSS, RA. COMPLAINS OF PAIN IN HIP AND LEGS, OXYCODONE ORDERED AND EFFECTIVE FOR A FEW HOURS. BED BOUND PER BASELINE. BANDAGES TO BLE [facility] PLACE [facility], PT REFUSED CHANGE OF DRESSING. SMALL BM IN BEDPAN, CHRONIC BESS IN PLACE DRAINING CLEAR YELLOW URINE. ABLE TO MAKE NEEDS KNOWN, CALL LIGHT IN REACH.
[2024-10-14] MEDS ORDERED: Ipratropium/Albuterol SulF 2.5-0.5MG/3 ML Amp INH SCH (19:30)
[2024-10-14 19:42] VITALS: BP 117/52
[2024-10-14] MEDS ORDERED: Sennosides 8.6 MG Tab PO SCH (21:00)
[2024-10-15 04:23] VITALS: BP 120/52
--- NOTE | 2024-10-15 04:44 | NUR ---
SHIFT SUMMARY A&OX4,SLIGHTLY FORGETFUL, SOMEWHAT PALE, GOOD CAP REFILL OF NAILBEDS UEs (YOUNG TOES COVERED) LEGS WRAPPED FROM BELOW KNEE TO BOTTOM OF FEET:DRESSINGS CLEAN,DRY& INTACT (CHANGED @ [facility] WEEKLY) ,GENERALIZED EDEMA NOTED WATCH ON LT WRISY VERY TIGHT & WAS REMOVED WITH DIFFICULTY. ABDOMEN MUCH MORE DISTENDED THAN YESTERDAY, GROUP HOME SUPERVISOR NOTIFIED OF THIS WELL SEVERE ADB DISTENTION W/SLIGHT SHORTNESS OF BREATH 02 SAT 95 %ON R/A.O2 PLACED PER PT REQUEST AND HELPFUL PER PT(1 L/M VIA NC). ATE A FEW BITES OF DINNER THEN C/O NAUSEA, PRN COMPAZINE X1 THIS SHIFT & WAS EFFECTIVE, HS MEDS WERE OVER 2 HRS LATE DUE TO NAUSEA. WAS MEDICATED FOR PAIN ONCE WITH PRN OXYCODONE & TYLENOL FOR SEVERE PAIN IN LEGS & WAS VERY EFFECTIVE PER PT,DICUSSED RISK FOR CONSTIPATION WITH OPIOID PAIN MED-TOOK SENNA &COLACE AT HS FLUIDS ENCOURAGED W/A. REPOSITIONED NEEDED, BESS DRAINING QS URINE WAS CL MADALYN LAST NIGHT NOW CL YELLOW THIS AM. STATES SLEPT WELL OVERALL, REFUSED HS EYE GTTS STATES NO LONGER NEEDS SINCE CATARACT SURGERY ABOUT 2 YRS AGO. VSS , BP 120/52 (DIASTOLIC NOT LOW PREVIOUS NIGHT), LABS DRAWN BY LAB THIS A.M.
[2024-10-15 04:50] LABS: BASOPHILS ABSOLUTE AUTO 0.02 K/mm3 (0.00-0.23); BASOPHILS PERCENT AUTO 0 % (0-2); EOSINOPHILS ABSOLUTE AUTO 0.17 K/mm3 (0.00-0.68); EOSINOPHILS PERCENT AUTO 3 % (0-6); Hematocrit 25.7 % (37.0-53.0); Hemoglobin 8.6 g/dL (13.5-17.5); IMMATURE GRAN ABSOLUTE AUTO 0.05 K/mm3 (0.00-0.10); IMMATURE GRAN PERCENT AUTO 1 % (0-1); LYMPHOCYTES ABSOLUTE AUTO 0.81 K/mm3 (0.84-5.20); LYMPHOCYTES PERCENT AUTO 15 % (21-46); MONOCYTES ABSOLUTE AUTO 0.79 K/mm3 (0.16-1.47); MONOCYTES PERCENT AUTO 14 % (4-13); Mean Corpuscular HGB 35.7 pg (26.0-34.0); Mean Corpuscular HGB Conc 33.5 g/dL (31.5-36.5); Mean Corpuscular Volume 107 fL (80-100); Mean Platelet Volume 9.9 fL (9.1-12.4); NEUTROPHILS ABSOLUTE AUTO 3.72 K/mm3 (1.96-9.15); NEUTROPHILS PERCENT AUTO 67 % (41-73); Platelet Count 147 K/mm3 (150-400); RDW Coefficient Variation 13.5 % (11.7-14.2); RDW Standard Deviation 52.6 fL (35.1-46.3); Red Blood Cell Count 2.41 M/mm3 (4.30-5.90); White Blood Cell Count 5.56 K/mm3 (4.00-11.30)
[2024-10-15 05:34] LABS: Calcium, Blood 8.5 mg/dL (8.5-10.1); Creatinine, Blood 2.53 mg/dL (0.60-1.20); Potassium, Blood 3.6 mmol/L (3.5-5.5)
[2024-10-15 08:02] VITALS: BP 106/49
[2024-10-15] MEDS ORDERED: NS 1,000 ML IV SCH (12:35)
[2024-10-15] MEDS ORDERED: Magnesium Sulf 2 GM/Water 50ML 50 ML IV ONE (12:40)
[2024-10-15] MEDS ORDERED: NS 250 ML IV PRN (13:35)
[2024-10-15 15:07] VITALS: BP 119/68
--- NOTE | 2024-10-15 15:25 | NUR ---
SHIFT SUMMARY- PT ALERT AND ORIENTED, BESS CATH IN PLACE PATENT AND DRAINING TO GRAVITY. PT HAS HAD C/O BACK AND LEG PAIN, MEDICATED WITH OXY/TYLENOL AND BACLOFEN, HE STATES THE PAIN HAS IMPROVED A LITTLE. PT HAS DRESSINGS IN PLACE BELOW THE KNEE BILATERALLY, THE DRESSINGS ARE CHANGED WEEKLY AT THE DC. PT DECLINES TO HAVE STAFF REMOVE THEM. UNKNOWN WHAT LIES BENEATH THE DRESSINGS. PEDAL PULSES ARE OBSTRUCTED BY THE DRESSINGS. PT IS BED BOUND, HOWEVER HE AND HIS FAMILY STATE HE WAS AMBULATORY 2 MONTHS AGO. ABDOMEN IS DISTENDED FIRM AND ROUND, NON-TENDER TO PALPATION, HOLLOW SOUNDING ON PERCUSSION. PT STATES THIS AM HE HAS HAD LOOSE STOOLS AND DECLINED THE LAXATIVE BUT DID TAKE THE DOCUSATE. PT HAS HAD NO STOOLS YET THIS SHIFT. IVF STARTED AGAIN TODAY AT 75ML/HR, IV MAG RUNNING CONCURRENTLY WITH THAT. PT IN BED, CALL LIGHT IN REACH, HE CAN CALL APPROPRIATELY, NO S&S OF DISTRESS AT THIS TIME, LUNGS ARE DIM IN THE MID AND LOWER LOBES, MORE DIM ON THE LEFT THAN THE RIGHT. PT ON 1L O2 VIA NC. WILL PASS ON IN BEDSIDE REPORT.
--- NOTE | 2024-10-15 18:06 | NUR ---
CALLED DR LYNN- PT RECIEVED A FULL BED BATH, DRESSINGS TO BLE WERE NOTED TO BE SOILED AND STAFF SPOKE TO THE PT ABOUT REMOVING THEM AT THIS TIME. THE PT WAS AGREEABLE. DRESSINGS WERE REMOVED, NOTED MULTIPLE NON-BLANCHING AREAS OF PRESSURE FROM THE WRAPS AND THAT WERE COVERED BY THE WRAPS. NON STAGABLE PRESSURE SORES PRESEENT WELL STAGE 2-3 ON THE OUTSIDE OF THE LEFT FOOT (SLOUGH PRESENT DIFFICULT TO TELL DEPTH. PT HAS REDNESS IN THE GROIN, AND ON THE COCCYX, CLEANED AND DRIED THE AREA, APPLIED THIN COAT OF BABY POWDER TO FOLDS, AND MEPILEX TO THE COCCYX. CALLED DR MERCEDES HE IS AWARE, COVERED OPEN WOUNDS WITH MEPILEX AND ELEVATED BOTH LEGS ON PILLOWS. RECIEVED AN ORDER FOR MICONAZOLE CREAM FOR THE RED GROIN AREAS. MD AWARE OF THE WOUNDS, PHOTOS PLACED IN THE CHART. MD WILL SEE THEM TOMORROW.
[2024-10-15] MEDS ORDERED: LevoFLOXacin 750 MG Tab PO SCH (21:00)
[2024-10-15] MEDS ORDERED: Miconazole Nitrate 28 GM CREAM..G. TOP SCH (21:00)
[2024-10-15 22:49] VITALS: BP 121/50
[2024-10-16 04:06] VITALS: BP 133/54
--- NOTE | 2024-10-16 06:06 | NUR ---
SHIFT SUMMARY A&OX4, COOPERATIVE AND FRIENDLY,VERBALIZED SAD IS IN HOSPITAL FOR JORGE, NS INFUSING AT 75ML/HR, DENIES ANY LEG PAIN REPORTS LEGS FEEL MUCH BETTER SINCE WRAPS WERE REMOVED PREVIOUS SHIFT. LEGS ELEVATED ON PILLOWS & HEELS OFF PRESSURE. ABD REMAINS EXTREMELY DISTENDED,TOOK SENNA& COLACE, ADEQUATE PO FLUID INTAKE, STATED DIDNT REMEMBER HAVING DINNER BUT REMEMBERS BREAKFAST & LUNCH, DRANK 2/3 OF A VANILLA ENSURE ,MOUTH DRY AND SORE THROAT TYLENOL X1-EFEFCTIVE, FREQ SIPS WATER, LIP MOISTURIZER ,02 ON AT 2L/MVIA NC,LG BESS OUTPUT , COUGHING & SOMEWHAT MORE SOB THIS A.M. RT CALLED, ,INDIGESTION-PPE GIVEN EARLY, DENIES NAUSEA. ,NO BM,
[2024-10-16 07:12] VITALS: BP 145/53
[2024-10-16 07:36] LABS: Bun/Creatinine Ratio 14.8 (12.0-20.0); Calcium, Blood 8.2 mg/dL (8.5-10.1); Creatinine, Blood 1.69 mg/dL (0.60-1.20); Free Thyroxine 1.27 ng/dL (0.70-1.60); Magnesium, Blood 1.7 mg/dL (1.6-2.4); Potassium, Blood 3.5 mmol/L (3.5-5.5)
[2024-10-16] MEDS ORDERED: Famotidine 20 MG Tab PO SCH (09:00)
[2024-10-16 15:35] VITALS: BP 132/57
[2024-10-16] MEDS ORDERED: Simethicone 80 MG Chew PO PRN (15:35)
[2024-10-16 16:12] LABS: Percent Saturation 37.7 % (20.0-50.0)
--- NOTE | 2024-10-16 17:39 | NUR ---
SHIFT SUMMARY PT AOX4, BR AT THIS TIME. LEGS LOOKS MUCH IMPROVED. BESS IN PLACE, PATENT, AND DRAINING YELLOW URINE. MEDICATED FOR PAIN PER THE EMAR. REPOSITIONED THROUGHOUT THE SHIFT. NO EVENTS PER TELE. MULTIPLE FAMILY MEMBERS AT THE BS THIS SHIFT. PT CALLS AND MAKES HIS NEEDS KNOWN. POSSIBLE DC TOMORROW. CALL LIGHT WITHIN REACH, BED LOCKED AND IN THE LOWEST POSITION. WILL REPORT TO ONCOMING NURSE.
[2024-10-16 19:35] VITALS: BP 138/66
[2024-10-17 04:46] VITALS: BP 125/57
--- NOTE | 2024-10-17 05:11 | NUR ---
SHIFT SUMMARY PT ALERT AND ORIENTED TIMES 4. PT IS CURRENTLY ON 4L O2. PT TOOK HS MEDICATION AND TOLERATED WELL. PT APPEARED TO SLEEP ON AND OFF THROUGH THE NIGHT. PT HAS CHRONIC BESS CATHETER., DRAINING WELL STATED HE FELT NAUSOUS AND WAS GIVEN IV ZOFRAN. HELD MEDICATION UNTIL HE FELT BETTER AND FOLLOWED UP EVERY HOUR. PT DID TAKE MEDICATION AND WAS ABLE TO KEEP IT DOWN. PT REQUESTED TO USE A C-PAP MACHINE, HE DOES CURRENTLY USE AT HOME. CONTACTED [employer] AND WAS TOLD THAT THEY CURRENTLY DO NOT HAVE ANYTHING BUT A BI-PAP AND PT MIGHT DC 10/17. INCREASED O2 TO 4 L. PT STATED THAT IT FELT BETTER AT THIS LEVEL. WILL CONTINUE TO MONITOR PT O2 LEVELS. BED IN LOW POSITION, CALL LIGHT WITHIN REACH, RAILS TIMES 2.
[2024-10-17 07:30] VITALS: BP 110/70
[2024-10-17 14:41] VITALS: BP 137/68
[2024-10-17] MEDS ORDERED: Bisacodyl 10 MG Supp PR ONE (16:00)
[2024-10-17] MEDS ORDERED: Bisacodyl 10 MG Supp PR PRN (16:00)
--- NOTE | 2024-10-17 16:09 | NUR ---
ABD DISTENTION: PT ABDOMEN FIRM AND TENDER. PT HAS NO APPETITE. NO BM FOR 2 DAYS. PT NAUSEATED. ALSO HAVING SORE THROAT WHEN SWALLOWING FOOD AND MEDS. SMALL YELLOW DOTS SEEN ON BACK OF THROAT. PT WOULD ALSO LIKE ORDER FOR HOME CPAP. MD NOTIFIED AND NEW ORDERES ENTERED. PT HAD XRAY OF ABDOMEN, PENDING. SUPPOSITORY GIVEN. STARTED ON MYCELEX LOZENGES. HOME CPAP ORDERED.
[2024-10-17] MEDS ORDERED: Clotrimazole 10 MG Troche MT SCH (17:00)
--- NOTE | 2024-10-17 19:21 | NUR ---
PT MOVED FROM ROOM 303 TO 325 FOR LIFT ASSISTANCE. PT A=O AND STABLE. PT HAS POOR APPETITE, SEVERE ABD DISTENTION AND COMPLAINTS OF SOB AND REFLUX. ABD XRAY THIS AFTERNOON COMPLETED. SUPPOSITORY GIVEN PER ORDERS. PT HAD EMESIS X1 THIS SHIFT. CONT IV FLUIDS. CHRONIC BESS DRAINING YELLOW URINE WITH EVIDENCED SEDIMENT. PT HAS CHRONIC ULCERS TO BL HEELS WITH DRESSINGS CHANGED YESTERDAY. NO DRAINAGE, FLOATING HEELS. EXCORIATION TO SCROTUM AND BUTTOCKS. BARRIER CREAM AND ANTIFUNGAL IN USE. PT HAS BEDBATH TODAY WITH CATH CARE. PT SATS STABLE ON 2-3L O2. HOME CPAP IN USE. PLAAN FOR REHAB AT DISCHARGE.
[2024-10-17 20:52] VITALS: BP 130/66
[2024-10-18 04:20] VITALS: BP 140/60
--- NOTE | 2024-10-18 05:17 | NUR ---
A&OX4, COOPERATIVE W/CARES, VSS, EX LG BM THIS SHIFT, MARIA ALEJANDRA PATENT DRAINING YELLOW, REPOS Q2 PATIENT ALLOWED, PT REFUSED HOME CPAP AND WORE NC THROUGH THE NIGHT, SLEEPING AT THIS TIME, CALL LIGHT IN REACH, WILL CONT TO MONITOR UNTIL REPORT GIVEN TO ONCOMING NURSE.
[2024-10-18 06:01] LABS: Bun/Creatinine Ratio 13.8 (12.0-20.0); Calcium, Blood 8.7 mg/dL (8.5-10.1); Creatinine, Blood 1.09 mg/dL (0.60-1.20); Potassium, Blood 3.4 mmol/L (3.5-5.5)
[2024-10-18 07:45] VITALS: BP 139/59
[2024-10-18] MEDS ORDERED: Famotidine 20 MG Tab PO SCH (09:00)
[2024-10-18 15:38] VITALS: BP 148/59
--- NOTE | 2024-10-18 16:27 | NUR ---
SHIFT SUMMARY PATIENT HAD A LARGE BOWEL MOVEMENT AROUND NOON, STATES STILL FEELING NAUSEAS CONSISTENTLY BUT BETTER THAN YESTERDAY. PRN COMPAZINE GIVEN. PATIENT BEING REPOSITIONED IN BED, DOES NOT LIKE HOB DOWN, SO SITS UP HOB ELEVATED WHILE REPOSITIONED WITH PILLOWS ON SIDE. HEELS ELEVATED WITH PILLOWS. PRN OXY GIVEN X1. APPETITE POOR, NO VOMITING TODAY BUT COUGHING UP PHLEGM. CASE MANAGEMENT WORKING ON SNF PLACEMENT. FAMILY VISITING TODAY UPDATED ON PLAN. PATIENT ABLE TO MAKE NEEDS KNOWN, CALL LIGHT IN REACH. HOME CPAP AT BEDSIDE. 2L NC MAINTATING SATS ABOVE 92%.
[2024-10-18 20:12] VITALS: BP 135/57
[2024-10-19 02:09] VITALS: BP 142/73
--- NOTE | 2024-10-19 05:46 | NUR ---
SHIFT SUMMARY ABDOMEN SEVERELY DISTENDED, PT STATES LARGE BM EARLIER IN THE DAY, C/O SOME ABDOMINAL PAIN AND INDEGESTION- MEDICATED PER EMAR WITH OXYCODONE AND SIMETHICONE. MEDICATED FOR GENERALIZED BODY PAIN PER EMAR WITH TYLENOL AND BACLOFEN. PT REPOSITIONED THROUGH THE NIGHT, BUT PT RESISTENT TO LAY ON SIDE OR HAVE HEAD OF BED DOWN. HEELS ELEVATED OFF OF BED. PT REFUSING TO USE CPAP DURING THE NIGHT. 2L NC IN PLACE WITH SATS >92% PER CONTINUOUS PULSE OX. CHRONIC BESS DRAINING DARK YELLOW URINE WITH SEDIMENT. PT SLEPT SHORT PERIODS THROUGH THE NIGHT. BED IN LOWEST POSITION, CALL LIGHT WITHIN REACH, SIDE RAILS UP X3.
--- NOTE | 2024-10-19 06:47 | NUR ---
PILE HEADER CALLED AT 0641. PT WITH 25 BEATS OF V-TACH FOLLOWED BY USUAL V-PACING. PT ASYMPTOMATIC.
[2024-10-19 07:33] VITALS: BP 143/63
[2024-10-19 15:47] VITALS: BP 155/68
--- NOTE | 2024-10-19 17:05 | NUR ---
SHIFT SUMMARY: PATIENT A/OX4, PLEASANT AND COOPERATIVE c CARE. PATIENT DENIES CP/PRESSURE, SOB, N/V AND DIZZINESS. PATIENT WAS ON TELE V-PACED IN THE HIGH 60'S BPM, TELE DC'D PER ORDER. PATIENT HAS EDEMA TO BUE/BLE'S. PATIENT ON 2L O2 VIA NC SATTING 95-100%. PATIENT HAS GOOD APPETITE, CHRONIC BESS FOR RETENTION, PATENT DRAINING DARK YELLOW URINE c MOD SEDIMENTS. DRESSING CHANGED TO COCCYX, REPOSITIONED, BUE/BLE'S ELEVATED ON PILLOWS. PATIENT RECEIVED SCHEDULED MEDS PER EMAR. VITAL SIGNS REVIEWED. CALL LIGHT IN REACH.
[2024-10-19 19:48] VITALS: BP 141/61
[2024-10-20 04:19] VITALS: BP 165/63
--- NOTE | 2024-10-20 05:48 | NUR ---
SHIFT SUMMARY PT SLEPT LONG INTERVALS THROUGH THE NIGHT. REFUSING TO WEAR CPAP AGAIN TONIGHT. CONTINOUS PULSE OX WITH SATS MID 90'S ON 2L NC. THIS EARLY AM PT REQUESTING O2 BE INCREASED TO 3L, WHICH IS WHAT HE USES AT HOME. REPOSITIONED PT ABLE THROUGH THE NIGHT. PT UNABLE TO HAVE HEAD OF BED LOW FOR LONG PERIODS SECONDARY TO FEELING THAT HE CANNOT CATCH HIS BREATH. CHRONIC BESS DRAINING DARK YELLOW URINE WITH SEDIMENT. BED IN LOWEST POSITION, CALL LIGHT WITHIN REACH, SIDE RAILS UP X3.
[2024-10-20 07:40] VITALS: BP 154/62
[2024-10-20] MEDS ORDERED: Sod Phosphate/Sod Biphosphate 132 ML BTL PR ONE (09:50)
[2024-10-20] MEDS ORDERED: Polyethylene Glycol 3350 17 gm PO SCH (10:00)
[2024-10-20 11:38] LABS: Hematocrit 28.7 % (37.0-53.0); Hemoglobin 9.5 g/dL (13.5-17.5); Mean Corpuscular HGB Conc 33.1 g/dL (31.5-36.5); Mean Corpuscular Volume 109 fL (80-100); Mean Platelet Volume 10.2 fL (9.1-12.4); Platelet Count 146 K/mm3 (150-400); RDW Coefficient Variation 14.2 % (11.7-14.2); RDW Standard Deviation 56.3 fL (35.1-46.3); Red Blood Cell Count 2.64 M/mm3 (4.30-5.90); White Blood Cell Count 4.53 K/mm3 (4.00-11.30)
[2024-10-20 11:52] LABS: Albumin, Blood 2.1 g/dL (3.4-5.0); Anion Gap 10 mmol/L (3-11); Blood Urea Nitrogen 11 mg/dL (8-24); Bun/Creatinine Ratio 11.7 (12.0-20.0); CO2, Blood 21 mmol/L (21-32); Calcium, Blood 9.1 mg/dL (8.5-10.1); Chloride, Blood 115 mmol/L (98-108); Creatinine, Blood 0.94 mg/dL (0.60-1.20); Glomerular Filtration Rate 80 (60-); Glucose, Blood 105 mg/dL (70-99); Magnesium, Blood 1.4 mg/dL (1.6-2.4); Phosphorus, Blood 3.9 mg/dL (2.5-4.9); Potassium, Blood 3.4 mmol/L (3.5-5.5); Sodium, Blood 143 mmol/L (136-145)
[2024-10-20] MEDS ORDERED: Magnesium Sul 4 GM/Water100 ML 100 ML IV ONE (12:35)
[2024-10-20] MEDS ORDERED: Potassium Chloride 20 MEQ TabCR PO ONE (13:00)
[2024-10-20] MEDS ORDERED: Lactulose 20 GM/30 ML UDC PO SCH (13:00)
[2024-10-20 14:44] VITALS: BP 145/62
--- NOTE | 2024-10-20 18:21 | NUR ---
SHIFT SUMMARY: PATIENT A/OX3-4, PLEASANT AND COOPERATIVE c CARE. PATIENT DENIES CP/PRESSURE, SOB, N/V AND DIZZINESS. PATIENT HAS EDEMA TO BUE/BLE'S. PATIENT HAS SEVEVRE ABDOMINAL DISTENTION, REPORTS NOT BEEN ABLE TO PASS GAS, NOTIFIED DR. LYNN REGARDING THIS CONCERNED, ORDERED ENEMA, MIRALAX AND LACTULOSE. DR. BAKER (GENERAL SURGEON) CONSULTED FOR LARGE BOWEL OBSTRUCTION, CAME IN SPOKE c PATIENT AND SPOUSE c PLAN OF CARE. PATIENT AND SPOUSE VERBALIZED UNDERSTANDING AND NO FURTHER QUESTIONS. PATIENT RECEIVED OT DOSE OF ENEMA c GOOD RESULT. PATIENT HAD LARGE UNFORMED BROWN, BM. PATIENT ALSO RECEIVED OT DOSE OF IV MAG SULFATE AND PO K PER ORDER. PATIENT BESS, PATENT DRAINING DARK YELLOW URINE c MOD SEDIMENTS TO GRAVITY. PATIENT RECEIVED BEDBATH, LINEN CHANGED, REPOSITIONED AND BUE/BLE'S ELEVATED ON PILLOWS T/O SHIFT. VITAL SIGNS REVIEWED. BED IN LOWEST POSITIONED. CALL LT IN REACH.
[2024-10-20 19:59] VITALS: BP 139/59
--- NOTE | 2024-10-21 01:22 | NUR ---
AT 0030, PT REQUESTING TO SIT AT EDGE OF BED, "I NEED MY FEET TO BE ABLE TO TOUCH THE GROUND. I'VE BEEN LYING IN BED FOR TOO MANY DAYS." ASSISTED PT TO SIT AT EDGE OF BED. TOLERATED FOR ABOUT 15 MINUTES EXCEPT FOR PT STATING "I FEEL LIKE I CAN'T CATCH MY BREATH". CONTINUOUS PULSE OX SHOWED O2 SATS 94-97%. PT C/O NAUSEA AND INDEGESTION WHEN BACK TO BED. BEFORE COMPAZINE COULD BE ADMINISTERED, PT WITH APPROX 150ML WATERY BROWN-COLORED EMESIS. COMPAZINE GIVEN. WHEN NAUSEA IMPROVED PO SIMETHICONE GIVEN. ENCOURAGED PT TO TAKE ONLY SMALL AMOUNTS OF LIQUIDS. ABD REMAINS SEVERELY DISTENDED WITH TYMPANIC, HYPERACTIVE BOWEL SOUNDS. THIS RN TALKED WITH PT ABOUT THE POSSIBLE NEED TO DECOMPRESS STOMACH WITH NGT. PT STATES, "I WILL REFUSE THAT".
[2024-10-21 05:14] VITALS: BP 139/59
--- NOTE | 2024-10-21 05:31 | NUR ---
SHIFT SUMMARY PT CONTINUES TO HAVE SEVERELY DISTENDED ABDOMEN WITH HYPERACTIVE, TYMPANIC BOWEL SOUNDS, AND C/O NAUSEA. PT WITH ONE EPISODE OF EMESIS- SEE PRIOR NOTE. PT WITH SMALL AMOUNT OF FLATUS, NO BM. MEDICATED WITH COMPAZINE X2 AND SIMETHICONE- SEE EMAR. PT CONTINUES TO USE O2 AT 2L NC- REFUSING CPAP THROUGH THE NIGHT. CONTINUOUS PULSE OX WITH SATS IN THE MID 90'S. CHRONIC BESS DRAINING DARK YELLOW URINE WITH SEDIMENT. BED IN LOWEST POSITION, CALL LIGHT WITHIN REACH, SIDE RAILS UP X3.
[2024-10-21 07:15] VITALS: BP 142/61
[2024-10-21] MEDS ORDERED: MetroNIDAZOLE 500MG/NS 100 ml 100 ML IV SCH (08:20)
[2024-10-21 08:48] LABS: BASOPHILS ABSOLUTE AUTO 0.04 K/mm3 (0.00-0.23); BASOPHILS PERCENT AUTO 1 % (0-2); EOSINOPHILS PERCENT AUTO 4 % (0-6); Hematocrit 28.4 % (37.0-53.0); Hemoglobin 9.5 g/dL (13.5-17.5); IMMATURE GRAN ABSOLUTE AUTO 0.17 K/mm3 (0.00-0.10); IMMATURE GRAN PERCENT AUTO 4 % (0-1); LYMPHOCYTES ABSOLUTE AUTO 1.17 K/mm3 (0.84-5.20); LYMPHOCYTES PERCENT AUTO 26 % (21-46); MONOCYTES ABSOLUTE AUTO 0.75 K/mm3 (0.16-1.47); MONOCYTES PERCENT AUTO 17 % (4-13); Mean Corpuscular HGB 36.3 pg (26.0-34.0); Mean Corpuscular HGB Conc 33.5 g/dL (31.5-36.5); Mean Corpuscular Volume 108 fL (80-100); NEUTROPHILS ABSOLUTE AUTO 2.18 K/mm3 (1.96-9.15); NEUTROPHILS PERCENT AUTO 48 % (41-73); Platelet Count 166 K/mm3 (150-400); RDW Coefficient Variation 14.3 % (11.7-14.2); RDW Standard Deviation 56.7 fL (35.1-46.3); Red Blood Cell Count 2.62 M/mm3 (4.30-5.90); White Blood Cell Count 4.51 K/mm3 (4.00-11.30)
[2024-10-21] MEDS ORDERED: CefTRIAXone Sodium 1,000 MG in NS 100 ML IV SCH (09:00)
[2024-10-21] MEDS ORDERED: Mineral Oil 133 ML Enema PR SCH (09:00)
[2024-10-21] MEDS ORDERED: Magnesium Oxide 400 MG Tab PO SCH (09:00)
[2024-10-21] MEDS ORDERED: Furosemide 20 MG Tab PO SCH (09:00)
[2024-10-21 09:14] LABS: Bun/Creatinine Ratio 12.3 (12.0-20.0); Calcium, Blood 8.9 mg/dL (8.5-10.1); Creatinine, Blood 0.9 mg/dL (0.60-1.20); Potassium, Blood 3.8 mmol/L (3.5-5.5)
[2024-10-21] MEDS ORDERED: NS 250 ML IV PRN (10:20)
[2024-10-21] MEDS ORDERED: Lactulose 200 GM/300 ML Enema 300ML BTL PR ONE (14:00)
[2024-10-21 15:42] VITALS: BP 151/72
--- NOTE | 2024-10-21 17:01 | NUR ---
SHIFT SUMMARY PT A&OX4 AND COOPERATIVE WITH STAFF. PT REMAINS BEDREST BUT REQURIES ASSIST X2 WTIH REPOSITIONING. INCREASED PT BOWEL CARE THIS SHIFT WITH LITTLE STOOL NOTED. PT DENIES PASSING GAS. PT ABD NOTED TO BE SEVERELY DISTENTED AND TENDER TO TOUCH. PT HAS VOICED C/O ABD PAIN AND RECIEVED PRN PAIN MEDICATION X1 THIS SHIFT WITH EFFECTIVENESS. PLAN IS FOR PT TO BE TRANSFERED TO A HIGHER LEVEL OF CARE FACILITY FOR SURGICAL INTERVENTION CURRENTLY AWAITING PLACEMENT.
--- NOTE | 2024-10-21 18:03 | NUR ---
PT NOTED TO VOMIT 100ML OF EMESIS YELLOW IN COLOR. PRN MEDICATION GIVEN FOR NAUSEA. WCTM
[2024-10-21 19:52] VITALS: BP 159/68
--- NOTE | 2024-10-21 23:19 | NUR ---
PT REFUSING CPAP. STATES HE DOESN'T WEAR IT ALL THE TIME AT HOME.
[2024-10-22] VITALS (16 sets, daily range): BP systolic 102–161; BP diastolic 43–62
[2024-10-22 05:13] LABS: BASOPHILS ABSOLUTE AUTO 0.03 K/mm3 (0.00-0.23); BASOPHILS PERCENT AUTO 1 % (0-2); EOSINOPHILS ABSOLUTE AUTO 0.22 K/mm3 (0.00-0.68); EOSINOPHILS PERCENT AUTO 5 % (0-6); Hematocrit 29.1 % (37.0-53.0); Hemoglobin 9.6 g/dL (13.5-17.5); IMMATURE GRAN ABSOLUTE AUTO 0.16 K/mm3 (0.00-0.10); IMMATURE GRAN PERCENT AUTO 3 % (0-1); LYMPHOCYTES ABSOLUTE AUTO 1.36 K/mm3 (0.84-5.20); LYMPHOCYTES PERCENT AUTO 29 % (21-46); MONOCYTES ABSOLUTE AUTO 0.93 K/mm3 (0.16-1.47); MONOCYTES PERCENT AUTO 20 % (4-13); Mean Corpuscular Volume 109 fL (80-100); Mean Platelet Volume 10.1 fL (9.1-12.4); NEUTROPHILS ABSOLUTE AUTO 1.98 K/mm3 (1.96-9.15); NEUTROPHILS PERCENT AUTO 42 % (41-73); Platelet Count 177 K/mm3 (150-400); RDW Coefficient Variation 14.5 % (11.7-14.2); RDW Standard Deviation 57.9 fL (35.1-46.3); Red Blood Cell Count 2.67 M/mm3 (4.30-5.90); White Blood Cell Count 4.68 K/mm3 (4.00-11.30)
[2024-10-22 05:48] LABS: Bun/Creatinine Ratio 10.2 (12.0-20.0); Calcium, Blood 8.6 mg/dL (8.5-10.1); Creatinine, Blood 0.88 mg/dL (0.60-1.20); Potassium, Blood 3.3 mmol/L (3.5-5.5)
[2024-10-22] MEDS ORDERED: propofoL 20 ML IV ONE (11:02)
[2024-10-22] MEDS ORDERED: SuccINYLCHOLINE Chloride 100 MG/5 ML 5MLSYR ONE (11:03)
[2024-10-22] MEDS ORDERED: Rocuronium Bromide 10 MG/ML 5ML Injection IV ONE (11:03)
[2024-10-22] MEDS ORDERED: FentaNYL Citrate 50 MCG/ML 2 ML Injection ONE (11:03)
[2024-10-22] MEDS ORDERED: Lactated Ringer's 1,000 ML IV SCH (11:20)
[2024-10-22] MEDS ORDERED: Lidocaine HCl 2% Jelly 120MG/6ML SYR (20MG PER ML) ONE ×2 (11:29→13:15)
[2024-10-22] MEDS ORDERED: Oxymetazoline 0.05% Nasal Relief Spray 15mL BTL ONE (12:03)
[2024-10-22] MEDS ORDERED: Potassium Chl 10MEQ/Water100ML 100 ML IV SCH (12:40)
[2024-10-22] MEDS ORDERED: Ondansetron HCl 2 MG / ML 2ML Vial ONE ×2 (13:10→14:36)
[2024-10-22] MEDS ORDERED: Bupivacaine 0.5% HCl 5 MG/ML 30MLVIAL ONE (13:22)
[2024-10-22] MEDS ORDERED: Sugammadex Sodium 200 MG/2ML SDV (100 MG/ML) ONE (14:02)
[2024-10-22] MEDS ORDERED: HYDROmorphone HCl/Pf 1MG SYR ONE (14:38)
--- NOTE | 2024-10-22 15:15 | NUR ---
POST OP TRANSFER PATIENT RECEIVED FROM OR POST OP COLOSTOMY. PATIENT ALERT AND INTERACTIVE. PATIENT HAVING PAIN IN ABD AREA 05/01. STOMA FLAT AND PINK. DRAINING LIQUID STOOL WITH SMALL AMOUNT OF BLOOD AND GAS. BOWEL TONES TYMPANIC AND HYPERACTIVE. FAMILY AT BEDSIDE.
--- NOTE | 2024-10-22 15:45 | NUR ---
PT TRANSFERED TO ROOM 209 FROM ROOM 325. BEDSIDE REPORT GIVEN TO CARLIE ELIZABETH AND BELONGINGS TAKEN DOWN TO ROOM.
--- NOTE | 2024-10-22 17:28 | NUR ---
SHIFT SUMMARY PATIENT ALERT AND INTERACTIVE. VERBALIZING PAIN IN LQ OF ABDOMIN. PATIENT MEDICATED FOR PAIN WITH SOME RELIEF. PATIENT NOTED TO HAVE MULTIPLE DRESSINGS IN PLACE FOR SKIN BREAKDOWN AND PREVENTION. PATIENT EDEMETOUS. PATIENT ABLE TO HELP TURN IN BED. OSTOMY CONTINUES TO DRAIN LIQUID BROWN STOOL WITH SMALL AMOUNT OF BLOOD AND GAS. BESS DRAINING MADALYN URINE. CONTINUE TO WAIT FOR BED TO TRANSFER. FAMILY AWARE
[2024-10-22] MEDS ORDERED: HYDROmorphone HCl/Pf 1MG SYR IV PRN (23:10)
[2024-10-23 03:08] VITALS: BP 119/49
[2024-10-23 05:35] LABS: BASOPHILS ABSOLUTE AUTO 0.02 K/mm3 (0.00-0.23); BASOPHILS PERCENT AUTO 0 % (0-2); EOSINOPHILS ABSOLUTE AUTO 0.23 K/mm3 (0.00-0.68); EOSINOPHILS PERCENT AUTO 4 % (0-6); Hemoglobin 8.8 g/dL (13.5-17.5); IMMATURE GRAN ABSOLUTE AUTO 0.08 K/mm3 (0.00-0.10); IMMATURE GRAN PERCENT AUTO 1 % (0-1); LYMPHOCYTES ABSOLUTE AUTO 0.89 K/mm3 (0.84-5.20); LYMPHOCYTES PERCENT AUTO 15 % (21-46); MONOCYTES ABSOLUTE AUTO 1.17 K/mm3 (0.16-1.47); MONOCYTES PERCENT AUTO 20 % (4-13); Mean Corpuscular HGB 35.9 pg (26.0-34.0); Mean Corpuscular HGB Conc 32.6 g/dL (31.5-36.5); Mean Corpuscular Volume 110 fL (80-100); Mean Platelet Volume 9.9 fL (9.1-12.4); NEUTROPHILS ABSOLUTE AUTO 3.44 K/mm3 (1.96-9.15); NEUTROPHILS PERCENT AUTO 59 % (41-73); Platelet Count 156 K/mm3 (150-400); RDW Coefficient Variation 14.6 % (11.7-14.2); RDW Standard Deviation 59.6 fL (35.1-46.3); Red Blood Cell Count 2.45 M/mm3 (4.30-5.90); White Blood Cell Count 5.83 K/mm3 (4.00-11.30)
[2024-10-23 06:10] LABS: Albumin, Blood 1.8 g/dL (3.4-5.0); Albumin/Globulin Ratio 0.5 (0.8-1.8); Bilirubin, Total 0.5 mg/dL (0.1-1.0); Bun/Creatinine Ratio 8.2 (12.0-20.0); Calcium, Blood 8.1 mg/dL (8.5-10.1); Creatinine, Blood 0.97 mg/dL (0.60-1.20); Globulin, Blood 3.4 g/dL (2.2-4.0); Potassium, Blood 3.2 mmol/L (3.5-5.5); Total Protein, Blood 5.2 g/dL (6.4-8.2)
--- NOTE | 2024-10-23 06:11 | NUR ---
SHIFT SUMMARY NOC PT A/O X 4. PLEASANT AND COOPERATIVE WITH CARE. POST OP DAY 1 WITH Q4H POST OP VSS. PT HAD LUQ COLOSTOMY PLACED YESTERDAY WITH BROWN DRAINAGE AND RESIDUAL PROCEDURE BLOOD TINGE. PT PAIN BEING MANAGED PER EMAR. PT HAS CX BESS IN PLACE DRAINING TO GRAVITY. ON O2 2L/NC SPO2 >94% ON BIOX. PT CURRENTLY RESTING WITH BED IN LOWEST POSITION, AND CALL LIGHT WITHIN REACH.
[2024-10-23 07:02] VITALS: BP 118/44
[2024-10-23 14:41] VITALS: BP 129/44
--- NOTE | 2024-10-23 18:31 | NUR ---
SHIFT SUMMARY POD1 COLOSTOMY FORMATION FOR ABD DECOMPRESSION, A/OX4, VSS, TOLERATING CLEARS, OUTPUT FROM OSTOMY TODAY WITH FLATUS, VOIDING IN CHRONIC BESS, PAIN MANAGED PER EMAR. NO ACUTE EVENTS THIS SHIFT, CALL LIGHT IN REACH.
[2024-10-23 19:17] VITALS: BP 123/42
[2024-10-23 23:47] VITALS: BP 125/48
[2024-10-24 03:20] VITALS: BP 117/45
--- NOTE | 2024-10-24 05:55 | NUR ---
SHIFT SUMMARY NOC. PT POD 2 FOR NEW OSTOMY ESTABLISHMENT POST PARTIAL LARGE BOWEL OBSTRUCTION. PT A/O X4, GENERALIZED WEAKNESS NOTED IN ALL EXT. FREQUENT REPOSITIONING PERFORMED. PT IS VERY EDEMATOUS T/O, BUE AND BLE ELEVATED ON PILLOWS. OSTOMY BEEFY RED AND PRODUCING GAS AND LIQUID OUTPUT. PT MEDICATED FOR PAIN WITH REPORTED RELIEF OF SX WITH ORALS. MAKES NEEDS KNOWN, CALL LIGHT IN REACH.
[2024-10-24 07:37] VITALS: BP 121/48
[2024-10-24 09:09] LABS: BASOPHILS ABSOLUTE AUTO 0.04 K/mm3 (0.00-0.23); BASOPHILS PERCENT AUTO 1 % (0-2); EOSINOPHILS ABSOLUTE AUTO 0.23 K/mm3 (0.00-0.68); EOSINOPHILS PERCENT AUTO 4 % (0-6); Hematocrit 27.7 % (37.0-53.0); IMMATURE GRAN ABSOLUTE AUTO 0.11 K/mm3 (0.00-0.10); IMMATURE GRAN PERCENT AUTO 2 % (0-1); LYMPHOCYTES ABSOLUTE AUTO 1.59 K/mm3 (0.84-5.20); LYMPHOCYTES PERCENT AUTO 24 % (21-46); MONOCYTES ABSOLUTE AUTO 1.27 K/mm3 (0.16-1.47); MONOCYTES PERCENT AUTO 19 % (4-13); Mean Corpuscular HGB 35.4 pg (26.0-34.0); Mean Corpuscular HGB Conc 32.5 g/dL (31.5-36.5); Mean Corpuscular Volume 109 fL (80-100); Mean Platelet Volume 10.3 fL (9.1-12.4); NEUTROPHILS ABSOLUTE AUTO 3.38 K/mm3 (1.96-9.15); NEUTROPHILS PERCENT AUTO 51 % (41-73); Platelet Count 162 K/mm3 (150-400); RDW Coefficient Variation 14.6 % (11.7-14.2); RDW Standard Deviation 58.4 fL (35.1-46.3); Red Blood Cell Count 2.54 M/mm3 (4.30-5.90); White Blood Cell Count 6.62 K/mm3 (4.00-11.30)
[2024-10-24 09:29] LABS: Bun/Creatinine Ratio 8.6 (12.0-20.0); Calcium, Blood 7.9 mg/dL (8.5-10.1); Creatinine, Blood 0.94 mg/dL (0.60-1.20); Potassium, Blood 2.9 mmol/L (3.5-5.5)
[2024-10-24] MEDS ORDERED: Potassium Chloride 20 MEQ/15 ML UDC PO ONE (12:00)
[2024-10-24 15:06] VITALS: BP 137/45
--- NOTE | 2024-10-24 17:58 | NUR ---
SHIFT SUMMARY POD2 NEW COLOSTOMY FORMATION TO DECOMPRESS ABD FROM LARGE BOWEL OBSTRUCTION, A/OX4, VSS, TOLERATING PO WITH ADVANCED DIET TO HEART HEALTHY DIET THIS MORNING, HIS ARMS AND LEGS ARE MORE PUFFY TODAY WITH INCREASED EDEMA T/O, DENIES ANY SOB. [facility] NO ACUTE EVENTS THIS SHIFT, CALL VALERI IN REACH.
[2024-10-24 18:57] VITALS: BP 135/58
[2024-10-25] VITALS (9 sets, daily range): BP systolic 122–144; BP diastolic 50–79
--- NOTE | 2024-10-25 04:19 | NUR ---
NOC SUMMARY- PT OSTOMY IS STOOLING AND PRODUCING FLATUS. PT PAIN HAS BEEN MANAGED WELL. PT BESS DRAINING TO GRAVITY. PT REPOSITIONED TOLERATED. PT HAS BEEN RESTING QUIETLY THROUGHOUT SHIFT. PT TAKING IN PO FLUIDS WITHOUT ISSUE. CALL LIGHT IN REACH.
[2024-10-25 05:45] LABS: BASOPHILS ABSOLUTE AUTO 0.01 K/mm3 (0.00-0.23); BASOPHILS PERCENT AUTO 0 % (0-2); EOSINOPHILS ABSOLUTE AUTO 0.24 K/mm3 (0.00-0.68); EOSINOPHILS PERCENT AUTO 5 % (0-6); Hematocrit 27.4 % (37.0-53.0); IMMATURE GRAN ABSOLUTE AUTO 0.13 K/mm3 (0.00-0.10); IMMATURE GRAN PERCENT AUTO 3 % (0-1); LYMPHOCYTES ABSOLUTE AUTO 1.26 K/mm3 (0.84-5.20); LYMPHOCYTES PERCENT AUTO 24 % (21-46); MONOCYTES ABSOLUTE AUTO 1.06 K/mm3 (0.16-1.47); MONOCYTES PERCENT AUTO 20 % (4-13); Mean Corpuscular HGB 36.1 pg (26.0-34.0); Mean Corpuscular HGB Conc 32.8 g/dL (31.5-36.5); Mean Corpuscular Volume 110 fL (80-100); Mean Platelet Volume 10.5 fL (9.1-12.4); NEUTROPHILS PERCENT AUTO 48 % (41-73); Platelet Count 163 K/mm3 (150-400); RDW Coefficient Variation 14.7 % (11.7-14.2); RDW Standard Deviation 59.8 fL (35.1-46.3); Red Blood Cell Count 2.49 M/mm3 (4.30-5.90)
[2024-10-25 06:24] LABS: Bun/Creatinine Ratio 9.5 (12.0-20.0); Calcium, Blood 8.4 mg/dL (8.5-10.1); Creatinine, Blood 0.95 mg/dL (0.60-1.20); Potassium, Blood 3.5 mmol/L (3.5-5.5)
[2024-10-25] MEDS ORDERED: Lidocaine 2% Jelly Uro-Jet TOP PRN (08:40)
[2024-10-25] MEDS ORDERED: Furosemide 40 MG Tab PO SCH (09:00)
[2024-10-25] MEDS ORDERED: Enoxaparin 40 MG/0.4 ML SYR SC SCH (09:00)
[2024-10-25] MEDS ORDERED: Potassium Chloride 20 MEQ TabCR PO ONE (11:00)
[2024-10-25] MEDS ORDERED: MetroNIDAZOLE 500 MG Tab PO SCH (14:00)
--- NOTE | 2024-10-25 17:10 | NUR ---
PT TRANSFERRED TO ROOM 227 FROM 209.
--- NOTE | 2024-10-25 17:22 | NUR ---
SHIFT SUMMARY PT A/OX4. PT REQUIRING MINIMAL OXYGEN THERAPY DURING THE DAY TIME. PT'S COLOSTOMY DRAINING STOOL AND PRODUCING FLATUS. PT WAS NOTED TO HAVE WEEPING UPPER EXTREMITIES AND GLOBAL EDEMA. PO LASIX DOSAGE INCREASED. PT HAD GOOD URINE OUTPUT. PT RECEIVED BED BATH. FREQUENT REPOSITIONING FOR COMFORT. KEON CARE PERFORMED AND TOPICAL LIDOCAINE TO URETHRA FOR COMFORT. PT RECEIVED PRN PAIN MEDICATION. PT YE PO INTAKE WELL AND HAS HAD MINIMAL COMPLAINTS. AT THIS TIME, WE ARE AWAITING TRANSFER TO SNF OR [facility]. PLAN OF CARE ONGOING.
[2024-10-26 02:15] VITALS: BP 138/51
--- NOTE | 2024-10-26 04:34 | NUR ---
SHIFT SUMMARY POD 4 NEW OSTOMY TO LLQ. NO ACUTE CHANGES OVERNIGHT. VSS, O2 SAT >90% ON 3L O2 VIA NC. TOLERATING ORALS. BESS DRAINING YELLOW URINE TO GRAVITY. OSTOMY RED/BEEFY c BROWN LIQUID STOOL & FLATUS. NON-WEEPING BILAT UPPER EXTREMITIES, BILAT LOWER EXTREMITIES c 2+ EDEMA. BILAT HEELS & HIPS FLOATED ON PILLOWS. PT TOLERATING Q2 REPOSITIONING. PT REPORTS PAIN TOLERABLE, MEDICATED PER EMAR. ANTICIPATED D/C TO SNF VS. [facility] ON MONDAY. CALL LIGHT IN REACH, BED IN LOWEST POSITION, WILL REPORT TO DAY RN.
[2024-10-26 07:18] VITALS: BP 126/52
[2024-10-26 07:30] LABS: Bun/Creatinine Ratio 8.6 (12.0-20.0); Calcium, Blood 8.1 mg/dL (8.5-10.1); Creatinine, Blood 0.82 mg/dL (0.60-1.20); Potassium, Blood 3.1 mmol/L (3.5-5.5)
[2024-10-26] MEDS ORDERED: Potassium Chloride 20 MEQ TabCR PO ONE (09:00)
--- NOTE | 2024-10-26 12:24 | NUR ---
DRESSING CHANGED OPTIFOAM DRESSING CHANGED ON BILAT HEALS AND L CALF. COCCYX HAS SOME REDNESS AND OPEN SKIN, OPTIFOAM COCCYX DRESSING PLACED AFTER KEON CARE COMPLETE.
[2024-10-26] MEDS ORDERED: Losartan Potassium 25 MG Tab PO SCH (13:00)
[2024-10-26 14:32] VITALS: BP 145/57
--- NOTE | 2024-10-26 16:56 | NUR ---
SHIFT SUMMARY PT IS POD#4. PT IS PASSING FLATUS AND STOOL FROM HIS COLOSTOMY. PAIN MANAGED WITH PO PAIN MEDICATION. PT IS TOLERATING PO. PT IS A LIFT PATIENT AND HAS BEEN OOB TO THE CHAIR THIS SHIFT. PT USES HIS CALL LIGHT APPROPRIATELY.
[2024-10-26] MEDS ORDERED: OxyCODONE HCL 5 MG TAB PO PRN (18:30)
[2024-10-26 19:44] VITALS: BP 135/67
[2024-10-27 04:02] VITALS: BP 139/59
--- NOTE | 2024-10-27 04:17 | NUR ---
SHIFT SUMMARY POD 5-OSTOMY PLACEMENT LLQ ABD. DENIES N/V. YE PO. HYPERACTIVE BT. OSTOMY APPLIANCE INTACT, STOMA BEEFY RED, BROWNISH YELLOW SOFT TO LIQUID BM OUTPUT, PASSING FLATUS OUT OSTOMY. REPORTS 6-8/10 PAIN IN ABD @SURGICAL SITE, MEDICATED W/OXYCODONE & TYLENOL PER EMAR & PT ABLE TO REST. 525ML MADALYN COLOR URINE OUT BESS. VSS. SPO2 >95% RA TO 2L O2 WHILE SLEEPING. +3 EDEMA TO BLE, ELEVATED ON PILLOWS, +1 EDEMA TO BUE-EDEMA STARTED DECREASING ONCE ELEVATED ON PILLOWS. CALL LIGHT IN REACH & PT ABLE TO MAKE NEEDS KNOWN.
[2024-10-27 04:46] LABS: BASOPHILS ABSOLUTE AUTO 0.01 K/mm3 (0.00-0.23); BASOPHILS PERCENT AUTO 0 % (0-2); EOSINOPHILS ABSOLUTE AUTO 0.22 K/mm3 (0.00-0.68); EOSINOPHILS PERCENT AUTO 6 % (0-6); Hematocrit 25.8 % (37.0-53.0); Hemoglobin 8.5 g/dL (13.5-17.5); IMMATURE GRAN ABSOLUTE AUTO 0.08 K/mm3 (0.00-0.10); IMMATURE GRAN PERCENT AUTO 2 % (0-1); LYMPHOCYTES ABSOLUTE AUTO 1.24 K/mm3 (0.84-5.20); LYMPHOCYTES PERCENT AUTO 34 % (21-46); MONOCYTES ABSOLUTE AUTO 0.86 K/mm3 (0.16-1.47); MONOCYTES PERCENT AUTO 24 % (4-13); Mean Corpuscular HGB 35.6 pg (26.0-34.0); Mean Corpuscular HGB Conc 32.9 g/dL (31.5-36.5); Mean Corpuscular Volume 108 fL (80-100); Mean Platelet Volume 10.4 fL (9.1-12.4); NEUTROPHILS ABSOLUTE AUTO 1.22 K/mm3 (1.96-9.15); NEUTROPHILS PERCENT AUTO 34 % (41-73); Platelet Count 195 K/mm3 (150-400); RDW Coefficient Variation 14.7 % (11.7-14.2); RDW Standard Deviation 58.8 fL (35.1-46.3); Red Blood Cell Count 2.39 M/mm3 (4.30-5.90); White Blood Cell Count 3.63 K/mm3 (4.00-11.30)
[2024-10-27 05:01] LABS: Bun/Creatinine Ratio 9.1 (12.0-20.0); Calcium, Blood 7.9 mg/dL (8.5-10.1); Creatinine, Blood 0.88 mg/dL (0.60-1.20)
[2024-10-27 07:46] VITALS: BP 139/76
[2024-10-27] MEDS ORDERED: Atenolol 25 MG Tab PO SCH (09:00)
--- NOTE | 2024-10-27 09:03 | NUR ---
DR. LOVELACE ROUNDED DISCUSSED NEED FOR WOUND CARE ORDERS FOR PT'S BLE. ALSO DISCUSSED NEED FOR OCCUPATIONAL THERAPY FOR ASSISTANCE WITH ADLS. PT'S POTASSIUM LOW, WAITING FOR ORDERS FROM DR. LOVELACE.
[2024-10-27] MEDS ORDERED: Polyethylene Glycol 3350 17 gm PO PRN (09:05)
[2024-10-27] MEDS ORDERED: Potassium Chloride 20 MEQ/15 ML UDC PO SCH (10:00)
[2024-10-27 15:06] VITALS: BP 113/60
--- NOTE | 2024-10-27 15:30 | NUR ---
ATTEMPT[facility] OUT TO [facility] REGARDING [facility]'S CURRENT WOUND CARE TREATMENTS. PER STAFF AT [facility] THIS CANNOT BE OBTAINED ON THE WEEKENDS. FAX SENT TO THE [facility], ATTN: DR. RANDHAWA [phone], TO REQUEST PT'S CURRENT WOUND CARE TREATMENTS FOR OUR RECORDS AND FOR CONTINUED TREATMENT.
[2024-10-27 19:33] VITALS: BP 128/47
--- NOTE | 2024-10-27 20:03 | NUR ---
SHIFT SUMMARY PAIN MANAGED WITH PO PAIN MEDICATION. PT IS A MAX ASSIST WITH THE LIFT WHEN OOB. HE HAS BEEN ENCOURAGED TO PERFORM SOME OF HIS ADLS INDEPENDENTLY, OCCUPATIONAL THERAPY ORDERED. OSTOMY IS HAVING GOOD OUTPUT. BEDSIDE REPORT GIVEN TO JOSE ELIZABETH.
[2024-10-28 04:42] VITALS: BP 133/52
[2024-10-28 05:54] LABS: BASOPHILS ABSOLUTE AUTO 0.01 K/mm3 (0.00-0.23); BASOPHILS PERCENT AUTO 0 % (0-2); EOSINOPHILS ABSOLUTE AUTO 0.26 K/mm3 (0.00-0.68); EOSINOPHILS PERCENT AUTO 6 % (0-6); Hematocrit 26.1 % (37.0-53.0); Hemoglobin 8.6 g/dL (13.5-17.5); IMMATURE GRAN ABSOLUTE AUTO 0.08 K/mm3 (0.00-0.10); IMMATURE GRAN PERCENT AUTO 2 % (0-1); LYMPHOCYTES ABSOLUTE AUTO 1.34 K/mm3 (0.84-5.20); LYMPHOCYTES PERCENT AUTO 31 % (21-46); MONOCYTES ABSOLUTE AUTO 0.78 K/mm3 (0.16-1.47); MONOCYTES PERCENT AUTO 18 % (4-13); Mean Corpuscular HGB 35.7 pg (26.0-34.0); Mean Corpuscular Volume 108 fL (80-100); Mean Platelet Volume 10.5 fL (9.1-12.4); NEUTROPHILS PERCENT AUTO 44 % (41-73); Platelet Count 195 K/mm3 (150-400); RDW Coefficient Variation 14.6 % (11.7-14.2); RDW Standard Deviation 58.6 fL (35.1-46.3); Red Blood Cell Count 2.41 M/mm3 (4.30-5.90); White Blood Cell Count 4.37 K/mm3 (4.00-11.30)
--- NOTE | 2024-10-28 06:03 | NUR ---
SHIFT SUMMARY AOX4. VSS. POD 6-OSTOMY PLACEMENT. STOMA BEEFY RED. PASSING FLATUS & BROWN LIQUID STOOL NOTED. REPORTS 5-8/10 PAIN IN ABD, MOSTLY @STOMA & SURGICAL SITE, REPORTS PAIN MANAGED WELL W/OXYCODONE & TYLENOL. DENIES N/V. TOLERATING PO. CHRONIC BESS W/1100ML MADALYN URINE OUT THIS SHIFT. PT ON RA T/O SHIFT W/SPO2 >93%. DENIES DYSPNEA. HAS OCC PRODUCTIVE COUGH W/THICK WHITE MUCUS. BS DIM IN BASES. +3 EDEMA TO BLE, ELEVATED ON PILLOWS, CLEANSED & CHANGED MEPILEX ON WOUNDS, APPLIED ANTIFUNGAL CREAM ON REDNESS IN GROIN FOLDS. PENDING POSSIBLE DC TO SNF TODAY. CALL LIGHT IN REACH & PT ABLE TO MAKE NEEDS KNOWN.
[2024-10-28 06:23] LABS: Bun/Creatinine Ratio 8.3 (12.0-20.0); Calcium, Blood 8.4 mg/dL (8.5-10.1); Creatinine, Blood 0.85 mg/dL (0.60-1.20); Magnesium, Blood 1.3 mg/dL (1.6-2.4); Potassium, Blood 3.1 mmol/L (3.5-5.5)
[2024-10-28 07:38] VITALS: BP 144/60
[2024-10-28] MEDS ORDERED: Magnesium Sulf 2 GM/Water 50ML 50 ML IV ONE (08:20)
--- NOTE | 2024-10-28 09:48 | NUR ---
MORNING NOTE THIS RN ASSUMED CARE AT APPROX 0715. PATIENT ALERT AND ORIENTED X4. COMMUNICATES NEEDS EFFECTIVELY. CAN BE A BIT FORGETFUL AT TIMES, BUT EASILY REDIRECTABLE. VSS. SBP 140s. MAP >65. DENIES CHEST PAIN, PRESSURE. +3 EDEMA TO BLE, +2 TO BUE. ON ROOM AIR, SATs >90%. DENIES SHORTNESS OF BREATH. OCCASIONAL CONGESTED, PRODUCTIVE COUGH. WEAKNESS THROUGHOUT - LIFT PATIENT 2P ASSIST. BEDBATH AND TRANSFER TO RECLINER CHAIR PRIOR TO BREAKFAST. OSTOMY TO LLQ WITH FLATULENCE AND LOOSE BROWN OUTPUT. PAIN MANAGED PER EMAR. TOLERATING PO INTAKE. CHRONIC BESS CATHETER IN PLACE - DRAINING MADALYN URINE TO GRAVITY. PER CASE MANAGEMENT, PLAN FOR 1100 TRANSPORT AIR VALVE REPAIRER TO DC TO SNF TODAY. CALL LIGHT IN REACH.
[2024-10-28 10:27] LABS: SARS-Cov-2 (COVID-19) PCR, MMC NEGATIVE (NEGATIVE)
--- NOTE | 2024-10-28 10:36 | NUR ---
REPORT GIVEN TO SHEILA ELIZABETH AT [facility] FOR ASSUMPTION OF CARE FOLLOWING TRANSPORT TO SNF.
--- NOTE | 2024-10-28 11:35 | NUR ---
DISCHARGE NOTE NO ACUTE CHANGES SINCE PREVIOUS NOTES. TRANSPORT ARRIVED FOR TRANSFER TO SNF. PATIENT TRANSFERRED FROM CHAIR TO [facility] VIA LIFT. PERSONAL BELONGINGS WITH PATIENT AND HIS . PATIENT TRANSFERRED OFF UNIT AT APPROX 1130.
== END 2024-10-28 11:30 | DRG 981 ==
LOC: ER 15:21 → MEDS 18:00 → ERHOLD 18:00 → MEDS 21:15 → SURS 10-22 15:11
PROVIDERS: Emergency Medicine; Internal Medicine; Surgery; ADMIT Student in an Organized Health Care Education/Training Program
PROC: 0D1L0Z4 Bypass Transverse Colon to Cutaneous, Open Approach (ICD-10-PCS; principal; 2024-10-17)
PROC: 5A09357 Assistance with Respiratory Ventilation, Less than 24 Consecutive Hours, Continuous Positive Airway Pressure (ICD-10-PCS; 2024-10-17)
PROC: 0T9B70Z Drainage of Bladder with Drainage Device, Via Natural or Artificial Opening (ICD-10-PCS; 2024-10-17)
DX: N17.9 Acute kidney failure, unspecified (principal); J86.9 Pyothorax without fistula; K56.600 Partial intestinal obstruction, unspecified as to cause; I50.32 Chronic diastolic (congestive) heart failure; I13.0 Hypertensive heart and chronic kidney disease with heart failure and stage 1 through stage 4 chronic kidney disease, or unspecified chronic kidney disease; F11.20 Opioid dependence, uncomplicated; N40.0 Benign prostatic hyperplasia without lower urinary tract symptoms; J44.9 Chronic obstructive pulmonary disease, unspecified; E78.5 Hyperlipidemia, unspecified; G62.9 Polyneuropathy, unspecified; G47.33 Obstructive sleep apnea (adult) (pediatric); N18.30 Chronic kidney disease, stage 3 unspecified; I48.0 Paroxysmal atrial fibrillation; D63.1 Anemia in chronic kidney disease; D50.9 Iron deficiency anemia, unspecified; I73.9 Peripheral vascular disease, unspecified; G89.29 Other chronic pain; Z99.81 Dependence on supplemental oxygen; I87.8 Other specified disorders of veins; B95.5 Unspecified streptococcus as the cause of diseases classified elsewhere; M54.50 Low back pain, unspecified; E83.42 Hypomagnesemia; E87.6 Hypokalemia; Z95.0 Presence of cardiac pacemaker; Z88.1 Allergy status to other antibiotic agents; Z88.5 Allergy status to narcotic agent; Z87.19 Personal history of other diseases of the digestive system; Z88.8 Allergy status to other drugs, medicaments and biological substances; Z85.46 Personal history of malignant neoplasm of prostate; Z85.51 Personal history of malignant neoplasm of bladder; Z98.890 Other specified postprocedural states; Z79.02 Long term (current) use of antithrombotics/antiplatelets; Z79.2 Long term (current) use of antibiotics; Z79.899 Other long term (current) drug therapy; Z87.01 Personal history of pneumonia (recurrent); Z87.891 Personal history of nicotine dependence
CPT/HCPCS: 36415; 71045; 74018; 76770; 80048; 80053; 80069; 82607; 82728; 82746; 83540; 83550; 83735; 83880; 84132; 84439; 85025; 85027; 93971; 94640; 94664; 94760; 94762; 97110; 97162; 97530; 99285-25; A9270; C1751; J0330; J0696; J0780; J1171; J1644; J1650; J2405; J2704; J3010; J3475; J3480; J7030; J7050; J7120; U0002

== ENCOUNTER 2025-01-14 15:00 | Emergency (ER) | payer OTHER ==
[~2025-01-14] VITALS: Ht 177.8 cm; Wt 115.7 kg
[2025-01-14 15:22] VITALS: BP 170/92
[2025-01-14] MEDS ORDERED: FAMO20 PO (15:45)
[2025-01-14] MEDS ORDERED: SERT25 PO (15:46)
[2025-01-14] MEDS ORDERED: FINA5 PO (15:46)
[2025-01-14] MEDS ORDERED: MELA3 PO (15:46)
[2025-01-14] MEDS ORDERED: LOSA25 PO (15:47)
[2025-01-14 15:50] LABS: BASOPHILS ABSOLUTE AUTO 0.04 K/mm3 (0.00-0.23); BASOPHILS PERCENT AUTO 1 % (0-2); EOSINOPHILS ABSOLUTE AUTO 0.35 K/mm3 (0.00-0.68); EOSINOPHILS PERCENT AUTO 4 % (0-6); Hematocrit 30.9 % (37.0-53.0); Hemoglobin 10.4 g/dL (13.5-17.5); IMMATURE GRAN ABSOLUTE AUTO 0.06 K/mm3 (0.00-0.10); IMMATURE GRAN PERCENT AUTO 1 % (0-1); LYMPHOCYTES ABSOLUTE AUTO 1.77 K/mm3 (0.84-5.20); LYMPHOCYTES PERCENT AUTO 21 % (21-46); MONOCYTES ABSOLUTE AUTO 0.71 K/mm3 (0.16-1.47); MONOCYTES PERCENT AUTO 9 % (4-13); Mean Corpuscular HGB 35.4 pg (26.0-34.0); Mean Corpuscular HGB Conc 33.7 g/dL (31.5-36.5); Mean Corpuscular Volume 105 fL (80-100); Mean Platelet Volume 9.8 fL (9.1-12.4); NEUTROPHILS ABSOLUTE AUTO 5.34 K/mm3 (1.96-9.15); NEUTROPHILS PERCENT AUTO 65 % (41-73); Platelet Count 194 K/mm3 (150-400); RDW Coefficient Variation 13.2 % (11.7-14.2); RDW Standard Deviation 50.6 fL (35.1-46.3); Red Blood Cell Count 2.94 M/mm3 (4.30-5.90); White Blood Cell Count 8.27 K/mm3 (4.00-11.30)
[2025-01-14 15:54] LABS: International Normalized Ratio 1.02; Prothrombin Time Results 10.9 Sec (9.7-11.5)
[2025-01-14 16:08] LABS: Albumin, Blood 3.1 g/dL (3.4-5.0); Albumin/Globulin Ratio 0.9 (0.8-1.8); Bilirubin, Total 0.5 mg/dL (0.1-1.0); Bun/Creatinine Ratio 27.9 (12.0-20.0); Calcium, Blood 9.4 mg/dL (8.5-10.1); Creatinine, Blood 1.29 mg/dL (0.60-1.20); Globulin, Blood 3.5 g/dL (2.2-4.0); Potassium, Blood 4.2 mmol/L (3.5-5.5); Total Protein, Blood 6.6 g/dL (6.4-8.2)
[2025-01-14] MEDS ORDERED: FentaNYL Citrate 50 MCG/ML 2 ML Injection IV ONE (16:10)
== END 2025-01-14 18:15 | disposition home or self-care (01) ==
LOC: ER 15:00
PROVIDERS: Student in an Organized Health Care Education/Training Program
DX: S00.83XA Contusion of other part of head, initial encounter (principal); S60.512A Abrasion of left hand, initial encounter; S60.511A Abrasion of right hand, initial encounter; S80.212A Abrasion, left knee, initial encounter; I12.9 Hypertensive chronic kidney disease with stage 1 through stage 4 chronic kidney disease, or unspecified chronic kidney disease; N18.30 Chronic kidney disease, stage 3 unspecified; E78.5 Hyperlipidemia, unspecified; J44.9 Chronic obstructive pulmonary disease, unspecified; G47.33 Obstructive sleep apnea (adult) (pediatric); I48.0 Paroxysmal atrial fibrillation; Z88.0 Allergy status to penicillin; Z88.1 Allergy status to other antibiotic agents; Z88.5 Allergy status to narcotic agent; Z88.8 Allergy status to other drugs, medicaments and biological substances; Z79.01 Long term (current) use of anticoagulants; Z79.899 Other long term (current) drug therapy; Z59.89 Other problems related to housing and economic circumstances; V28.09XA Other motorcycle driver injured in noncollision transport accident in nontraffic accident, initial encounter
CPT/HCPCS: 70450; 72125; 72128; 72131; 73560-LT; 80053; 85025; 85610; 85730; 93005; 93010; 96374; 99285-25; J3010

== ENCOUNTER 2025-01-26 08:20 | Inpatient (IN) | payer OTHER ==
[~2025-01-26] VITALS: Ht 180.3 cm; Wt 102.9 kg
[~2025-01-26 08:20] MED LIST changes: +FAMO20 PO; +LOSA25 PO; +MELA3 PO; +SERT25 PO
[2025-01-26 09:13] LABS: BASOPHILS ABSOLUTE AUTO 0.04 K/mm3 (0.00-0.23); BASOPHILS PERCENT AUTO 1 % (0-2); EOSINOPHILS ABSOLUTE AUTO 0.33 K/mm3 (0.00-0.68); EOSINOPHILS PERCENT AUTO 4 % (0-6); Hematocrit 27.4 % (37.0-53.0); Hemoglobin 9.1 g/dL (13.5-17.5); IMMATURE GRAN PERCENT AUTO 1 % (0-1); LYMPHOCYTES ABSOLUTE AUTO 1.75 K/mm3 (0.84-5.20); LYMPHOCYTES PERCENT AUTO 22 % (21-46); MONOCYTES ABSOLUTE AUTO 0.76 K/mm3 (0.16-1.47); MONOCYTES PERCENT AUTO 9 % (4-13); Mean Corpuscular HGB Conc 33.2 g/dL (31.5-36.5); Mean Corpuscular Volume 105 fL (80-100); Mean Platelet Volume 10.2 fL (9.1-12.4); NEUTROPHILS ABSOLUTE AUTO 5.15 K/mm3 (1.96-9.15); NEUTROPHILS PERCENT AUTO 63 % (41-73); Platelet Count 179 K/mm3 (150-400); RDW Coefficient Variation 13.8 % (11.7-14.2); RDW Standard Deviation 52.1 fL (35.1-46.3); White Blood Cell Count 8.13 K/mm3 (4.00-11.30)
[2025-01-26 09:46] LABS: Bilirubin, Total 0.4 mg/dL (0.1-1.0); Bun/Creatinine Ratio 28.6 (12.0-20.0); Calcium, Blood 10.5 mg/dL (8.5-10.1); Creatinine, Blood 1.82 mg/dL (0.60-1.20); Globulin, Blood 3.1 g/dL (2.2-4.0); Magnesium, Blood 1.8 mg/dL (1.6-2.4); Potassium, Blood 4.4 mmol/L (3.5-5.5); Total Protein, Blood 6.1 g/dL (6.4-8.2)
[2025-01-26 09:50] LABS: Influenza A, PCR NEGATIVE (NEGATIVE); Influenza B, PCR NEGATIVE (NEGATIVE); Resp Syncytial Virus, PCR NEGATIVE (NEGATIVE); SARS-Cov-2 (COVID-19) PCR, MMC NEGATIVE (NEGATIVE)
[2025-01-26] MEDS ORDERED: Ondansetron HCl 2 MG / ML 2ML Vial IV ONE (09:50)
[2025-01-26] MEDS ORDERED: NS 1,000 ML IV SCH ×2 (10:10→15:15)
[2025-01-26 13:58] LABS: Bun/Creatinine Ratio 29.6 (12.0-20.0); Calcium, Blood 10.1 mg/dL (8.5-10.1); Creatinine, Blood 1.69 mg/dL (0.60-1.20); Potassium, Blood 3.9 mmol/L (3.5-5.5)
[2025-01-26] MEDS ORDERED: Acetaminophen 325 MG TABLET PO PRN (15:10)
[2025-01-26] MEDS ORDERED: Baclofen 10 MG Tab PO PRN (15:15)
[2025-01-26] MEDS ORDERED: Albuterol 2.5 MG/3 ML VIAL INH PRN (15:20)
[2025-01-26] MEDS ORDERED: Polyethylene Glycol 3350 17 gm PO PRN (15:20)
[2025-01-26] MEDS ORDERED: Nitroglycerin 0.4 MG SUBL SL PRN (15:20)
[2025-01-26] MEDS ORDERED: Ipratropium/Albuterol SulF 2.5-0.5MG/3 ML Amp INH SCH (15:30)
[2025-01-26] MEDS ORDERED: Albuterol HFA200 ACT/6.7 GM INH INH PRN (15:30)
[2025-01-26] MEDS ORDERED: Mometasone Furoate Inhaler 220 mcg 14 ACT INH SCH (15:30)
[2025-01-26 17:58] VITALS: BP 125/48
--- NOTE | 2025-01-26 18:19 | NUR ---
ADMISSION NOTE: PATIENT ARRIVED TO THE UNIT VIA GURNEY AT 1725 AND WAS TRANSFERRED ONTO THE BED. THE PATIENT WAS WIPED DOWN, KEON/BESS CARE PROVIDED, TELE HOOKED UP, IV ASSESSED, AND SKIN ASSESSED WITH DR. RAYO AND JUAN MANUEL Soriano RN AT BEDSIDE. PATIENT IN BED, CALL LIGHT WITHIN REACH, NO SIGNS OR SYMPTOMS OF DISTRESS, PATIENT STATES THAT HIS FAMILY DOESN'T NEED NOTIFIED OF HIS ADMISSION; THEY ARE AWARE. PATIENT STARTED ON HIS 2ND TO LAST BAG OF NS AT 100ML/HR, IS EATING DINNER, PLAN OF CARE ONGOING.
[2025-01-26] MEDS ORDERED: Sod Ferric Gluc Complx/Sucrose 125 MG in NS 100 ML IV SCH (19:00)
[2025-01-26 19:44] VITALS: BP 122/44
[2025-01-26 20:43] LABS: Norovirus GI/GII Detected (NOT DETECT)
[2025-01-26 20:44] LABS: Adenovirus F 40/41 Not Detected (NOT DETECT); Astrovirus Not Detected (NOT DETECT); Campylobacter Sp Not Detected (NOT DETECT); Cryptosporidium Not Detected (NOT DETECT); Cyclospora Cayetanensis Not Detected (NOT DETECT); E. Coli O157 Not Detected (NOT DETECT); Entamoeba Histolytica Not Detected (NOT DETECT); Enteroaggregative E. coli-EAEC Not Detected (NOT DETECT); Enteropathogenic E. coli-EPEC Not Detected (NOT DETECT); Enterotoxigenic E. coli-ETEC Not Detected (NOT DETECT); Giardia Lamblia Not Detected (NOT DETECT); Plesiomonas Shigelloides Not Detected (NOT DETECT); Rotavirus A Not Detected (NOT DETECT); Salmonella Sp Not Detected (NOT DETECT); Sapovirus Not Detected (NOT DETECT); Shiga Toxin-prod E. coli-STEC Not Detected (NOT DETECT); Shigella/Enteroin E. coli-EIEC Not Detected (NOT DETECT); Vibrio Cholerae Not Detected (NOT DETECT); Vibrio Sp Not Detected (NOT DETECT); Yersinia Enterocolitica Not Detected (NOT DETECT)
[2025-01-26] MEDS ORDERED: Atorvastatin 40 MG Tab PO SCH (21:00)
[2025-01-26] MEDS ORDERED: Famotidine 20 MG Tab PO SCH (21:00)
[2025-01-26] MEDS ORDERED: Melatonin 3 MG Tab PO SCH (21:00)
[2025-01-26] MEDS ORDERED: Lactobacil 2-S.Thermo-Bifido 1 1 Cap PO SCH (21:00)
[2025-01-26] MEDS ORDERED: Banana Flakes/Tos 1 EA Powder Pack PO SCH (21:00)
[2025-01-26] MEDS ORDERED: Gabapentin 300 MG Cap PO SCH (21:00)
[2025-01-26] MEDS ORDERED: Acetaminophen 650 MG Supp PR ONE (23:05)
[2025-01-26] MEDS ORDERED: Acetaminophen 650 MG Supp PR PRN (23:10)
[2025-01-27] VITALS (7 sets, daily range): BP systolic 98–152; BP diastolic 39–58
--- NOTE | 2025-01-27 04:42 | NUR ---
TIRE FABRIC IMPREGNATING RANGE TENDER SUMMARY VSS. REMAINS BEDFAST AT NIGHT HE IS WHEELCHAIR BOUND. VOICED NO FEELIG IN BLE BELOW HIS KNEES. REPOSISIONED ABOUT EVERY 2 HRS HE ALLOWED. BESS DRAINING, COLOSTOMY INTACT. ON PRECAUTIONS FOR C-DIFF TO BE RULED OUT. HAS BEEN RESTING QUIETLY WITH INTERMITTENT INTERRUPTIONS - VOICED PAIN IN BACK, RECEIVED PO TYLENOL AND TYLENOL SUPP THIS SHIFT - MEDS EFFECTIVE, CURRENTLY RESTING QUIETLY. HOB ELEVATED FOR COMFORT. CALL LIGHT IN REACH, RAILS UP X 2 AND BED IN LOW POSITION FOR SAFETY. IVF INFUSING. SEE MAR FOR DETAILS. WILL CONTINUE TO MONITOR
[2025-01-27 07:07] LABS: BASOPHILS ABSOLUTE AUTO 0.03 K/mm3 (0.00-0.23); BASOPHILS PERCENT AUTO 0 % (0-2); EOSINOPHILS ABSOLUTE AUTO 0.46 K/mm3 (0.00-0.68); EOSINOPHILS PERCENT AUTO 5 % (0-6); Hematocrit 24.9 % (37.0-53.0); Hemoglobin 8.2 g/dL (13.5-17.5); IMMATURE GRAN ABSOLUTE AUTO 0.06 K/mm3 (0.00-0.10); IMMATURE GRAN PERCENT AUTO 1 % (0-1); LYMPHOCYTES ABSOLUTE AUTO 1.46 K/mm3 (0.84-5.20); LYMPHOCYTES PERCENT AUTO 17 % (21-46); MONOCYTES ABSOLUTE AUTO 0.76 K/mm3 (0.16-1.47); MONOCYTES PERCENT AUTO 9 % (4-13); Mean Corpuscular HGB 35.3 pg (26.0-34.0); Mean Corpuscular HGB Conc 32.9 g/dL (31.5-36.5); Mean Corpuscular Volume 107 fL (80-100); Mean Platelet Volume 10.6 fL (9.1-12.4); NEUTROPHILS ABSOLUTE AUTO 5.91 K/mm3 (1.96-9.15); NEUTROPHILS PERCENT AUTO 68 % (41-73); Platelet Count 156 K/mm3 (150-400); RDW Standard Deviation 53.9 fL (35.1-46.3); Red Blood Cell Count 2.32 M/mm3 (4.30-5.90); White Blood Cell Count 8.68 K/mm3 (4.00-11.30)
[2025-01-27 07:27] LABS: Bun/Creatinine Ratio 29.5 (12.0-20.0); Calcium, Blood 9.4 mg/dL (8.5-10.1); Creatinine, Blood 1.39 mg/dL (0.60-1.20); Potassium, Blood 4.1 mmol/L (3.5-5.5)
[2025-01-27] MEDS ORDERED: Ferrous Sulfate 325 MG Tab PO SCH (09:00)
[2025-01-27] MEDS ORDERED: Clopidogrel Bisulfate 75 MG Tab PO SCH (09:00)
[2025-01-27] MEDS ORDERED: Ascorbic Acid 500 MG Tab PO SCH (09:00)
[2025-01-27] MEDS ORDERED: Sertraline HCl 50 MG Tab PO SCH (09:00)
[2025-01-27] MEDS ORDERED: Finasteride 5 MG Tab PO SCH (09:00)
[2025-01-27] MEDS ORDERED: Empagliflozin 10 MG TAB PO SCH (09:00)
[2025-01-27] MEDS ORDERED: Enoxaparin 40 MG/0.4 ML SYR SC SCH (09:00)
--- NOTE | 2025-01-27 19:42 | NUR ---
PT PLEASANT TODAY. NO C/O PAIN. GENERL PUFFINESS IN BUE. MARC +2. [facility]APPED BY [facility] AND DESIRES THEY CHANGE. BESS DRAINING YELLOW FLUID, HAD SEMI FORMED STOOL TODAY IN OSTOMY BAG. TELE AV PACED AT 66. VSS. STATES NO FEELING BELOW CALVES. 1-2 ASST FROM BED TO CHAIR. BED IN LOW POSITION, CALL LITE IN REACH. CALLS APPROP
[2025-01-28 02:46] VITALS: BP 131/47
--- NOTE | 2025-01-28 04:42 | NUR ---
PT CALM, COOPERATIVE, AND PLEASANT THROUGHOUT SHIFT, VSS, BLE WRAPPED DRESSING CDI, ADEQUATE URINE OUTPUT W/ BESS DRAINING AND CARE PROVIDED APPROPRIATELY. CONVERSES APPROPRIATELY WITH RN, NO CONCERNS AT THIS TIME. RRR AND UNLABORED.
[2025-01-28 06:53] LABS: Bun/Creatinine Ratio 27.8 (12.0-20.0); Calcium, Blood 8.9 mg/dL (8.5-10.1); Creatinine, Blood 1.08 mg/dL (0.60-1.20); Potassium, Blood 3.9 mmol/L (3.5-5.5)
[2025-01-28 07:52] VITALS: BP 138/56
[2025-01-28] MEDS ORDERED: Famotidine 20 MG Tab PO SCH (09:00)
[2025-01-28 15:29] VITALS: BP 132/95
--- NOTE | 2025-01-28 16:33 | NUR ---
SHIFT SUMMARY 1130 ASSUMED CARE OF PT, SITTING UP TO CHAIR AT . MULTIPLE FAMILY AND FRIENDS IN THRU OUT THE DAY. TELE MX CALLED JUST PRIOR TO LUNCH THAT PT'S PACEMAKER WAS PRODUCING ABNORMAL BEATS; SPIKING ON EVERY T-WAVE. DR MADRID NOTIFIED; NEW ORDERS PLACED. PT AND REPORTED THAT THEY WERE AWARE OF THE ABNORMAL BEATS AND HAD AN APPOINTMENT PRIOR TO COMING TO HOSPITAL WHICH IS NOW ON HOLD. [facility] RN NOTIFIED OF NEW ORDERS FOR DEVICE CHECK AND ATTEMPTED MANY MULTIPLE TIMES, TO PRESENT, TO CONTACT [facility]. NO ONE IS AVAILABLE TO PRESENT. PCU CERTIFIED LEGAL INVESTIGATOR ALSO NOTIFIED AND WILL BRING EQUIPMENT WHEN ABLE. PT AND KEPT UPDATED. PT ADMITTED FOR [facility]; NOW [facility] [place] [facility]. PT WITH CHRONIC BESS; PER REPORT, PT REFUSING TO ALLOW IT TO BE CHANGED PER HOSPITAL PROTOCOL. PT REPORTING STOOL OUTPUT IN OSTOMY GETTING TO FIRM NOW WITH BANANA FLAKES. PT TO DECLINE BANANA FLAKES TONIGHT. DENIES FURTHER NEEDS AT THIS TIME. CALL LT IN REACH.
[2025-01-28 21:13] VITALS: BP 160/70
[2025-01-29 00:24] VITALS: BP 152/67
[2025-01-29 05:09] VITALS: BP 127/55
--- NOTE | 2025-01-29 07:34 | NUR ---
SHIFT SUMMARY AT START OF SHIFT, PT SITTING UP IN BED WATCHING TV. PT REQUESTED HIS 2100 MELATONIN BE HELD UNTIL SOME TIME BETWEEN MIDNIGHT AND ONE O CLOCK. PT GIVEN OTHER 2100 MEDICATIONS PER EMAR. BANANA FLAKESHELD, IT WAS NOTED THAT PT STOOL WAS HARD, AND CAUSING DISCOMFORT TO PASS THROUGH HIS STOMA. PT HAS BEEN PLEASANT AND COOPERATIVE WITH HIS CARE. AFTER PT RECEIVED HIS MELATONIN, AND SOME TYLENOL FOR PAIN MANAGEMENT, PT LYING IN BED RESTING, TRYING TO SLEEP. CALL LIGHT IN REACH. PT UP AND WATCHING TV. REPORT GIVEN TO DAYSHIFT [place].
[2025-01-29 08:26] VITALS: BP 131/57
[2025-01-29 12:45] LABS: SARS-Cov-2 (COVID-19) PCR, MMC NEGATIVE (NEGATIVE)
--- NOTE | 2025-01-29 14:00 | NUR ---
SHIFT SUMMARY AND DISCHARGE PATIENT ALERT AND INTERACTIVE. PATIENT TO TRANSFER TO [facility] TODAY. PACER INTEROGATED PRIOR TO DISCHARGE. PATIENT ABLE TO TRANSFER FROM BED TO CHAIR AND FROM CHAIR TO WHEELCHAIR. PATIENT NOTED TO HAVE LEGS WRAPPED. [facility] CATHETER IN PLACE AND DRAINING. OSTOMY DRAINING LIQUID WATERY STOOL WITH LARGE AMOUNT OF GAS. STOMA PINK. MULTIPLE BRUISES NOTED IN VARIOUS SHADES INCLUDING AROUND THE L EYE. REPORT CALL[facility] AT [facility]. [facility]. PRESENT FOR TRANSFER, ROOM CHECK DONE WITH PRIOR TO TRANSPORT.
== END 2025-01-29 13:54 | DRG 683 ==
LOC: ER 08:20 → ERHOLD 15:05 → MEDS 15:05 → ENPENDDIS 01-29 12:29 → MEDS 01-29 13:54
PROVIDERS: Internal Medicine; Physician Assistant; ADMIT Internal Medicine
DX: N17.9 Acute kidney failure, unspecified (principal); E87.1 Hypo-osmolality and hyponatremia; I50.32 Chronic diastolic (congestive) heart failure; J44.9 Chronic obstructive pulmonary disease, unspecified; I10 Essential (primary) hypertension; E78.5 Hyperlipidemia, unspecified; I44.0 Atrioventricular block, first degree; G47.33 Obstructive sleep apnea (adult) (pediatric); I73.9 Peripheral vascular disease, unspecified; N18.30 Chronic kidney disease, stage 3 unspecified; D50.9 Iron deficiency anemia, unspecified; I48.0 Paroxysmal atrial fibrillation; E66.01 Morbid (severe) obesity due to excess calories; D63.1 Anemia in chronic kidney disease; F10.10 Alcohol abuse, uncomplicated; R29.6 Repeated falls; N40.1 Benign prostatic hyperplasia with lower urinary tract symptoms; R33.8 Other retention of urine; K21.9 Gastro-esophageal reflux disease without esophagitis; R42 Dizziness and giddiness; L89.151 Pressure ulcer of sacral region, stage 1; K52.9 Noninfective gastroenteritis and colitis, unspecified; S00.12XD Contusion of left eyelid and periocular area, subsequent encounter; Z88.1 Allergy status to other antibiotic agents; Z88.5 Allergy status to narcotic agent; Z93.3 Colostomy status; Z85.46 Personal history of malignant neoplasm of prostate; Z85.51 Personal history of malignant neoplasm of bladder; Z88.8 Allergy status to other drugs, medicaments and biological substances; Z79.51 Long term (current) use of inhaled steroids; Z79.899 Other long term (current) drug therapy; Z87.09 Personal history of other diseases of the respiratory system; Z87.19 Personal history of other diseases of the digestive system; Z98.890 Other specified postprocedural states; Z95.0 Presence of cardiac pacemaker; Z87.891 Personal history of nicotine dependence; Z99.89 Dependence on other enabling machines and devices; Z46.6 Encounter for fitting and adjustment of urinary device; Z91.148 Patient's other noncompliance with medication regimen for other reason; W05 Fall from non-moving wheelchair, nonmotorized scooter and motorized mobility scooter
CPT/HCPCS: 0241U; 36415; 71045; 74177; 80048; 80053; 83735; 85025; 87324; 87507; 94640; 94664; 94760; 96361; 96374; 97110; 97112; 97161; 97165; 97530; 99285-25; A9270; J1650; J2405; J2916; J7030; Q9967; U0002